=== PATIENT | male | born 1970 | race African-American/Black ===

== ENCOUNTER 2020-12-20 20:21 | Inpatient (IN) | payer BC, SELFPAY ==
[~2020-12-20 20:21] MED LIST: Heparin 1,000 UNITS/ML VIAL ONE
[2020-12-20] MEDS ORDERED: Cefepime 2 GM VIAL ONE (20:50)
[2020-12-20] MEDS ORDERED: Cefepime 1 GM VIAL ONE (20:56)
[2020-12-20 20:59] LABS: Hemoglobin 11.1 g/dL (14.0-18.0); Mean Corpuscular HGB CONC 31.1 g/dL (32.0-36.0); Mean Corpuscular Hemoglobin 28.7 pg (27.0-31.0); Mean Corpuscular Volume 92.3 fL (78.0-98.0); Mean Platelet Volume 8.6 fL (7.4-10.4); Platelet Count 276 thou/uL (130-400); RBC Distribution Width 11.1 % (11.5-14.5); Red Blood Cell (RBC) Count 3.85 mill/uL (4.70-6.10)
[2020-12-20] MEDS ORDERED: VANCOMYCIN 1.75 GM/350 ML BAG 1.75 GM in Premix Bag 1 BAG IVPB SCH (21:00)
[2020-12-20] MEDS ORDERED: Cefepime 1 GM in Sodium Chloride 0.9% 100 ML IVPB SCH (21:00)
[2020-12-20 21:14] LABS: Band 14 % (5-11); Lymphocytes 12 % (21-51); MDiff Complete? YES; Monocytes 13 % (0-10); Myelocyte 1 % (0-0); Neutrophil 60 % (42-75)
[2020-12-20 21:20] LABS: ALT (SGPT) 15 U/L (8-55); AST (SGOT) 13 U/L (5-34); Albumin 3.5 g/dL (3.5-5.0); Alkaline Phosphatase 118 U/L (40-110); Anion Gap 27 mmol/L (10-20); BUN (Urea Nitrogen) 45 mg/dL (8.4-25.7); Bilirubin, Total 0.7 mg/dL (0.2-1.2); Calc. Creatinine Clearance 0 mL/min (70-130); Calcium 9.4 mg/dL (7.8-10.44); Carbon Dioxide 15 mmol/L (22-29); Chloride 87 mmol/L (98-107); Globulin 4.4 g/dL (2.4-3.5); Protein, Total 7.9 g/dL (6.0-8.3); Sodium 124 mmol/L (136-145)
[2020-12-20] MEDS ORDERED: Acetaminophen 500 MG TAB ONE (21:22)
[2020-12-20 21:30] LABS: Glucose 703 mg/dL (70-105)
[2020-12-20] MEDS ORDERED: INSULIN REGULAR IN 0.9 % NACL 100 UNIT/100 ML BAG ONE (21:44)
--- NOTE | 2020-12-20 21:46 | RAD ---
EXAM: CHEST ONE VIEW HISTORY: Diabetic left foot. Open and draining wound. Discoloration to bottom of foot. COMPARISON: None FINDINGS: The cardiac silhouette and pulmonary vasculature are within normal limits. Inferior right lateral cos tophrenic angle is excluded from view. The lungs are otherwise clear. The osseous structures are intact. IMPRESSION: Exclusion of the inferior right lateral costophrenic angle. There is otherwise no acute cardiopulmona ry process.
--- NOTE | 2020-12-20 21:50 | RAD ---
Exam: XR Foot Lt 3 View STANDARD HISTORY: Diabetic left foot. Open and draining wound. Discoloration to bottom of foot. COMPARISON: None FINDINGS: Question of subtle subtendinous emphysema overlying the distal forefoot at the level of the metacarpa l phalangeal joints. Subcutaneous edema is seen involving the foot greater dorsally. An irregular metallic density seen along the plantar aspect of the distal forefoot which is only seen on the later al view and may be related to overlying artifact as this is not seen on opposing images. No osseous destruction is evident. No fracture or dislocation is seen. Scattered degenerative changes are present greater involving the tarsometatarsal joints. A plantar calcaneal enthesophyte is seen. Vascular calcifications are identified. IMPRESSION: 1. Subcutaneous soft tissue swelling with suggestion of subtle subcutaneous emphysema involving the d istal aspect of the forefoot only well appreciated on the AP view and not seen on lateral view. This could potentially be artifactual. Subcutaneous edema could be related to cellulitis in the corre ct clinical scenario. 2. No osseous destruction is seen to suggest radiographic evidence of osteomyelitis. If there is conc brandi for osteomyelitis, MRI left foot is recommended for further evaluation. 3. Metallic density overlying distal aspect plantar portion of the left foot only seen on lateral vie w and likely artifactual as this is not seen on opposing images.
--- NOTE | 2020-12-20 23:33 | PDOC.HHP ---
Hospitalist HPI Left foot swelling History of Present Illness: This is a 50-year-old male patient with a history of diabetes mellitus, hypertension who presents with swelling of his left foot for the past 3 days. Patient notes he woke up about 3 days ago to fill his left foot was and had difficulty stepping on it. He also noted pain rise up the medial side of his legs which have since then resolved. His left foot became more swollen and painful thus leading him to come to the ED for further evaluation. He denies any associated fever frequency dysuria nausea vomiting or diarrhea. He notes having had poor appetite for the past week and has hardly had any food. He went in for Covid test 2 days ago on that account which turned out negative. He denies any associated trauma to his foot. At presentation his blood pressure was 101/67, pulse 105, respiratory rate 20, temperature 101.5. He was saturating 99% on room air. Labs showed WBC of 27.0, hemoglobin 11.1, platelet count 276. Chemistry showed sodium of 124, bicarb 13, creatinine 2.67 with no baseline on file glucose was 703 and anion gap was 22. No initial ABG done. X-ray of his chest showed no acute intrathoracic process. X-ray of his foot could not exclude osteomyelitis. Patient was given IV fluids and started on DKA protocol. He was started on vancomycin and cefepime. Also started on DKA protocol hospitalist team was consulted for admission. Allergies/Adverse Reactions: Allergy/AdvReac Type Severity Reaction Status Date / Time No Known Drug Allergies Allergy Verified 12/21/20 16:49 Home Medications: Medication Instructions Recorded Confirmed Type Gabapentin 1 tab PO DAILY 12/21/20 12/21/20 History metFORMIN HCl 1 tab PO DAILY 12/21/20 12/21/20 History Past History: PMHx: Diabetes mellitus PSHx: Appendectomy FHx: None of significance Social: Lives alone, no smoking history. Occasional alcohol use Hospitalist HPI ROS Constitutional: reports: weakness, malaise. denies: fever, chills, sweats Respiratory: reports: cough, shortness of breath (Occasional acute), SOB with excertion. denies: hemoptysis Cardiovascular: denies: chest pain, palpitations, orthopnea Gastrointestinal: reports: nausea, vomiting. denies: abdominal pain, diarrhea, constipation Genitourinary: reports: other (Oliguria). denies: dysuria, frequency, incontinence, retention Musculoskeletal: reports: foot pain. denies: neck pain, shoulder pain Neurological: denies: weakness, numbness, incoordination, change in speech All other systems reviewed; all pertinent +/- noted in HPI/Subj Hospitalist Exam Extremities: no cyanosis, 1+ LE edema Extremities - other findings: Left foot swollen with blistering on dorsal surface and dark area on planta Hospitalist Results Result Diagrams: 12/26/20 06:00 12/26/20 21:06 Lab results: Laboratory Last Values WBC 27.0 thou/uL (4.8-10.8) H 12/20/20 20:39 RBC 3.85 mill/uL (4.70-6.10) L 12/20/20 20:39 Hgb 11.1 g/dL (14.0-18.0) L 12/20/20 20:39 Hct 35.5 % (42.0-52.0) L 12/20/20 20:39 MCV 92.3 fL (78.0-98.0) 12/20/20 20:39 MCH 28.7 pg (27.0-31.0) 12/20/20 20:39 MCHC 31.1 g/dL (32.0-36.0) L 12/20/20 20:39 RDW 11.1 % (11.5-14.5) L 12/20/20 20:39 Plt Count 276 thou/uL (130-400) 12/20/20 20:39 MPV 8.6 fL (7.4-10.4) 12/20/20 20:39 Neutrophils % (Manual) 60 % (42-75) 12/20/20 20:39 Band Neuts % (Manual) 14 % (5-11) H 12/20/20 20:39 Lymphocytes % (Manual) 12 % (21-51) L 12/20/20 20:39 Monocytes % (Manual) 13 % (0-10) H 12/20/20 20:39 Myelocytes % 1 % (0-0) H 12/20/20 20:39 Lymphocytes # Not Reportable 12/20/20 20:39 Sodium 124 mmol/L (136-145) L 12/20/20 20:39 Potassium 5.0 mmol/L (3.5-5.1) 12/20/20 20:39 Chloride 87 mmol/L (98-107) L 12/20/20 20:39 Carbon Dioxide 15 mmol/L (22-29) L 12/20/20 20:39 Anion Gap 27 mmol/L (10-20) H 12/20/20 20:39 BUN 45 mg/dL (8.4-25.7) H 12/20/20 20:39 Creatinine 2.67 mg/dL (0.7-1.3) H 12/20/20 20:39 Estimated GFR (MDRD) 31 12/20/20 20:39 Glucose 703 mg/dL (70-105) H* 12/20/20 20:39 Lactic Acid 1.8 mmol/L (0.5-2.2) 12/20/20 20:46 Calcium 9.4 mg/dL (7.8-10.44) 12/20/20 20:39 Total Bilirubin 0.7 mg/dL (0.2-1.2) 12/20/20 20:39 AST 13 U/L (5-34) 12/20/20 20:39 ALT 15 U/L (8-55) 12/20/20 20:39 Alkaline Phosphatase 118 U/L (40-110) H 12/20/20 20:39 Troponin I 0.018 ng/mL (< 0.028) 12/20/20 20:46 Serum Total Protein 7.9 g/dL (6.0-8.3) 12/20/20 20:39 Albumin 3.5 g/dL (3.5-5.0) 12/20/20 20:39 Globulin 4.4 g/dL (2.4-3.5) H 12/20/20 20:39 Albumin/Globulin Ratio 0.8 g/dL (1.2-2.2) L 12/20/20 20:39 Hospitalist H&P A/P Plan: This a 50-year-old male patient with a history of diabetes mellitus presenting with pain and swelling of his left foot with anorexia and weakness for the past week. Blood glucose is elevated with increased anion gap concerning for DKA secondary to diabetic foot. DKA Currently on DKA protocol We will check an ABG to establish a baseline Continue monitoring and IMCU Transition as needed. Diabetic foot Wound on left foot Wound care in a.m. US arterial vascular assessment MRI of foot to rule out osteomyelitis ID consult if indicated. Diabetes mellitus We will check A1c Monitor glucose. HENRY Creatinine above 2possibly due to reduced intake. Currently being hydrated Monitor BMP Swollen left leg Concerns for PEDoppler ultrasoundrenal VT prophylaxis Lovenox CODE STATUSfull code
[2020-12-20] MEDS ORDERED: HUMULIN R 100 UNITS in Sodium Chloride 0.9% 100 ML IVPB SCH (23:45)
[2020-12-20] MEDS ORDERED: D5 1/2 NS w/20 mEq KCL 1,000 ML IV PRN (23:49)
[2020-12-20] MEDS ORDERED: Electrolyte Replacement Protocol 1 EACH IVPB PRN (23:49)
[2020-12-20] MEDS ORDERED: NS 0.9% w/ 20 MEQ KCL 1,000 ML IV PRN ×2 (23:49)
[2020-12-20] MEDS ORDERED: Ondansetron ODT 4 MG TAB PO PRN (23:49)
[2020-12-20] MEDS ORDERED: Sodium Chloride 0.9% 1,000 ML IV PRN ×4 (23:49)
[2020-12-20] MEDS ORDERED: Dextrose 5 %-0.45 % NaCl 1,000 ML IV PRN (23:49)
[2020-12-21 00:08] LABS: Troponin I 0.019 ng/mL (< 0.028)
[2020-12-21 00:17] VITALS: BMI 37.4
[2020-12-21 00:26] LABS: Anion Gap 24 mmol/L (10-20); BUN (Urea Nitrogen) 47 mg/dL (8.4-25.7); Calc. Creatinine Clearance 68 mL/min (70-130); Calcium 8.7 mg/dL (7.8-10.44); Carbon Dioxide 13 mmol/L (22-29); Chloride 93 mmol/L (98-107); Potassium 4.4 mmol/L (3.5-5.1); Sodium 126 mmol/L (136-145)
[2020-12-21 00:29] LABS: Glucose 667 mg/dL (70-105)
[2020-12-21] MEDS ORDERED: Piperacillin/Tazobactam 4.5 GM VIAL ONE (00:55)
[2020-12-21 01:03] LABS: SARS-CoV-2 NAA Rapid Test Not Detected (NotDetected)
[2020-12-21] MEDS: Piperacillin/Tazobactam 4.5 GM in Sodium Chloride 0.9% 100 ML IVPB SCH (01:20)
[2020-12-21 03:28] LABS: Troponin I Less than 0.010 ng/mL (< 0.028)
[2020-12-21 03:44] LABS: Anion Gap 15 mmol/L (10-20); BUN (Urea Nitrogen) 42 mg/dL (8.4-25.7); Calc. Creatinine Clearance 76 mL/min (70-130); Calcium 8.7 mg/dL (7.8-10.44); Carbon Dioxide 17 mmol/L (22-29); Chloride 99 mmol/L (98-107); Glucose 444 mg/dL (70-105); Potassium 4.2 mmol/L (3.5-5.1); Sodium 127 mmol/L (136-145)
[2020-12-21 03:53] LABS: Band 13 % (5-11); Eosinophils 1 % (0-10); Hemoglobin 9.4 g/dL (14.0-18.0); Lymphocytes 12 % (21-51); MDiff Complete? YES; Mean Corpuscular HGB CONC 32.5 g/dL (32.0-36.0); Mean Corpuscular Hemoglobin 28.6 pg (27.0-31.0); Mean Platelet Volume 8.3 fL (7.4-10.4); Monocytes 5 % (0-10); Myelocyte 1 % (0-0); Neutrophil 68 % (42-75); Platelet Count 230 thou/uL (130-400); RBC Distribution Width 10.9 % (11.5-14.5); Red Blood Cell (RBC) Count 3.28 mill/uL (4.70-6.10); White Blood Cell (WBC) Count 21.7 thou/uL (4.8-10.8)
[2020-12-21] MEDS ORDERED: INSULIN REGULAR IN 0.9 % NACL 100 UNIT/100 ML BAG ONE (05:24)
[2020-12-21] MEDS ORDERED: Electrolyte Replacement Protocol 1 EACH IVPB SCH (06:34)
[2020-12-21] MEDS ORDERED: Sodium Chloride 0.9% 1,000 ML IV PRN ×4 (06:34)
[2020-12-21] MEDS ORDERED: NS 0.9% w/ 20 MEQ KCL 1,000 ML IV PRN ×2 (06:34)
[2020-12-21] MEDS ORDERED: Dextrose 5 %-0.45 % NaCl 1,000 ML IV PRN (06:34)
[2020-12-21] MEDS ORDERED: D5 1/2 NS w/20 mEq KCL 1,000 ML IV PRN (06:34)
[2020-12-21] MEDS ORDERED: HUMULIN R 100 UNITS in Sodium Chloride 0.9% 100 ML IVPB SCH (06:45)
[2020-12-21 07:21] LABS: Anion Gap 12 mmol/L (10-20); BUN (Urea Nitrogen) 33 mg/dL (8.4-25.7); Calc. Creatinine Clearance 89 mL/min (70-130); Calcium 8.5 mg/dL (7.8-10.44); Carbon Dioxide 21 mmol/L (22-29); Chloride 103 mmol/L (98-107); Glucose 235 mg/dL (70-105); Potassium 4.2 mmol/L (3.5-5.1); Sodium 132 mmol/L (136-145)
[2020-12-21 08:13] LABS: Anion Gap 12 mmol/L (10-20); BUN (Urea Nitrogen) 34 mg/dL (8.4-25.7); Calc. Creatinine Clearance 92 mL/min (70-130); Calcium 8.6 mg/dL (7.8-10.44); Carbon Dioxide 23 mmol/L (22-29); Chloride 103 mmol/L (98-107); Glucose 198 mg/dL (70-105); Potassium 4.1 mmol/L (3.5-5.1); Sodium 134 mmol/L (136-145)
[2020-12-21] MEDS ORDERED: Dextrose 50% Abboject 50 ML SYRINGE SLOW IVP PRN (10:02)
[2020-12-21] MEDS ORDERED: Dextrose 5% in Water 1,000 ML IV PRN (10:02)
[2020-12-21] MEDS ORDERED: Sodium Chloride 0.9% 1,000 ML IV SCH (10:15)
[2020-12-21] MEDS ORDERED: Succinylcholine 200 MG/10 ml SYRINGE FS ONE (10:29)
[2020-12-21] MEDS ORDERED: Dexamethasone 20 MG/5 ML VIAL ONE (10:29)
[2020-12-21] MEDS ORDERED: PROPOFOL 200 MG/20 ML VIAL ONE (10:29)
[2020-12-21] MEDS ORDERED: Ondansetron PF 4 MG/2 ML Vial ONE ×2 (10:29→10:34)
[2020-12-21] MEDS ORDERED: Rocuronium Bromide 10 MG/ML (10ML VIAL) ONE (10:29)
[2020-12-21] MEDS ORDERED: Glycopyrrolate 0.2 MG/ML 5 ML SYRINGE ONE (10:29)
[2020-12-21] MEDS ORDERED: PHENYLEPHRINE-NS 100 MCG/ML 10 ML SYRINGE ONE (10:29)
[2020-12-21] MEDS ORDERED: Lidocaine 1% PF 5 ML VIAL ONE (10:29)
[2020-12-21] MEDS: Heparin 5,000 UNITS/ML VIAL SC SCH ×3 (10:30→21:56)
[2020-12-21] MEDS: Ondansetron PF 4 MG/2 ML Vial IVP PRN (10:46)
--- NOTE | 2020-12-21 10:47 | MRI ---
MRI LEFT FOOT WITHOUT CONTRAST: HISTORY: Osteomyelitis. Diabetic foot. Swelling. COMPARISON: Radiographs of foot prior day. FINDINGS: BONES: On the T1 weighted imaging sequence, there are no foci of marrow signal replacement to suggest osteom yelitis. There is a high-grade mid foot degenerative change, likely the sequelae of diabetic neuropa thy. Some stress changes of the 2nd metatarsal base with some cortical thickening. SOFT TISSUES: In the plantar aspect of the forefoot, there is an area of susceptibility likely from the radiopaque foreign object. This does have a defect in the underlying superficial fascia. There is a dorsal mid foot fluid collection within the subcutaneous skin, a blister. Extensive infiltration of the planta r aspect of the mid foot and forefoot soft tissues. MUSCLES: Some muscle edema and atrophy, diabetic mastitis. No definite evidence for pyomyositis, although thi s evaluation is limited without intravenous contrast. TENDONS: No high-grade infectious tenosynovitis. IMPRESSION: 1. No findings for osteomyelitis. 2. Relatively moderate to high-grade diabetic neuropathy of the mid foot. 3. Dorsal mid foot and forefoot superficial blister. 4. Ferromagnetic object in the plantar aspect of the forefoot at the level of the 2nd metatarsal hea d with a defect in the underlying superficial fascia. This was seen on the prior radiograph as a den se radiopaque foreign object and removal is recommended. 5. Diabetic myositis. 6. Extensive cellulitis without high-grade abscess appreciated of the forefoot, although this evalua tion is somewhat limited without intravenous contrast. POS: OFF
[2020-12-21] MEDS ORDERED: Clindamycin/D5W 900 MG in Premix Bag 1 BAG IVPB SCH (11:00)
[2020-12-21 12:25] LABS: Anion Gap 19 mmol/L (10-20); BUN (Urea Nitrogen) 35 mg/dL (8.4-25.7); Calc. Creatinine Clearance 106 mL/min (70-130); Carbon Dioxide 12 mmol/L (22-29); Chloride 107 mmol/L (98-107); Glucose 163 mg/dL (70-105); Potassium 4.7 mmol/L (3.5-5.1); Sodium 133 mmol/L (136-145)
[2020-12-21] MEDS ORDERED: Scopolamine 1.5 mg/72 hour Patch TD SCH (14:00)
[2020-12-21 15:10] LABS: Anion Gap 15 mmol/L (10-20); BUN (Urea Nitrogen) 35 mg/dL (8.4-25.7); Calc. Creatinine Clearance 98 mL/min (70-130); Calcium 8.6 mg/dL (7.8-10.44); Carbon Dioxide 19 mmol/L (22-29); Chloride 102 mmol/L (98-107); Glucose 289 mg/dL (70-105); Potassium 4.9 mmol/L (3.5-5.1); Sodium 131 mmol/L (136-145)
--- NOTE | 2020-12-21 15:28 | PDOC.HOSPP ---
- Subjective Encounter Date: 12/21/20 Subjective: The patient was seen and examined. He feels hungry this afternoon. Still complaining of left foot pain and swelling. - Objective Vital Signs & Weight: Vital Signs (12 hours) Pulse Resp BP Pulse Ox 12/21/20 05:05 93 16 121/73 98 12/21/20 04:00 92 19 146/80 H 96 Weight Admit Weight 283 lb 15.286 oz Weight 283 lb 15.286 oz I&O: 12/20/20 12/21/20 12/22/20 06:59 06:59 06:59 Intake Total 50 Output Total 1800 Balance -1750 Result Diagrams: 12/21/20 02:48 12/21/20 14:40 Additional Labs: Accuchecks 12/21/20 12/21/20 12/21/20 10:05 08:27 07:31 POC Glucose 128 H 181 H 185 H 12/21/20 12/21/20 12/21/20 06:10 04:58 04:02 POC Glucose 242 H 301 H 312 H 12/21/20 12/21/20 12/21/20 02:51 02:01 01:17 POC Glucose 407 H 410 H 426 H 12/20/20 12/20/20 23:58 23:16 POC Glucose Greater than 530 H* Greater than 530 H* Hospitalist ROS - Medication Medications: Active Medications Generic Name Dose Route Start Last Admin Trade Name Freq PRN Reason Stop Dose Admin Heparin Sodium (Porcine) 5,000 units 12/21/20 09:00 12/21/20 10:30 Heparin 5,000 Units/Ml Vial SC 5,000 units TID EDDIE Administration Clindamycin Phosphate/Dextrose 50 mls @ 100 mls/hr 12/21/20 11:00 12/21/20 13:25 900 mg/ Device IVPB 50 mls 0300,1100,1900 EDDIE Administration Sodium Chloride 1,000 mls @ 75 mls/hr 12/21/20 10:15 12/21/20 10:50 Normal Saline 0.9% IV 1,000 mls .[id number] EDDIE Administration Ondansetron HCl 4 mg 12/20/20 23:49 12/21/20 10:46 Ondansetron Pf 4 Mg/2 Ml Vial IVP 4 mg Q6H PRN Administration Nausea/Vomiting Sodium Chloride 10 ml 12/21/20 09:00 12/21/20 10:31 Flush - Normal Saline 10 Ml Syringe IVF 10 ml Q12HR EDDIE Administration Hospitalist Exam Vitals: Vital Signs (12 hours) Pulse Resp BP Pulse Ox 12/21/20 05:05 93 16 121/73 98 12/21/20 04:00 92 19 146/80 H 96 Weight Admit Weight 283 lb 15.286 oz Weight 283 lb 15.286 oz General Appearance: awake alert ENT: normocephalic atraumatic Neck: supple Heart: RRR Respiratory: normal chest expansion, no tachypnea Extremities: no cyanosis, no clubbing Skin - other findings: Swelling and tenderness of the left foot. Hosp A/P (1) Cellulitis of left foot Code(s): L03.116 - CELLULITIS OF LEFT LOWER LIMB Status: Acute (2) Myositis of left foot Code(s): M60.872 - OTHER MYOSITIS, LEFT ANKLE AND FOOT Status: Acute (3) DKA (diabetic ketoacidoses) Code(s): E11.10 - TYPE 2 DIABETES MELLITUS WITH KETOACIDOSIS WITHOUT COMA Status: Acute - Plan No evidence of DKA at this time. Insulin drip discontinued. Start diabetic diet and aggressive sliding scale. MRI of the lower extremity showing evidence of cellulitis, myositis, and foreign body. Antibiotics were changed to IV clindamycin. Consult surgical team.
[2020-12-21] MEDS: Morphine 2 MG/ML VIAL SLOW IVP PRN ×2 (15:30→21:58)
[2020-12-21] MEDS ORDERED: Fentanyl 100 MCG/2 ML VIAL ONE (17:18)
[2020-12-21] MEDS ORDERED: Sodium Chloride 0.9% 0 ML ONE (17:35)
[2020-12-21] MEDS ORDERED: Piperacillin/Tazobactam 3.375 GM VIAL ONE (17:35)
[2020-12-21] MEDS ORDERED: Promethazine HCl 25 MG/ML VIAL IM PRN (19:14)
[2020-12-21] MEDS ORDERED: Promethazine HCl 25 MG/ML VIAL SLOW IVP PRN (19:14)
[2020-12-21] MEDS ORDERED: Ondansetron HCl/PF 4 MG/2 ML Vial IVP PRN (19:14)
[2020-12-21] MEDS: Piperacillin/Tazobactam 3.375 GM in Sodium Chloride 0.9% 100 ML IVPB SCH (19:24)
--- NOTE | 2020-12-21 19:29 | OP ---
DATE OF PROCEDURE: 12/21/2020 PREOPERATIVE DIAGNOSIS: Severe diabetic necrotizing infection of left foot with tracking plantar to the mid foot, dorsum to the mid foot. POSTOPERATIVE DIAGNOSIS: Severe diabetic necrotizing infection of left foot with tracking plantar to the mid foot, dorsum to the mid foot. PROCEDURES PERFORMED: Amputation of left 1st, 2nd, and 3rd toes and metatarsals with debridement of extensive soft tissue necrotizing infection, pulse irrigation, dorsal incision extended proximally and plantar incision proximally to drain proximal tracking infection. Debridement of subcutaneous tissue, fascia, tendon. Note, pulsatile bleeding, no evidence of PAD. ANESTHESIA: General, LMA. DESCRIPTION OF PROCEDURE: The patient was taken to the operating room, where under general anesthesia, left lower extremity was prepared with Betadine and draped in routine fashion. This operation was done in the late evening without n.p.o. status due to the emergent nature of the severe necrotizing infection. Prior to this operation, at bedside, the blistering skin, necrotic tissue debrided sharply, revealing a deep necrotizing infection. Great, 2nd, and 3rd toes and metatarsal required resection to control the infection, and resected adjacent necrotic tissue. Necrotizing process tracked plantar proximally, digitally opening this tract, draining purulent material. Performed the same dorsally. Incision extended plantar and dorsally to unroof these tracts to allow wound care and drain the infection and debride the necrotic underlying tissue. Hemostasis gained with cautery. Wound was pulse irrigated. Metatarsals resected proximally with rongeurs. Good hemostasis obtained with cautery. Surgicel and Bk applied after gauze dressing placed in the plantar proximal tract. Sterile dressings applied. The patient tolerated the procedure well. The patient is at risk for BKA. Job ID: [id number]
[2020-12-21] MEDS ORDERED: Enoxaparin Sodium 30 MG/0.3 ML SYRINGE SC SCH (21:00)
[2020-12-21] MEDS: Benzonatate 100 MG CAP PO PRN (21:56)
[2020-12-21] MEDS: Sodium Chloride 0.9% 1,000 ML IV SCH (21:56)
[2020-12-21] MEDS: VANCOMYCIN 1.75 GM/350 ML BAG 1.75 GM in Premix Bag 1 BAG IVPB SCH (22:00)
[2020-12-21] MEDS: HumaLOG 300 UNITS/3 ML VIAL SC PRN (22:16)
--- NOTE | 2020-12-21 23:51 | ULT ---
EXAM: Bilateral lower extremity venous Doppler HISTORY: Bilateral worsening pain and edema worse on the left. History of left foot surgery today. FINDINGS: Grayscale, color-flow, Doppler evaluation, spectral analysis of the bilateral lower extremity venous structures is performed with 2-D imaging. The bilateral common femoral, superficial femoral, popliteal, posterior tibial, proximal greater saphenous and profunda femoral veins are imaged. There is normal luminal compressibility, flow, and augmentation in the visualized deep venous structu res of the bilateral lower extremities. There is a small fluid collection at the posteromedial aspect of the right knee measuring 4.3 cm x 1. 7 cm x 2.8 cm which does not demonstrate flow and is most compatible with a small Mchugh's cyst. There is subcutaneous edema seen involving the distal left lower extremity posterior to the knee and calf. IMPRESSION: 1. No evidence of a deep vein thrombosis in the visualized deep venous structures bilateral lower ext remities. 2. Subcutaneous edema posterior to the left knee and calf. 3. Mchugh's cyst right popliteal fossa.
[2020-12-22] MEDS: Sodium Chloride 0.9% 1,000 ML IV SCH ×4 (00:05→21:24)
[2020-12-22] MEDS: Piperacillin/Tazobactam 3.375 GM in Sodium Chloride 0.9% 100 ML IVPB SCH ×4 (00:53→17:19)
--- NOTE | 2020-12-22 07:14 | CON ---
DATE OF CONSULTATION: HISTORY OF PRESENT ILLNESS: Jordy Metzger is a 50-year-old black male patient, 6 feet, 1 inch, 283 pounds, 37 BMI, has had problems with his left foot for more than a week. It came to the point he could not walk on it. He presented to the emergency room. X-rays revealed what looked to be a foreign body. MRI confirmed this. MRI revealed some fluid collections. The patient was admitted on 12/20/2020. COVID test is negative. He has history of insulin-dependent diabetes mellitus, obesity, metabolic syndrome, hypertension. He was placed on cefepime and discontinued, now on Cleocin. Evaluation of his foot reveals blistering, dorsum, over the 1st, 2nd, and 3rd toes and plantar, more extensively. Once this blistered skin was removed, there was necrotic tissue plantar, extending deep between the 1st and 2nd toe. Cultures were submitted. Cultures have not been submitted to this point. Blistered tissue unroofed, revealed cloudy fluid, sent for culture. The patient has had fruit today. He has been having nausea and vomiting, cannot hold down much food. Hemoglobin 11 on admission, 9.4 today. White count on admission 27, 21.7 today. He had a left shift to 14% yesterday, 13% today. Glucose is 185 to 128. BUN and creatinine are 34 and 1.71 this morning, this afternoon 35 and 1.6, have been checked three times today. ALLERGIES: NONE. SOCIAL HISTORY: Tobacco, none. Alcohol, infrequently. 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 Insurance is not provided. MEDICATIONS: As outpatient; 1. Metformin. 2. Gabapentin. PAST SURGICAL HISTORY: Appendectomy. PAST MEDICAL HISTORY: Diabetes mellitus, insulin dependent; metabolic syndrome; obesity. REVIEW OF SYSTEMS: Ten-point noncontributory. FAMILY HISTORY: Noncontributory. PHYSICAL EXAMINATION: VITAL SIGNS: 6 feet, 1 inch, 283 pounds, 37 BMI. 97.5, 95, 146/76. HEAD, EARS, EYES, NOSE, AND THROAT: Unremarkable. LUNGS: Clear to auscultation CARDIAC: Regular rate and rhythm without murmur or gallop. ABDOMEN: Soft, obese. EXTREMITIES: Palpable femoral, popliteal pulse. He has edematous left foot. He has severe blistering in dorsal and plantar foot and between the 1st, 2nd, and 3rd toes. Unroofing these blister material revealed some cloudy fluid, sent for culture. There was necrotic tissue on the plantar aspect and when removed, extends deeply. This tissue was cultured. LABORATORY DATA: As noted above. ASSESSMENT AND PLAN: 1. Severe necrotizing infection of left foot. We would discontinue the Cleocin and be more aggressive with intravenous antibiotics with vancomycin and Zosyn. We would consult Infectious Disease. Emergently, will go to the operating room, even though not n.p.o. and plan surgical debridement and amputation of toes as indicated. The patient understands this and consents. We will leave the wound open, healing by secondary intention. Wound Care will be consulted. He will need outpatient wound care with wound VAC. He will need outpatient antibiotics. The patient is at risk for limb loss. 2. Insulin-dependent diabetes mellitus. 3. Metabolic syndrome, obesity. 4. Neuropathy. Job ID: [id number]
[2020-12-22 07:25] LABS: Anion Gap 16 mmol/L (10-20); BUN (Urea Nitrogen) 37 mg/dL (8.4-25.7); Calc. Creatinine Clearance 100 mL/min (70-130); Calcium 8.3 mg/dL (7.8-10.44); Carbon Dioxide 17 mmol/L (22-29); Chloride 103 mmol/L (98-107); Glucose 476 mg/dL (70-105); Hemoglobin A1c 11.7 % (4.0-6.0); Potassium 5.2 mmol/L (3.5-5.1); Sodium 131 mmol/L (136-145)
--- NOTE | 2020-12-22 08:27 | OP ---
DATE OF PROCEDURE: 12/21/2020 PREOPERATIVE DIAGNOSIS: Severe necrotizing infection of left foot, admitted yesterday. POSTOPERATIVE DIAGNOSIS: Severe necrotizing infection of left foot, admitted yesterday. PROCEDURE PERFORMED: 1. Surgical bedside debridement of blistered dorsum and plantar foot. 2. Bedside debridement of skin and subcutaneous tissue and plantar with necrotic tissue, extending deeply. 3. Culture of wound. PLAN: Emergent operating room despite lack of n.p.o. status for emergent amputation debridement to allow limb salvage as much as possible DESCRIPTION OF PROCEDURE: With the patient at bedside in his room, alcohol prep was used and blistered skin plantar dorsally excised extensively. Underlying cloudy fluid cultured. Necrotic skin and subcutaneous tissue debrided sharply plantar between the 2nd and 3rd toes, extending deeply. Cultures obtained. Sterile dressing applied. Job ID: [id number]
[2020-12-22] MEDS: Piperacillin/Tazobactam 4.5 GM in Sodium Chloride 0.9% 100 ML IVPB SCH (08:57)
[2020-12-22] MEDS: Heparin 5,000 UNITS/ML VIAL SC SCH ×3 (09:06→21:22)
[2020-12-22] MEDS: VANCOMYCIN 1.75 GM/350 ML BAG 1.75 GM in Premix Bag 1 BAG IVPB SCH (09:06)
[2020-12-22] MEDS: Morphine 2 MG/ML VIAL SLOW IVP PRN ×3 (09:36→21:29)
[2020-12-22 09:38] LABS: Band 28 % (5-11); Hemoglobin 9.3 g/dL (14.0-18.0); Lymphocytes 9 % (21-51); MDiff Complete? YES; Mean Corpuscular Hemoglobin 29.2 pg (27.0-31.0); Mean Corpuscular Volume 91.2 fL (78.0-98.0); Metamyelocyte 2 % (0-0); Monocytes 6 % (0-10); Myelocyte 1 % (0-0); Neutrophil 54 % (42-75); Platelet Count 250 thou/uL (130-400); Platelet Morphology Comment Appears Adequate; Polychromasia SLIGHT = 2-3 cells (100X) (0-2/hpf); RBC Distribution Width 11.1 % (11.5-14.5); Red Blood Cell (RBC) Count 3.18 mill/uL (4.70-6.10); White Blood Cell (WBC) Count 18.9 thou/uL (4.8-10.8)
[2020-12-22] MEDS ORDERED: NPH, Human Insulin Isophane 300 UNIT/3 ML VIAL SC SCH ×2 (11:30→21:00)
[2020-12-22] MEDS: HumaLOG 300 UNITS/3 ML VIAL SC PRN ×2 (13:01→16:29)
[2020-12-22 15:12] LABS: Anion Gap 17 mmol/L (10-20); BUN (Urea Nitrogen) 38 mg/dL (8.4-25.7); Calc. Creatinine Clearance 100 mL/min (70-130); Calcium 8.7 mg/dL (7.8-10.44); Carbon Dioxide 15 mmol/L (22-29); Chloride 103 mmol/L (98-107); Potassium 4.9 mmol/L (3.5-5.1); Sodium 130 mmol/L (136-145)
[2020-12-22 15:25] LABS: Glucose 561 mg/dL (70-105)
--- NOTE | 2020-12-22 15:39 | PRG ---
DATE OF SERVICE: 12/22/2020 SUBJECTIVE: Mr. Metzger is doing well today. Wound Care placed a wound VAC. They report his wound looks good. The patient remains afebrile. His white count is down to 18,000 from 21,000 yesterday. He still has a left shift, 28% bands. Cultures obtained reveal Streptococcus. Dr. Larson has been consulted. The patient feels better, although wound care VAC change causes pain. He is feeling comfortable. Physical therapy has been ordered to help with ambulation. Weightbear as tolerated. Postop orthotic shoe has been provided to use. ASSESSMENT AND PLAN: Severe necrotizing infection of foot, status post debridement. We would plan to view his wound. Wound Care will change his VAC in the next 48 hours. Continue antibiotics, supportive care. Job ID: [id number]
[2020-12-22] MEDS: cefTRIAXone\\ROCEPHIN 2 GM in Sodium Chloride 0.9% 100 ML IVPB SCH (18:23)
--- NOTE | 2020-12-22 20:08 | PDOC.HOSPP ---
- Subjective Encounter Date: 12/22/20 Encounter Time: 12:30 Subjective: Patient seen and examined for diabetic foot infection requiring surgical intervention. Pain controlled on current regimen. Denies any fever or chills. No nausea or vomiting. - Objective Vital Signs & Weight: Vital Signs (12 hours) BP Pulse Ox 12/22/20 19:13 97 12/22/20 09:11 123/75 Weight Admit Weight 284 lb Weight 283 lb 15.286 oz I&O: 12/21/20 12/22/20 12/23/20 06:59 06:59 06:59 Intake Total 50 2000 Output Total 1800 900 Balance -1750 1100 Result Diagrams: 12/22/20 05:34 12/22/20 14:33 Additional Labs: Accuchecks 12/22/20 12/22/20 12/22/20 19:31 16:18 11:23 POC Glucose 423 H 453 H 425 H 12/22/20 12/21/20 04:54 20:32 POC Glucose 400 H 386 H Abnormal Lab Results - Last 48 hrs 12/20/20 20:39: WBC 27.0 H, RBC 3.85 L, Hgb 11.1 L, Hct 35.5 L, MCHC 31.1 L, RDW 11.1 L, Band Neuts % (Manual) 14 H, Lymphocytes % (Manual) 12 L, Monocytes % (Manual) 13 H, Myelocytes % 1 H 12/20/20 20:39: Sodium 124 L, Chloride 87 L, Carbon Dioxide 15 L, Anion Gap 27 H, BUN 45 H, Creatinine 2.67 H, Alkaline Phosphatase 118 H, Globulin 4.4 H, Albumin/Globulin Ratio 0.8 L 12/20/20 23:35: Sodium 126 L, Chloride 93 L, Carbon Dioxide 13 L, Anion Gap 24 H, BUN 47 H, Creatinine 2.31 H 12/21/20 02:48: Sodium 127 L, Carbon Dioxide 17 L, BUN 42 H, Creatinine 2.07 H 12/21/20 02:48: WBC 21.7 H, RBC 3.28 L, Hgb 9.4 L, Hct 28.8 L, RDW 10.9 L, Band Neuts % (Manual) 13 H, Lymphocytes % (Manual) 12 L, Myelocytes % 1 H 12/21/20 06:51: Sodium 132 L, Carbon Dioxide 21 L, BUN 33 H, Creatinine 1.77 H 12/21/20 07:39: Sodium 134 L, BUN 34 H, Creatinine 1.71 H 12/21/20 10:58: Sodium 133 L, Carbon Dioxide 12 L, BUN 35 H, Creatinine 1.48 H 12/21/20 14:40: Sodium 131 L, Carbon Dioxide 19 L, BUN 35 H, Creatinine 1.60 H 12/22/20 03:30: Sodium 131 L, Potassium 5.2 H, Carbon Dioxide 17 L, BUN 37 H, Creatinine 1.57 H 12/22/20 03:30: Hemoglobin A1c 11.7 H 12/22/20 05:34: WBC 18.9 H, RBC 3.18 L, Hgb 9.3 L, Hct 29.0 L, RDW 11.1 L, Band Neuts % (Manual) 28 H, Lymphocytes % (Manual) 9 L, Myelocytes % 1 H 12/22/20 14:33: Sodium 130 L, Carbon Dioxide 15 L, BUN 38 H, Creatinine 1.57 H Microbiology - Entire Visit 12/21/20 16:33 Foot Bacterial Culture - Preliminary Streptococcus agalactiae Gp. B 12/21/20 18:11 Foot - Abscess Bacterial Culture - Preliminary Streptococcus agalactiae Gp. B 12/21/20 18:11 Foot - Abscess Anaerobic Culture - Pending 12/20/20 20:41 Venous blood - Right Arm Blood Culture - Preliminary NO GROWTH AT 48 HOURS 12/20/20 20:53 Venous blood - Left Arm Blood Culture - Preliminary NO GROWTH AT 48 HOURS 12/20/20 20:41 Foot - Pending Bacterial Culture - Preliminary Presumptive Enterococcus sp. Streptococcus agalactiae Gp. B Radiology Reviewed by me: Yes (MRI lower extremity reviewed) Hospitalist ROS - Review of Systems Respiratory: denies: cough, dry, shortness of breath, hemoptysis, SOB with excertion, pleuritic pain, sputum, wheezing, other Cardiovascular: denies: chest pain, palpitations, orthopnea, paroxysmal noc. dyspnea, edema, light headedness, other - Medication Medications: Active Medications Generic Name Dose Route Start Last Admin Trade Name Freq PRN Reason Stop Dose Admin Benzonatate 100 mg 12/21/20 21:06 12/21/20 21:56 Benzonatate 100 Mg Cap PO 100 mg Q6H PRN Administration Cough Heparin Sodium (Porcine) 5,000 units 12/21/20 09:00 12/22/20 16:28 Heparin 5,000 Units/Ml Vial SC 5,000 units TID EDDIE Administration Sodium Chloride 1,000 mls @ 150 mls/hr 12/21/20 16:36 12/22/20 13:03 Normal Saline 0.9% IV 1,000 mls .Q6H40M EDDIE Administration Ceftriaxone Sodium 2 gm/ 100 mls @ 200 mls/hr 12/22/20 18:00 12/22/20 18:23 Sodium Chloride IVPB 100 mls Q24HR EDDIE Administration Insulin Human Lispro 0 units 12/21/20 10:02 12/22/20 16:29 Humalog 300 Units/3 Ml Vial SC 13 units .AGGRESSIVE SLIDING PRN Administration Aggressive Correctional Scale Morphine Sulfate 2 mg 12/21/20 13:29 12/22/20 16:34 Morphine 2 Mg/Ml Vial SLOW IVP 2 mg Q4H PRN Administration Pain Ondansetron HCl 4 mg 12/20/20 23:49 12/21/20 10:46 Ondansetron Pf 4 Mg/2 Ml Vial IVP 4 mg Q6H PRN Administration Nausea/Vomiting Scopolamine 1.5 mg 12/21/20 14:00 12/21/20 15:30 Scopolamine 1.5 Mg/72 Hour Patch TD 1.5 mg Q3D EDDIE Administration Sodium Chloride 10 ml 12/21/20 09:00 12/22/20 09:06 Flush - Normal Saline 10 Ml Syringe IVF Not Given Q12HR [facility] Hospitalist Exam Vitals: Vital Signs (12 hours) BP Pulse Ox 12/22/20 19:13 97 12/22/20 09:11 123/75 Weight Admit Weight 284 lb Weight 283 lb 15.286 oz General Appearance: awake alert Neck: supple, symmetric, no JVD, no thyromegaly Heart: RRR, no gallops, no rubs, normal peripheral pulses Respiratory: no wheezes, no rales, no ronchi, normal chest expansion Gastrointestinal: soft, non-tender, non-distended, normal bowel sounds Extremities: no cyanosis Extremities - other findings: Wound dressing with VAC noted Neurological: no new deficit Psychiatric: normal affect, A&O x 3 Hosp A/P - Plan DVT proph w/heparin Severe sepsis due to severe necrotizing infection of the left foot due to group B strep and enterococcus s/p debridement 2/2 Diabetic ketoacidosis on admissionRequiring insulin drip Acute kidney injury Obesity with a BMI 37.5 Hyponatremia/hyperkalemia Chronic anemia suspected due to nutritional deficiency Plan: Vancomycin and Zosyn discontinued per infectious disease. Patient started on ceftriaxone and Flagyl. Continue IV hydration. Start NPH. Change sliding scale to aggressive. Blood sugar checks q4 hourly. Recheck labs in a.m. continue wound care/wound VAC. General surgery and infectious disease input appreciated. Continue diabetic diet. Physical therapy.
--- NOTE | 2020-12-22 20:14 | CON ---
DATE OF CONSULTATION: 12/22/2020 REASON: Left foot infection. HISTORY OF PRESENT ILLNESS: 50-year-old, looks like first admission to this hospital, presented with a history of type 2 diabetes, obesity, and a 1-week history of anorexia and left foot pain in the plantar aspect. He did not pay much attention to it, but then Sunday he noticed a fluid-filled blister in the dorsal aspect. He had a negative COVID test in emergency room and was admitted with a fairly aggressive infection in the right mid foot region. He had surgical debridement by Dr. Arias and the operative report was reviewed. 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 This was on December 21. Currently, he denies any headaches, no visual symptoms, sore throat, odynophagia, or dysphagia. No cough or sputum production. No chest pain. No abdominal pain or diarrhea. No genitourinary symptoms. Mild pain after morphine in the left foot. PAST MEDICAL HISTORY: Obesity, type 2 diabetes, neuropathy, appendectomy. SOCIAL HISTORY: Works cleaning pools. Former smoker. Drinks occasionally. Lives in the area. ALLERGIES: NONE. FAMILY HISTORY: Noncontributory. CURRENT MEDICATIONS: 1. Dextrose. 2. Heparin. 3. Insulin. 4. Morphine. 5. Zofran. 6. Zosyn. 7. Vancomycin. PHYSICAL EXAMINATION: VITAL SIGNS: T-max 99.3, blood pressure 120/70, heart rate 85, respirations 18, and O2 saturation 97 on room air. SKIN: On admission, he had this blister in the dorsal aspect of the forefoot and this necrotic purulent blister extending from the metatarsophalangeal areas towards the midline of the mid foot region, plantar aspect. Postop picture where the extensive area was I and D'd with dried up red tissue covering most of the base. Pathology is pending. No lymphadenopathy. HEENT: Noncontributory. Numerous teeth in place in fairly decent shape. No jugular vein distention. LUNGS: Symmetric. Clear breath sounds. S1, S2, regular rate. No S3 or S4. ABDOMEN: Soft. Not distended or tender. No ascites. No bladder distention. No joint inflammatory activity outside the area of involvement. Pulses are 1+ in dorsalis pedis. NEURO: Nonfocal including cognitive function. LABORATORY DATA: White cell count is down from 27 to 18.9, hemoglobin 9.3, platelets 250 with 28% bands. Sodium 130, creatinine 1.57. Liver profile was normal on admission. Albumin 3.5. SARS-CoV-2 PCR not detected. Cultures with group B strep in all the samples, one of them has Enterococcus as well. I think this was a bedside debridement that Dr. Arias did. ASSESSMENT: Type 2 diabetes and likely perforating injury to the foot with development of this necrotizing infection due to group B Streptococcus. The patient has had surgical debridement and we will go ahead and switch him to Rocephin and Flagyl. He will need protracted treatment. He does have decent vascular supply, so it should be able to heal this, but is at risk for further higher levels of amputation. Other sites of involvement are not apparent at this time. Job ID: [id number]
[2020-12-22] MEDS: Cepastat Lozenges 1 LOZ PO PRN (21:21)
[2020-12-22] MEDS: Benzonatate 100 MG CAP PO PRN (21:21)
[2020-12-22] MEDS: NPH, Human Insulin Isophane 300 UNIT/3 ML VIAL SC SCH (21:22)
[2020-12-22] MEDS: metroNIDAZOLE 500 MG in Premix Bag 1 BAG IVPB SCH (21:23)
[2020-12-23] MEDS: HumaLOG 300 UNITS/3 ML VIAL SC PRN ×4 (00:53→17:28)
[2020-12-23] MEDS: Cepastat Lozenges 1 LOZ PO PRN ×2 (00:55→03:45)
[2020-12-23] MEDS: Sodium Chloride 0.9% 1,000 ML IV SCH ×2 (03:43→12:03)
[2020-12-23] MEDS: Morphine 2 MG/ML VIAL SLOW IVP PRN ×3 (03:44→20:28)
[2020-12-23] MEDS: metroNIDAZOLE 500 MG in Premix Bag 1 BAG IVPB SCH ×3 (05:57→21:07)
[2020-12-23 06:51] LABS: Mean Corpuscular HGB CONC 32.5 g/dL (32.0-36.0); Mean Corpuscular Hemoglobin 29.6 pg (27.0-31.0); Mean Corpuscular Volume 91.1 fL (78.0-98.0); Mean Platelet Volume 8.1 fL (7.4-10.4); Platelet Count 236 thou/uL (130-400); RBC Distribution Width 10.9 % (11.5-14.5); White Blood Cell (WBC) Count 13.6 thou/uL (4.8-10.8)
[2020-12-23 07:19] LABS: Anion Gap 11 mmol/L (10-20); BUN (Urea Nitrogen) 30 mg/dL (8.4-25.7); Calc. Creatinine Clearance 138 mL/min (70-130); Carbon Dioxide 20 mmol/L (22-29); Chloride 108 mmol/L (98-107); Glucose 269 mg/dL (70-105); Magnesium 2.4 mg/dL (1.6-2.6); Potassium 3.8 mmol/L (3.5-5.1); Sodium 135 mmol/L (136-145)
[2020-12-23 07:43] LABS: Band 18 % (5-11); Eosinophils 1 % (0-10); Hypochromia SLIGHT = 6-15 cells (100X) (0-5/hpf); Lymphocytes 20 % (21-51); MDiff Complete? YES; Metamyelocyte 4 % (0-0); Monocytes 1 % (0-10); Myelocyte 5 % (0-0); Neutrophil 50 % (42-75); Platelet Morphology Comment Appears Adequate; Reactive Lymphocytes 1 % (0-10)
[2020-12-23] MEDS: Heparin 5,000 UNITS/ML VIAL SC SCH ×3 (08:30→20:33)
[2020-12-23] MEDS: Saccharomyces boulardii 250 MG CAP PO SCH (08:30)
[2020-12-23] MEDS: NPH, Human Insulin Isophane 300 UNIT/3 ML VIAL SC SCH ×2 (08:30→20:35)
[2020-12-23 08:43] LABS: Vancomycin, Trough 11.8 ug/mL
[2020-12-23] MEDS ORDERED: GUAIFENESIN SF SOLN 200 MG/10 ML UDCUP PO PRN (10:38)
[2020-12-23] MEDS ORDERED: Chloraseptic Spray 180 ml Bottle PO PRN (10:38)
[2020-12-23] MEDS ORDERED: Cepastat Lozenges 1 LOZ PO PRN (10:38)
[2020-12-23] MEDS: 1/2 NS w/KCL 20 mEq 1,000 ML IV SCH ×3 (11:53→20:32)
--- NOTE | 2020-12-23 15:28 | PRG ---
DATE OF SERVICE: 12/23/2020 SUBJECTIVE: Mr. Metzger is okay. He has had a little bit of pain. No respiratory symptoms. Actually, he is coughing a little bit intermittently, mostly dry. Some posterior nasal drip. No abdominal pain. Voiding without difficulty. He is able to walk with assistance with a walker. OBJECTIVE: VITAL SIGNS: T-max 99.7, BP 130/80, heart rate 81, respirations 18, and O2 saturation 96. GENERAL: He does not appear in distress. SKIN: Peripheral IV access. Negative pressure dressing in left foot amputation site. No lymphadenopathy. HEENT: Normal. LUNGS: Clear. HEART: S1 and S2. Regular rate. ABDOMEN: Soft, not distended or tender. No ascites. No bladder distention. EXTREMITIES: Pulses are 1+ in popliteals. ASSESSMENT AND PLAN: Tomorrow is the day for wound revision, so we will see what it looks like tomorrow for discharge planning and it looks like he is going to need a PICC line. I will treat him for protracted periods of time with Rocephin and Flagyl. End date of therapy is estimated 01/30. Weekly labs including CBC, CRP, and basic metabolic panel. Job ID: [id number]
[2020-12-23] MEDS: cefTRIAXone\\ROCEPHIN 2 GM in Sodium Chloride 0.9% 100 ML IVPB SCH (17:27)
[2020-12-23] MEDS: guaiFENesin ER 600 MG TAB PO SCH (20:33)
--- NOTE | 2020-12-23 23:15 | PDOC.HOSPP ---
- Subjective Encounter Date: 12/23/20 Encounter Time: 16:30 Subjective: Patient seen and examined for diabetic foot infection. Pain controlled. Denies any fever or chills. - Objective Vital Signs & Weight: Vital Signs (12 hours) Temp Pulse Resp BP Pulse Ox 12/23/20 20:30 98.9 F 99 18 125/70 98 12/23/20 20:00 98 Weight Admit Weight 284 lb Weight 283 lb 15.286 oz I&O: 12/22/20 12/23/20 12/24/20 06:59 06:59 06:59 Intake Total 4200 Output Total 2100 200 Balance 2100 -200 Result Diagrams: 12/23/20 06:03 12/23/20 06:03 Additional Labs: Accuchecks 12/23/20 12/23/20 12/23/20 20:37 16:09 11:07 POC Glucose 237 H 159 H 241 H 12/23/20 12/23/20 03:49 00:41 POC Glucose 318 H 397 H Abnormal Lab Results - Last 48 hrs 12/22/20 03:30: Sodium 131 L, Potassium 5.2 H, Carbon Dioxide 17 L, BUN 37 H, Creatinine 1.57 H 12/22/20 03:30: Hemoglobin A1c 11.7 H 12/22/20 05:34: WBC 18.9 H, RBC 3.18 L, Hgb 9.3 L, Hct 29.0 L, RDW 11.1 L, Band Neuts % (Manual) 28 H, Lymphocytes % (Manual) 9 L, Myelocytes % 1 H 12/22/20 14:33: Sodium 130 L, Carbon Dioxide 15 L, BUN 38 H, Creatinine 1.57 H 12/23/20 06:03: Sodium 135 L, Chloride 108 H, Carbon Dioxide 20 L, BUN 30 H 12/23/20 06:03: WBC 13.6 H, RBC 2.70 L, Hgb 8.0 L, Hct 24.6 L, RDW 10.9 L, Band Neuts % (Manual) 18 H, Lymphocytes % (Manual) 20 L, Myelocytes % 5 H Microbiology - Entire Visit 12/21/20 16:33 Foot Bacterial Culture - Preliminary Streptococcus agalactiae Gp. B 12/20/20 20:41 Foot - Pending Bacterial Culture - Preliminary Enterococcus faecalis Streptococcus agalactiae Gp. B 12/21/20 18:11 Foot - Abscess Bacterial Culture - Preliminary Streptococcus agalactiae Gp. B 12/21/20 18:11 Foot - Abscess Anaerobic Culture - Pending 12/20/20 20:41 Venous blood - Right Arm Blood Culture - Preliminary NO GROWTH AT 48 HOURS 12/20/20 20:53 Venous blood - Left Arm Blood Culture - Preliminary NO GROWTH AT 48 HOURS Hospitalist ROS - Review of Systems Respiratory: denies: cough, dry, shortness of breath, hemoptysis, SOB with excertion, pleuritic pain, sputum, wheezing, other Cardiovascular: denies: chest pain, palpitations, orthopnea, paroxysmal noc. dyspnea, edema, light headedness, other - Medication Medications: Active Medications Generic Name Dose Route Start Last Admin Trade Name Freq PRN Reason Stop Dose Admin Benzonatate 100 mg 12/21/20 21:06 12/22/20 21:21 Benzonatate 100 Mg Cap PO 100 mg Q6H PRN Administration Cough Guaifenesin 600 mg 12/23/20 21:00 12/23/20 20:33 Guaifenesin Er 600 Mg Tab PO 600 mg Q12HR EDDIE Administration Heparin Sodium (Porcine) 5,000 units 12/21/20 09:00 12/23/20 20:33 Heparin 5,000 Units/Ml Vial SC 5,000 units TID EDDIE Administration Ceftriaxone Sodium 2 gm/ 100 mls @ 200 mls/hr 12/22/20 18:00 12/23/20 17:27 Sodium Chloride IVPB 100 mls Q24HR EDDIE Administration Metronidazole 500 mg/ Device 100 mls @ 100 mls/hr 12/22/20 22:00 12/23/20 21:07 IVPB 100 mls Q8HR EDDIE Administration Potassium Chloride/Sodium Chloride 1,000 mls @ 125 mls/hr 12/23/20 09:00 12/23/20 20:32 1/2 Ns W/Kcl 20 Meq IV 1,000 mls .Q8H EDDIE Administration Insulin Human Lispro 0 units 12/23/20 17:17 12/23/20 17:28 Humalog 300 Units/3 Ml Vial SC 2 unit .MODERATE SLIDING SC PRN Administration Moderate Correctional Scale Insulin Human NPH 25 unit 12/22/20 21:00 12/23/20 20:35 Nph, Human Insulin Isophane 300 Unit/3 Ml Vial SC 25 units BID EDDIE Administration Morphine Sulfate 2 mg 12/21/20 13:29 12/23/20 20:28 Morphine 2 Mg/Ml Vial SLOW IVP 2 mg Q4H PRN Administration Pain Ondansetron HCl 4 mg 12/20/20 23:49 12/21/20 10:46 Ondansetron Pf 4 Mg/2 Ml Vial IVP 4 mg Q6H PRN Administration Nausea/Vomiting Saccharomyces Boulardii 250 mg 12/23/20 09:00 12/23/20 08:30 Saccharomyces Boulardii 250 Mg Cap PO 250 mg DAILY EDDIE Administration Sodium Chloride 10 ml 12/21/20 09:00 12/23/20 20:37 Flush - Normal Saline 10 Ml Syringe IVF 10 ml Q12HR EDDIE Administration Hospitalist Exam Vitals: Vital Signs (12 hours) Temp Pulse Resp BP Pulse Ox 12/23/20 20:30 98.9 F 99 18 125/70 98 12/23/20 20:00 98 Weight Admit Weight 284 lb Weight 283 lb 15.286 oz General Appearance: awake alert Neck: supple, no JVD Heart: no gallops, no rubs Respiratory: no wheezes, no rales Gastrointestinal: soft, non-distended Extremities: no clubbing Extremities - other findings: Foot dressing Neurological: no new deficit Musculoskeletal: generalized weakness Psychiatric: A&O x 3 Hosp A/P - Plan DVT proph w/lovenox Severe sepsis due to severe necrotizing infection of the left foot due to group B strep and enterococcus s/p debridement 2/2 Diabetic ketoacidosis on admissionRequiring insulin drip Acute kidney injury Obesity with a BMI 37.5 Hyponatremia/hyperkalemia Chronic anemia suspected due to nutritional deficiency Plan: Patient will need IV Rocephin along with Flagyl until 30 January. PICC line will be placed. Continue wound care. WBC counts improving. Renal function better. Recheck labs in a.m. Change IV fluid to 1/2 NS with 20 meq potassium. Continue other medications as above. Continue wound care. Continue NPH at current dose. Change sliding scale to moderate. 2/3 Vancomycin and Zosyn discontinued per infectious disease. Patient started on ceftriaxone and Flagyl. Continue IV hydration. Start NPH. Change sliding scale to aggressive. Blood sugar checks q4 hourly. Recheck labs in a.m. continue wound care/wound VAC. General surgery and infectious disease input appreciated. Continue diabetic diet. Physical therapy.
[2020-12-24] MEDS: HumaLOG 300 UNITS/3 ML VIAL SC PRN ×5 (05:00→20:18)
[2020-12-24] MEDS: metroNIDAZOLE 500 MG in Premix Bag 1 BAG IVPB SCH ×3 (05:07→20:17)
[2020-12-24] MEDS: Morphine 2 MG/ML VIAL SLOW IVP PRN ×4 (05:08→20:13)
[2020-12-24] MEDS: 1/2 NS w/KCL 20 mEq 1,000 ML IV SCH ×3 (05:08→20:17)
[2020-12-24 06:13] LABS: Anion Gap 11 mmol/L (10-20); BUN (Urea Nitrogen) 19 mg/dL (8.4-25.7); Calc. Creatinine Clearance 173 mL/min (70-130); Calcium 7.8 mg/dL (7.8-10.44); Carbon Dioxide 21 mmol/L (22-29); Chloride 108 mmol/L (98-107); Glucose 197 mg/dL (70-105); Potassium 4.1 mmol/L (3.5-5.1); Sodium 136 mmol/L (136-145)
[2020-12-24 06:50] LABS: Band 13 % (5-11); Hemoglobin 8.1 g/dL (14.0-18.0); Lymphocytes 27 % (21-51); MDiff Complete? YES; Mean Corpuscular HGB CONC 31.8 g/dL (32.0-36.0); Mean Corpuscular Hemoglobin 28.8 pg (27.0-31.0); Mean Corpuscular Volume 90.6 fL (78.0-98.0); Mean Platelet Volume 7.8 fL (7.4-10.4); Metamyelocyte 3 % (0-0); Monocytes 11 % (0-10); Myelocyte 1 % (0-0); Neutrophil 45 % (42-75); Platelet Count 273 thou/uL (130-400); Platelet Morphology Comment Appears Adequate; RBC Distribution Width 10.9 % (11.5-14.5); White Blood Cell (WBC) Count 15.5 thou/uL (4.8-10.8)
[2020-12-24] MEDS: guaiFENesin ER 600 MG TAB PO SCH ×2 (08:20→20:16)
[2020-12-24] MEDS: NPH, Human Insulin Isophane 300 UNIT/3 ML VIAL SC SCH ×2 (08:20→20:17)
[2020-12-24] MEDS: Saccharomyces boulardii 250 MG CAP PO SCH (08:20)
[2020-12-24] MEDS: Heparin 5,000 UNITS/ML VIAL SC SCH ×3 (08:20→20:16)
--- NOTE | 2020-12-24 14:32 | SPC ---
Left upper extremity PICC placement sonographic guided HISTORY: Foot infection. FINDINGS: After explaining the procedure and answering all questions, left upper extremity was preppe d and draped in usual sterile fashion. Sterile technique, buffered local anesthesia, sonographic guidance, and a 22-gauge needle were used t o carefully access the left basilic vein. Standard technique was used to place the tip of a 5 [place] single lumen PICC so that the tip lies at the level of the right atrium. The catheter was flushed and secured externally. Patient tolerated the procedure well and was returne d in unchanged condition. IMPRESSION : Left upper extremity PICC is ready for use.
[2020-12-24] MEDS: cefTRIAXone\\ROCEPHIN 2 GM in Sodium Chloride 0.9% 100 ML IVPB SCH (17:00)
--- NOTE | 2020-12-24 17:54 | PRG ---
DATE OF SERVICE: 12/24/2020 SUBJECTIVE: Mr. Metzger was seen today and is doing well. His foot looks good. There is no active infection. There is treated with white foam with a VAC. His wound is granulating and looks good overall. The patient is ambulating with Physical Therapy. Weightbearing as tolerated. He has been seen by Dr. Larson and currently is on metronidazole and ceftriaxone. OBJECTIVE: VITAL SIGNS: He remains afebrile, temperature 99.2 degrees, blood pressure 176/99. LUNGS: Clear to auscultation. CARDIAC: Regular rate and rhythm without murmur or gallop. ABDOMEN: Soft, nontender. LABORATORY DATA: White count 15, down from 27,000. Hemoglobin 8.1. Basic metabolic profile is normal. ASSESSMENT AND PLAN: Severe necrotizing infection, foot. Continue wound care and antibiotics. The patient has had a PICC line placed, and outpatient intravenous antibiotics will be arranged. From my standpoint, the patient can be discharged home with a wound VAC at anytime. He would benefit from mental health case manager consultation regarding disability, supportive services, considering his lack of insurance, lack of ability to work, needing financial assistance. He should follow up in my office in [address] Boucher is covering on the weekend. I will see him on Sunday if he is still here. Otherwise, he can be discharged home when outpatient arrangements are made for wound VAC and antibiotics. Job ID: [id number]
[2020-12-24] MEDS: Benzonatate 100 MG CAP PO PRN (20:13)
--- NOTE | 2020-12-24 23:06 | PDOC.HOSPP ---
- Subjective Encounter Date: 12/24/20 Encounter Time: 13:45 Subjective: Patient seen and examined for diabetic foot infection. Denies any new complaints. Pain controlled. Wound was evaluated by general surgery earlier today. - Objective Vital Signs & Weight: Vital Signs (12 hours) Temp Pulse Resp BP BP Pulse Ox 12/24/20 20:00 99.1 F 95 18 152/78 H 96 12/24/20 17:10 99.2 F 90 20 176/99 H 98 12/24/20 12:00 98.0 F 92 20 157/95 H 99 Weight Admit Weight 284 lb Weight 283 lb 15.286 oz I&O: 12/23/20 12/24/20 12/25/20 06:59 06:59 06:59 Intake Total 4200 2175 Output Total 2100 200 Balance 2099 1974 Result Diagrams: 12/24/20 05:30 12/25/20 05:43 Additional Labs: Accuchecks 12/24/20 12/24/20 12/24/20 20:11 16:43 12:12 POC Glucose 263 H 290 H 206 H 12/24/20 12/23/20 04:49 23:54 POC Glucose 176 H 254 H Hospitalist ROS - Review of Systems Cardiovascular: denies: chest pain, palpitations, orthopnea, paroxysmal noc. dyspnea, edema, light headedness, other Gastrointestinal: denies: nausea, vomiting, abdominal pain, diarrhea, constipation, melena, hematochezia, other - Medication Medications: Active Medications Generic Name Dose Route Start Last Admin Trade Name Freq PRN Reason Stop Dose Admin Benzonatate 100 mg 12/21/20 21:06 12/22/20 21:21 Benzonatate 100 Mg Cap PO 100 mg Q6H PRN Administration Cough Guaifenesin 600 mg 12/23/20 21:00 12/24/20 20:16 Guaifenesin Er 600 Mg Tab PO 600 mg Q12HR EDDIE Administration Heparin Sodium (Porcine) 5,000 units 12/21/20 09:00 12/24/20 20:16 Heparin 5,000 Units/Ml Vial SC 5,000 units TID EDDIE Administration Ceftriaxone Sodium 2 gm/ 100 mls @ 200 mls/hr 12/22/20 18:00 12/24/20 17:00 Sodium Chloride IVPB 100 mls Q24HR EDDIE Administration Metronidazole 500 mg/ Device 100 mls @ 100 mls/hr 12/22/20 22:00 12/24/20 20:17 IVPB 100 mls Q8HR EDDIE Administration Potassium Chloride/Sodium Chloride 1,000 mls @ 125 mls/hr 12/23/20 09:00 12/24/20 20:17 1/2 Ns W/Kcl 20 Meq IV 1,000 mls .Q8H EDDIE Administration Insulin Human Lispro 0 units 12/22/20 11:23 12/24/20 20:18 Humalog 300 Units/3 Ml Vial SC 3 unit .BEDTIME SLIDING SC PRN Administration Bedtime Correctional Scale Insulin Human Lispro 0 units 12/23/20 17:17 12/24/20 16:59 Humalog 300 Units/3 Ml Vial SC 6 unit .MODERATE SLIDING SC PRN Administration Moderate Correctional Scale Insulin Human NPH 25 unit 12/22/20 21:00 12/24/20 20:17 Nph, Human Insulin Isophane 300 Unit/3 Ml Vial SC 25 units BID EDDIE Administration Morphine Sulfate 2 mg 12/21/20 13:29 12/24/20 20:13 Morphine 2 Mg/Ml Vial SLOW IVP 2 mg Q4H PRN Administration Pain Ondansetron HCl 4 mg 12/20/20 23:49 12/21/20 10:46 Ondansetron Pf 4 Mg/2 Ml Vial IVP 4 mg Q6H PRN Administration Nausea/Vomiting Saccharomyces Boulardii 250 mg 12/23/20 09:00 12/24/20 08:20 Saccharomyces Boulardii 250 Mg Cap PO 250 mg DAILY EDDIE Administration Sodium Chloride 10 ml 12/21/20 09:00 12/24/20 20:17 Flush - Normal Saline 10 Ml Syringe IVF 10 ml Q12HR EDDIE Administration Hospitalist Exam Vitals: Vital Signs (12 hours) Temp Pulse Resp BP BP Pulse Ox 12/24/20 20:00 99.1 F 95 18 152/78 H 96 12/24/20 17:10 99.2 F 90 20 176/99 H 98 12/24/20 12:00 98.0 F 92 20 157/95 H 99 Weight Admit Weight 284 lb Weight 283 lb 15.286 oz General Appearance: NAD Heart: RRR, no gallops Respiratory: no wheezes, no ronchi Gastrointestinal: soft, non-tender, normal bowel sounds Extremities: no cyanosis Neurological: no new deficit Hosp A/P - Plan DVT proph w/lovenox Severe sepsis due to severe necrotizing infection of the left foot due to group B strep and enterococcus s/p debridement 2/2 Diabetic ketoacidosis on admissionRequiring insulin drip Acute kidney injury Obesity with a BMI 37.5 Hyponatremia/hyperkalemia Chronic anemia suspected due to nutritional deficiency Plan: Continue current antibioticsIV Rocephin along with Flagyl until 30 January. PICC line placed. Continue wound care. Will reduce IV fluids. Continue current dose of NPH with sliding scale. A.m. labs. Continue other medications as above.
[2020-12-25] MEDS: 1/2 NS w/KCL 20 mEq 1,000 ML IV SCH (05:21)
[2020-12-25] MEDS: metroNIDAZOLE 500 MG in Premix Bag 1 BAG IVPB SCH ×3 (05:21→21:23)
[2020-12-25] MEDS: HumaLOG 300 UNITS/3 ML VIAL SC PRN ×3 (05:22→17:39)
[2020-12-25] MEDS: Morphine 2 MG/ML VIAL SLOW IVP PRN ×2 (05:29→18:50)
[2020-12-25] MEDS: Benzonatate 100 MG CAP PO PRN ×3 (05:29→21:23)
[2020-12-25 06:17] LABS: Anion Gap 9 mmol/L (10-20); BUN (Urea Nitrogen) 13 mg/dL (8.4-25.7); Calc. Creatinine Clearance 167 mL/min (70-130); Calcium 8.1 mg/dL (7.8-10.44); Carbon Dioxide 24 mmol/L (22-29); Chloride 106 mmol/L (98-107); Glucose 252 mg/dL (70-105); Potassium 4.5 mmol/L (3.5-5.1); Sodium 134 mmol/L (136-145)
[2020-12-25] MEDS: guaiFENesin ER 600 MG TAB PO SCH ×3 (07:34→21:23)
[2020-12-25] MEDS: NPH, Human Insulin Isophane 300 UNIT/3 ML VIAL SC SCH ×2 (09:04→21:24)
[2020-12-25] MEDS: Heparin 5,000 UNITS/ML VIAL SC SCH ×3 (09:05→21:23)
[2020-12-25] MEDS: Saccharomyces boulardii 250 MG CAP PO SCH (09:05)
[2020-12-25] MEDS ORDERED: 1/2 NS w/KCL 20 mEq 1,000 ML IV SCH ×2 (09:34→18:52)
[2020-12-25] MEDS: Ondansetron PF 4 MG/2 ML Vial IVP PRN (12:12)
[2020-12-25] MEDS: cefTRIAXone\\ROCEPHIN 2 GM in Sodium Chloride 0.9% 100 ML IVPB SCH (17:39)
--- NOTE | 2020-12-25 18:52 | PDOC.HOSPP ---
- Subjective Encounter Date: 12/25/20 Encounter Time: 12:00 Subjective: Patient seen and examined for sepsis with DKA. Pain controlled. Low-grade fever. Denies any other complaints - Objective Vital Signs & Weight: Vital Signs (12 hours) Temp Pulse Resp BP Pulse Ox 12/25/20 09:16 100.0 F H 91 20 159/88 H 96 12/25/20 08:00 96 Weight Admit Weight 284 lb Weight 283 lb 15.286 oz I&O: 12/24/20 12/25/20 12/26/20 06:59 06:59 06:59 Intake Total 2174 2019 Output Total 200 Balance 1974 2019 Result Diagrams: 12/24/20 05:30 12/25/20 05:43 Additional Labs: Accuchecks 12/25/20 12/25/20 12/25/20 16:30 11:26 05:06 POC Glucose 188 H 175 H 253 H 12/25/20 12/24/20 00:28 20:11 POC Glucose 209 H 263 H Reviewed Abnormal Lab Results - Last 48 hrs 12/24/20 05:30: WBC 15.5 H, RBC 2.80 L, Hgb 8.1 L, Hct 25.4 L, MCHC 31.8 L, RDW 10.9 L, Band Neuts % (Manual) 13 H, Monocytes % (Manual) 11 H, Myelocytes % 1 H 12/24/20 05:30: Chloride 108 H, Carbon Dioxide 21 L 12/25/20 05:43: Sodium 134 L, Anion Gap 9 L Microbiology - Entire Visit 12/21/20 18:11 Foot - Abscess Bacterial Culture - Preliminary Streptococcus agalactiae Gp. B 12/21/20 18:11 Foot - Abscess Anaerobic Culture - Preliminary 12/21/20 16:33 Foot Bacterial Culture - Preliminary Streptococcus agalactiae Gp. B 12/20/20 20:41 Foot - Pending Bacterial Culture - Final Enterococcus faecalis Streptococcus agalactiae Gp. B 12/20/20 20:41 Venous blood - Right Arm Blood Culture - Preliminary NO GROWTH AT 48 HOURS 12/20/20 20:53 Venous blood - Left Arm Blood Culture - Preliminary NO GROWTH AT 48 HOURS Hospitalist ROS - Review of Systems Cardiovascular: denies: chest pain, palpitations, orthopnea, paroxysmal noc. dyspnea, edema, light headedness, other Gastrointestinal: denies: nausea, vomiting, abdominal pain, diarrhea, constipation, melena, hematochezia, other - Medication Medications: Active Medications Generic Name Dose Route Start Last Admin Trade Name Ernieq PRN Reason Stop Dose Admin Benzonatate 100 mg 12/21/20 21:06 12/25/20 14:54 Benzonatate 100 Mg Cap PO 100 mg Q6H PRN Administration Cough Guaifenesin 600 mg 12/23/20 21:00 12/25/20 09:05 Guaifenesin Er 600 Mg Tab PO Not Given Q12HR EDDIE Heparin Sodium (Porcine) 5,000 units 12/21/20 09:00 12/25/20 14:54 Heparin 5,000 Units/Ml Vial SC 5,000 units TID EDDIE Administration Ceftriaxone Sodium 2 gm/ 100 mls @ 200 mls/hr 12/22/20 18:00 12/25/20 17:39 Sodium Chloride IVPB 100 mls Q24HR EDDIE Administration Metronidazole 500 mg/ Device 100 mls @ 100 mls/hr 12/22/20 22:00 12/25/20 12:26 IVPB 100 mls Q8HR EDDIE Administration Potassium Chloride/Sodium Chloride 1,000 mls @ 75 mls/hr 12/25/20 09:34 12/25/20 11:10 1/2 Ns W/Kcl 20 Meq IV 1,000 mls .[id number] EDDIE Administration Insulin Human Lispro 0 units 12/22/20 11:23 12/24/20 20:18 Humalog 300 Units/3 Ml Vial SC 3 unit .BEDTIME SLIDING SC PRN Administration Bedtime Correctional Scale Insulin Human Lispro 0 units 12/23/20 17:17 12/25/20 17:39 Humalog 300 Units/3 Ml Vial SC 2 unit .MODERATE SLIDING SC PRN Administration Moderate Correctional Scale Insulin Human NPH 25 unit 12/22/20 21:00 12/25/20 09:04 Nph, Human Insulin Isophane 300 Unit/3 Ml Vial SC 25 units BID EDDIE Administration Morphine Sulfate 2 mg 12/21/20 13:29 12/25/20 05:29 Morphine 2 Mg/Ml Vial SLOW IVP 2 mg Q4H PRN Administration Pain Ondansetron HCl 4 mg 12/20/20 23:49 12/25/20 12:12 Ondansetron Pf 4 Mg/2 Ml Vial IVP 4 mg Q6H PRN Administration Nausea/Vomiting Saccharomyces Boulardii 250 mg 12/23/20 09:00 12/25/20 09:05 Saccharomyces Boulardii 250 Mg Cap PO 250 mg DAILY EDDIE Administration Sodium Chloride 10 ml 12/21/20 09:00 12/25/20 09:05 Flush - Normal Saline 10 Ml Syringe IVF 10 ml Q12HR EDDIE Administration Hospitalist Exam Vitals: Vital Signs (12 hours) Temp Pulse Resp BP Pulse Ox 12/25/20 09:16 100.0 F H 91 20 159/88 H 96 12/25/20 08:00 96 Weight Admit Weight 284 lb Weight 283 lb 15.286 oz General Appearance: awake alert Neck: supple, no JVD Heart: RRR, no gallops Respiratory: no wheezes, no ronchi Gastrointestinal: soft, non-distended, normal bowel sounds Extremities: no cyanosis Extremities - other findings: Lower extremity dressing noted Hosp A/P - Plan DVT proph w/lovenox Severe sepsis due to severe necrotizing infection of the left foot due to group B strep and enterococcus s/p debridement 12/21 On Rocephin with Flagylpatient will need treatment until January 30 S/p PICC line placement on 12/24 Diabetic ketoacidosis on admission due to medication noncompliance Status post insulin drip Improved Will reduce IV fluid to KVO Diabetes mellitus type 2uncontrolled Started on NPH Continue sliding scale Acute kidney injury Improved Monitor labs on the daily basis Obesity with a BMI 37.5 Lifestyle modification emphasized Hyponatremia Improving Hyperkalemia Due to acidosis Improved Chronic anemia suspected due to nutritional deficiency
[2020-12-26] MEDS: Morphine 2 MG/ML VIAL SLOW IVP PRN ×2 (06:00→20:24)
[2020-12-26] MEDS: metroNIDAZOLE 500 MG in Premix Bag 1 BAG IVPB SCH ×2 (06:03→12:06)
[2020-12-26 06:34] LABS: Band 8 % (5-11); Eosinophils 2 % (0-10); Hemoglobin 6.1 g/dL (14.0-18.0); Lymphocytes 12 % (21-51); MDiff Complete? YES; Mean Corpuscular HGB CONC 30.9 g/dL (32.0-36.0); Mean Corpuscular Hemoglobin 28.6 pg (27.0-31.0); Mean Corpuscular Volume 92.7 fL (78.0-98.0); Mean Platelet Volume 7.2 fL (7.4-10.4); Metamyelocyte 10 % (0-0); Monocytes 15 % (0-10); Myelocyte 2 % (0-0); Neutrophil 51 % (42-75); Platelet Count 398 thou/uL (130-400); Platelet Morphology Comment Appears Adequate; RBC Distribution Width 12.3 % (11.5-14.5); Red Blood Cell (RBC) Count 2.11 mill/uL (4.70-6.10); White Blood Cell (WBC) Count 21.6 thou/uL (4.8-10.8)
[2020-12-26 06:39] LABS: Anion Gap 12 mmol/L (10-20); BUN (Urea Nitrogen) 15 mg/dL (8.4-25.7); Calc. Creatinine Clearance 183 mL/min (70-130); Carbon Dioxide 21 mmol/L (22-29); Chloride 105 mmol/L (98-107); Glucose 271 mg/dL (70-105); Potassium 4.8 mmol/L (3.5-5.1); Sodium 133 mmol/L (136-145)
[2020-12-26] MEDS: guaiFENesin ER 600 MG TAB PO SCH ×2 (08:36→18:58)
[2020-12-26] MEDS: Heparin 5,000 UNITS/ML VIAL SC SCH ×3 (08:37→18:58)
[2020-12-26] MEDS: Saccharomyces boulardii 250 MG CAP PO SCH (08:37)
[2020-12-26] MEDS: NPH, Human Insulin Isophane 300 UNIT/3 ML VIAL SC SCH ×2 (08:37→21:31)
[2020-12-26] MEDS: HumaLOG 300 UNITS/3 ML VIAL SC PRN ×3 (12:06→21:31)
--- NOTE | 2020-12-26 15:48 | PRG ---
DATE OF SERVICE: 12/26/2020 SUBJECTIVE: Having issues in taking his tablets, cannot swallow big tablets reportedly and apparently he vomits them back, so he is not taking his Flagyl medication and neither his pain medication. No shortness of breath. Having soft stool. No abdominal pain. Voiding without difficulty. OBJECTIVE: VITAL SIGNS: T-max 100 yesterday at 9:00 a.m., now 99.1, BP 140/71, heart rate 93. HEENT: Ocular movements conjugate. PICC line in the left upper extremity. LUNGS: Symmetric, clear breath sounds. HEART: S1, S2, regular rate. ABDOMEN: Soft, not distended. EXTREMITIES: The left foot with negative pressure dressing. LABORATORY DATA: [place] [address], hemoglobin 6.1, and platelets at 398, bands are down to 8%. Creatinine 0.86. Microbiology with group B strep and there is yeast in one of the samples, the other one with group B strep and Enterococcus faecalis. Group B strep seems to be the main pathogen here. Pathology showed ischemic ulceration, osteomyelitis with inflammatory changes extending to the soft tissue margins. 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 Interestingly, the MRI had not shown osteomyelitis, but the pathology was clear that there was osteomyelitis. The main organism here is group B strep. He is having issues with taking Flagyl. It is possible that he might have anaerobes in the mix and we will go ahead and switch him to ertapenem for discharge planning. Job ID: [id number]
[2020-12-26 18:02] LABS: Glucose 243 mg/dL (70-105)
[2020-12-26] MEDS: MEROPENEM 1 GM/50 ML 1 GM in Premix Bag 1 BAG IVPB SCH (20:30)
[2020-12-26] MEDS: Benzonatate 100 MG CAP PO PRN (20:54)
[2020-12-26 21:26] LABS: Glucose 324 mg/dL (70-105)
--- NOTE | 2020-12-26 23:31 | PDOC.HOSPP ---
- Subjective Encounter Date: 12/26/20 Encounter Time: 11:30 Subjective: Patient seen and examined for diabetic foot infection requiring surgical intervention. Denies any new complaints. No nausea or vomiting. Pain controlled. - Objective Vital Signs & Weight: Vital Signs (12 hours) Temp Pulse Resp BP Pulse Ox 12/26/20 22:01 98.8 F 12/26/20 19:47 99.8 F H 92 18 131/81 97 12/26/20 12:49 99.1 F 93 20 140/71 97 Weight Admit Weight 284 lb Weight 283 lb 15.286 oz I&O: 12/25/20 12/26/20 12/27/20 06:59 06:59 06:59 Intake Total 2019 Balance 2019 Result Diagrams: 12/26/20 06:00 12/26/20 21:06 Additional Labs: Accuchecks 12/26/20 12/26/20 11:18 04:54 POC Glucose 267 H 241 H Hospitalist ROS - Review of Systems Respiratory: denies: cough, dry, shortness of breath, hemoptysis, SOB with excertion, pleuritic pain, sputum, wheezing, other Cardiovascular: denies: chest pain, palpitations, orthopnea, paroxysmal noc. dyspnea, edema, light headedness, other - Medication Medications: Active Medications Generic Name Dose Route Start Last Admin Trade Name Freq PRN Reason Stop Dose Admin Benzonatate 100 mg 12/21/20 21:06 12/26/20 20:54 Benzonatate 100 Mg Cap PO 100 mg Q6H PRN Administration Cough Guaifenesin 600 mg 12/23/20 21:00 12/26/20 18:58 Guaifenesin Er 600 Mg Tab PO Not Given Q12HR EDDIE Heparin Sodium (Porcine) 5,000 units 12/21/20 09:00 12/26/20 18:58 Heparin 5,000 Units/Ml Vial SC Not Given TID EDDIE Meropenem 1 gm/ Device 50 mls @ 100 mls/hr 12/26/20 22:00 12/26/20 20:30 IVPB 50 mls Q8HR EDDIE Administration Insulin Human Lispro 0 units 12/22/20 11:23 12/26/20 21:31 Humalog 300 Units/3 Ml Vial SC 4 unit .BEDTIME SLIDING SC PRN Administration Bedtime Correctional Scale Insulin Human Lispro 0 units 12/23/20 17:17 12/26/20 18:04 Humalog 300 Units/3 Ml Vial SC 4 unit .MODERATE SLIDING SC PRN Administration Moderate Correctional Scale Insulin Human NPH 25 unit 12/22/20 21:00 12/26/20 21:31 Nph, Human Insulin Isophane 300 Unit/3 Ml Vial SC 25 units BID EDDIE Administration Morphine Sulfate 2 mg 12/21/20 13:29 12/26/20 20:24 Morphine 2 Mg/Ml Vial SLOW IVP 2 mg Q4H PRN Administration Pain Ondansetron HCl 4 mg 12/20/20 23:49 12/25/20 12:12 Ondansetron Pf 4 Mg/2 Ml Vial IVP 4 mg Q6H PRN Administration Nausea/Vomiting Saccharomyces Boulardii 250 mg 12/23/20 09:00 12/26/20 08:37 Saccharomyces Boulardii 250 Mg Cap PO 250 mg DAILY EDDIE Administration Sodium Chloride 10 ml 12/21/20 09:00 12/26/20 20:30 Flush - Normal Saline 10 Ml Syringe IVF 10 ml Q12HR EDDIE Administration Hospitalist Exam Vitals: Vital Signs (12 hours) Temp Pulse Resp BP Pulse Ox 12/26/20 22:01 98.8 F 12/26/20 19:47 99.8 F H 92 18 131/81 97 12/26/20 12:49 99.1 F 93 20 140/71 97 Weight Admit Weight 284 lb Weight 283 lb 15.286 oz General Appearance: awake alert Neck: supple, no JVD Heart: RRR, no gallops Respiratory: no wheezes, rales, rhonchi Gastrointestinal: soft, non-tender, normal bowel sounds Extremities: no cyanosis Psychiatric: A&O x 3 Hosp A/P - Plan DVT proph w/SCDs 50-year-old male with diabetes mellitus type IIuncontrolled presented to the emergency room on 12/20 with left foot swelling. Initial vital signs in the emergency room showed temperature 101.5 with pulse rate of 105, respiration 20 and blood pressure 101/67. He underwent amputation of the left 1st, 2nd and 3rd toes with metatarsal with extensive debridement on 12/21. Severe sepsis due to severe necrotizing infection of the left foot due to group B strep and enterococcus s/p debridement 12/21 On IV antibiotics per ID S/p PICC line placement on 12/24 eligibility manager consulted Diabetic ketoacidosis on admission due to medication noncompliance s/p insulin drip Improved DC IV fluids Diabetes mellitus type 2uncontrolled ContinueNPH Continue sliding scale Acute kidney injury Improved Monitor labs on the daily basis Obesity with a BMI 37.5 Lifestyle modification emphasized Hyponatremia Improving Hyperkalemia Due to acidosis Improved Chronic anemia suspected due to nutritional deficiency
[2020-12-27] MEDS: MEROPENEM 1 GM/50 ML 1 GM in Premix Bag 1 BAG IVPB SCH ×2 (05:33→13:11)
[2020-12-27 06:23] LABS: Anion Gap 12 mmol/L (10-20); BUN (Urea Nitrogen) 15 mg/dL (8.4-25.7); Calc. Creatinine Clearance 161 mL/min (70-130); Carbon Dioxide 21 mmol/L (22-29); Chloride 105 mmol/L (98-107); Glucose 271 mg/dL (70-105); Potassium 4.7 mmol/L (3.5-5.1); Sodium 133 mmol/L (136-145)
[2020-12-27 06:30] LABS: Band 2 % (5-11); Eosinophils 1 % (0-10); Hypochromia SLIGHT = 6-15 cells (100X) (0-5/hpf); Lymphocytes 22 % (21-51); MDiff Complete? YES; Mean Corpuscular HGB CONC 32.3 g/dL (32.0-36.0); Mean Corpuscular Hemoglobin 30.7 pg (27.0-31.0); Mean Corpuscular Volume 94.8 fL (78.0-98.0); Mean Platelet Volume 7.3 fL (7.4-10.4); Metamyelocyte 6 % (0-0); Monocytes 7 % (0-10); Neutrophil 62 % (42-75); Nucleated RBC 2 % (0); Platelet Count 415 thou/uL (130-400); Platelet Morphology Comment Appears Increased; Polychromasia SLIGHT = 2-3 cells (100X) (0-2/hpf); RBC Distribution Width 14.2 % (11.5-14.5); Red Blood Cell (RBC) Count 1.62 mill/uL (4.70-6.10); White Blood Cell (WBC) Count 24.7 thou/uL (4.8-10.8)
[2020-12-27] MEDS: Saccharomyces boulardii 250 MG CAP PO SCH (08:04)
[2020-12-27] MEDS: NPH, Human Insulin Isophane 300 UNIT/3 ML VIAL SC SCH ×2 (08:05→21:25)
[2020-12-27] MEDS: guaiFENesin ER 600 MG TAB PO SCH ×2 (08:05→19:28)
[2020-12-27] MEDS: Heparin 5,000 UNITS/ML VIAL SC SCH (08:11)
[2020-12-27] MEDS: Morphine 2 MG/ML VIAL SLOW IVP PRN (08:20)
[2020-12-27] MEDS ORDERED: Acetaminophen 325 MG TAB PO PRN (08:35)
[2020-12-27 10:01] LABS: Mean Corpuscular HGB CONC 32.3 g/dL (32.0-36.0); Mean Corpuscular Hemoglobin 30.6 pg (27.0-31.0); Mean Corpuscular Volume 94.7 fL (78.0-98.0); Mean Platelet Volume 7.2 fL (7.4-10.4); Platelet Count 434 thou/uL (130-400); Red Blood Cell (RBC) Count 1.63 mill/uL (4.70-6.10); White Blood Cell (WBC) Count 22.2 thou/uL (4.8-10.8)
[2020-12-27 11:13] LABS: Band 15 % (5-11); Eosinophils 1 % (0-10); Lymphocytes 19 % (21-51); MDiff Complete? YES; Metamyelocyte 5 % (0-0); Monocytes 10 % (0-10); Myelocyte 6 % (0-0); Neutrophil 44 % (42-75); Nucleated RBC 1 % (0); Platelet Morphology Comment Appears Increased; Polychromasia MODERATE = 3-4 cells (100X) (0-2/hpf)
[2020-12-27 12:35] LABS: Glucose 237 mg/dL (70-105)
[2020-12-27] MEDS ORDERED: traMADol HCl 50 MG TAB PO PRN (13:18)
[2020-12-27] MEDS ORDERED: Acetaminophen 500 MG TAB PO PRN (13:18)
--- NOTE | 2020-12-27 13:38 | PRG ---
DATE OF SERVICE: 12/27/2020 SUBJECTIVE: Jordy Metzger is doing well today. I viewed his wound with Wound Care. The wound looks very good. It is granulating. There is no active cellulitis or infection. There is tracking plantar, which is becoming less. Wound Care is placing white foam. 102.1 degrees, fever. White count 24.7, hemoglobin 5. Basic metabolic profile normal. Culture, Streptococcus, yeast, wound culture. Blood cultures negative. ASSESSMENT AND PLAN: Fevers, uncertain etiology. The foot looks good. There is no evidence of infection extending proximally. The patient is undergoing discharge planning. The wound VAC has been applied, but of course, he cannot go home with a fever until that is resolved. Job ID: [id number]
--- NOTE | 2020-12-27 14:02 | PDOC.HOSPP ---
- Subjective Encounter Date: 12/27/20 Encounter Time: 11:30 Subjective: Patient appears well he had a temp this morning; talk to the RN due to his low hemoglobin; be good doing 2 units of transfusion today - Objective Vital Signs & Weight: Vital Signs (12 hours) Temp Pulse Resp BP Pulse Ox 12/27/20 13:23 99.8 F H 12/27/20 11:37 102.5 F H 12/27/20 09:17 99.2 F 12/27/20 08:00 98 12/27/20 07:38 102.1 F H 100 16 151/94 H 98 Weight Admit Weight 284 lb Weight 283 lb 15.286 oz Result Diagrams: 12/27/20 09:27 12/27/20 15:56 Hospitalist ROS - Medication Medications: Active Medications Generic Name Dose Route Start Last Admin Trade Name Freq PRN Reason Stop Dose Admin Benzonatate 100 mg 12/21/20 21:06 12/26/20 20:54 Benzonatate 100 Mg Cap PO 100 mg Q6H PRN Administration Cough Guaifenesin 600 mg 12/23/20 21:00 12/27/20 08:05 Guaifenesin Er 600 Mg Tab PO Not Given Q12HR EDDIE Meropenem 1 gm/ Device 50 mls @ 100 mls/hr 12/26/20 22:00 12/27/20 13:11 IVPB 50 mls Q8HR EDDIE Administration Insulin Human Lispro 0 units 12/22/20 11:23 12/26/20 21:31 Humalog 300 Units/3 Ml Vial SC 4 unit .BEDTIME SLIDING SC PRN Administration Bedtime Correctional Scale Insulin Human Lispro 0 units 12/23/20 17:17 12/26/20 18:04 Humalog 300 Units/3 Ml Vial SC 4 unit .MODERATE SLIDING SC PRN Administration Moderate Correctional Scale Insulin Human NPH 25 unit 12/22/20 21:00 12/27/20 08:05 Nph, Human Insulin Isophane 300 Unit/3 Ml Vial SC 25 units BID EDDIE Administration Morphine Sulfate 2 mg 12/21/20 13:29 12/27/20 08:20 Morphine 2 Mg/Ml Vial SLOW IVP 2 mg Q4H PRN Administration Severe Pain (7-10) Ondansetron HCl 4 mg 12/20/20 23:49 12/25/20 12:12 Ondansetron Pf 4 Mg/2 Ml Vial IVP 4 mg Q6H PRN Administration Nausea/Vomiting Saccharomyces Boulardii 250 mg 12/23/20 09:00 12/27/20 08:04 Saccharomyces Boulardii 250 Mg Cap PO Not Given DAILY EDDIE Sodium Chloride 10 ml 12/21/20 09:00 12/27/20 08:13 Flush - Normal Saline 10 Ml Syringe IVF 10 ml Q12HR EDDIE Administration Hospitalist Exam Vitals: Vital Signs (12 hours) Temp Pulse Resp BP Pulse Ox 12/27/20 13:23 99.8 F H 12/27/20 11:37 102.5 F H 12/27/20 09:17 99.2 F 12/27/20 08:00 98 12/27/20 07:38 102.1 F H 100 16 151/94 H 98 Weight Admit Weight 284 lb Weight 283 lb 15.286 oz General Appearance: NAD, awake alert Eye: PERRL ENT: normocephalic atraumatic Neck: supple Heart: RRR, normal peripheral pulses Respiratory: CTAB, normal chest expansion Gastrointestinal: soft, normal bowel sounds Neurological: cranial nerve grossly intact, normal sensation to touch, no focal deficits Psychiatric: normal affect, normal behavior, A&O x 3 Hosp A/P - Plan 50-year-old male with diabetes mellitus type IIuncontrolled presented to the emergency room on 12/20 with left foot swelling. Initial vital signs in the emergency room showed temperature 101.5 with pulse rate of 105, respiration 20 and blood pressure 101/67. He underwent amputation of the left 1st, 2nd and 3rd toes with metatarsal with extensive debridement on 12/21. Severe sepsis due to severe necrotizing infection of the left foot due to group B strep and enterococcus s/p debridement 12/21 On IV antibiotics per ID S/p PICC line placement on 12/24 international operations manager consulted Diabetic ketoacidosis on admission due to medication noncompliance s/p insulin drip Improved DC IV fluids Diabetes mellitus type 2uncontrolled NPH and SSI Acute kidney injury Improved Obesity with a BMI 37.5 Lifestyle modification emphasized Hyponatremia Improved Hyperkalemia -resolved Acute blood loss anemia -Hemoglobin consistently dropping-93 on December 21 and today it is at 5. -She has no history of peptic ulcer disease or hemorrhoids or diverticulosis artery AVM. - is not on aspirin or NSAID at home he is not on any blood thinner -He has not had any endoscopy study recently including colonoscopy -not clear source of etiology [amputation is on second with minimal blood loss] -Check occult blood test. -Type and cross and 2 units of blood transfusion -Iron study panel -Protonix IV twice daily --GI consult in the morning -Now patient has episodes of fever--repeat blood cultures done -Elevated white count and fever=-- am concerned to start him on transfusion -We will give him Protonix and Benadryl as well as Tylenol prior to transfusion
[2020-12-27] MEDS: Gabapentin 300 MG CAP PO SCH ×2 (15:01→19:28)
[2020-12-27] MEDS: Ondansetron PF 4 MG/2 ML Vial IVP PRN (15:02)
[2020-12-27 15:27] LABS: Iron 98 ug/dL (65-175); Iron Binding Capacity, Total 133 mcg/dL (261-462)
[2020-12-27] MEDS ORDERED: diphenhydrAMINE 25 MG CAP PO PRN (16:18)
[2020-12-27 16:24] LABS: Glucose 327 mg/dL (70-105)
--- NOTE | 2020-12-27 17:28 | PDOC.BPN ---
- Brief Progress Note likely drug induced intravascular hemolysis- lab tests sent - vanc is added. could be flagyl vs.. ceftriaxone vs.. merum. Dr. Larson aware of it and we go ahead and transfuse blood.
[2020-12-27] MEDS ORDERED: Ibuprofen 600 MG TAB PO PRN (17:30)
--- NOTE | 2020-12-27 17:45 | PRG ---
DATE OF SERVICE: 12/27/2020 SUBJECTIVE: Mr. Metzger is a little bit diaphoretic, having fevers nonstop since this morning actually. He noticed that the color of his urine is dark for some reason. Denies any dysuria. No dyspnea. No abdominal pain. The foot appearance is great according to Dr. Arias and Wound Care. OBJECTIVE: VITAL SIGNS: His O2 saturations are 98 and heart rate is 92 to 100. HEENT: Ocular movements conjugate. Oral cavity normal. LUNGS: Symmetric, clear breath sounds. HEART: S1 and S2. Regular rate. ABDOMEN: Soft, not distended. No bladder distention. EXTREMITIES: No joint inflammatory activity. Left foot with negative pressure dressing. LABORATORY DATA: White cell count is 24,000, hemoglobin is down to 5, platelets are up to 415, and MCV is 94.8. Noticeable increased metamyelocytes and myelocytes. The smear showed polychromasia, but no schistocytes. Creatinine 0.98 and glucose 327. Iron 98 and TIBC 133. ASSESSMENT AND DISCUSSION: 1. Type 2 diabetes. 2. Neuropathy. 3. Perforating injury to foot with necrotizing infection, status post amputation of 2nd and 3rd rays with good results in terms of the wound appearance. Group B strep seems to be the pathogen, but now he has developed marked decrease in hemoglobin, fever, change in color of urine. Main concern is with intravascular hemolysis with warm antibodies, possibly related to beta-lactam antibiotic administration. I believe the event had already started before the meropenem was prescribed, but he may have exacerbated the syndrome. We will go ahead and submit labs include haptoglobin, LDH, bilirubin, and direct antiglobulin test and transition him to vancomycin. Discontinue meropenem. Job ID: [id number]
[2020-12-27 17:50] LABS: Reticulocyte Count 13.9 % (0.5-1.5)
[2020-12-27] MEDS: HumaLOG 300 UNITS/3 ML VIAL SC PRN (17:51)
[2020-12-27 18:14] LABS: ALT (SGPT) 48 U/L (8-55); AST (SGOT) 70 U/L (5-34); Albumin 2.5 g/dL (3.5-5.0); Alkaline Phosphatase 102 U/L (40-110); Bilirubin, Direct 0.5 mg/dL (0.1-0.3); Bilirubin, Total 1.1 mg/dL (0.2-1.2); Protein, Total 6.5 g/dL (6.0-8.3)
[2020-12-27] MEDS: VANCOMYCIN 2 GRAM/400 ML BAG 2 GM in Premix Bag 1 BAG IVPB SCH (18:29)
[2020-12-27] MEDS ORDERED: Ketorolac Tromethamine 30 MG/ML VIAL ONE (19:08)
[2020-12-27] MEDS ORDERED: Ketorolac Tromethamine 30 MG/ML VIAL IVP SCH (19:30)
[2020-12-27] MEDS ORDERED: Famotidine/PF 20 mg/2ml Vial SLOW IVP SCH (21:00)
[2020-12-27] MEDS: Pantoprazole 40 MG VIAL IVP SCH (21:20)
[2020-12-27 21:24] LABS: Glucose 254 mg/dL (70-105)
[2020-12-28] MEDS: VANCOMYCIN 2 GRAM/400 ML BAG 2 GM in Premix Bag 1 BAG IVPB SCH ×2 (05:35→18:12)
[2020-12-28 05:53] LABS: Anion Gap 9 mmol/L (10-20); BUN (Urea Nitrogen) 18 mg/dL (8.4-25.7); Calc. Creatinine Clearance 120 mL/min (70-130); Calcium 7.8 mg/dL (7.8-10.44); Carbon Dioxide 25 mmol/L (22-29); Chloride 105 mmol/L (98-107); Glucose 194 mg/dL (70-105); Potassium 4.5 mmol/L (3.5-5.1); Sodium 134 mmol/L (136-145)
[2020-12-28] MEDS: Pantoprazole 40 MG VIAL IVP SCH ×2 (09:28→21:31)
[2020-12-28] MEDS: guaiFENesin ER 600 MG TAB PO SCH ×2 (09:28→21:32)
[2020-12-28] MEDS: Gabapentin 300 MG CAP PO SCH ×3 (09:28→21:32)
[2020-12-28] MEDS: Saccharomyces boulardii 250 MG CAP PO SCH (09:28)
[2020-12-28 10:01] LABS: Mean Corpuscular HGB CONC 32.9 g/dL (32.0-36.0); Mean Corpuscular Hemoglobin 30.1 pg (27.0-31.0); Mean Corpuscular Volume 91.5 fL (78.0-98.0); Mean Platelet Volume 7.1 fL (7.4-10.4); Platelet Count 434 thou/uL (130-400); RBC Distribution Width 15.4 % (11.5-14.5); Red Blood Cell (RBC) Count 1.98 mill/uL (4.70-6.10); White Blood Cell (WBC) Count 21.3 thou/uL (4.8-10.8)
[2020-12-28 10:42] LABS: ALT (SGPT) 44 U/L (8-55); AST (SGOT) 58 U/L (5-34); Albumin 2.3 g/dL (3.5-5.0); Alkaline Phosphatase 82 U/L (40-110); Bilirubin, Direct 0.4 mg/dL (0.1-0.3); Bilirubin, Total 0.8 mg/dL (0.2-1.2); Protein, Total 5.9 g/dL (6.0-8.3)
[2020-12-28] MEDS: methylPREDNISolone Sod Succ/PF 125 MG/2 ML VIAL IVP SCH (11:25)
[2020-12-28] MEDS: NPH, Human Insulin Isophane 300 UNIT/3 ML VIAL SC SCH ×2 (11:25→21:50)
[2020-12-28 12:30] LABS: Glucose 204 mg/dL (70-105)
--- NOTE | 2020-12-28 14:37 | PDOC.HOSPP ---
- Subjective Encounter Date: 12/28/20 Encounter Time: 11:10 Subjective: Patient did had episodes of fever at night. Globin improved only to 6.0 after 2 units of transfusion. Talk to the oncologist and I am starting him on IV steroid this morning. He is on moderate sliding scale insulin. - Objective Vital Signs & Weight: Vital Signs (12 hours) Temp Pulse Pulse Resp BP BP Pulse Ox 12/28/20 11:14 99.5 F 12/28/20 08:00 98 12/28/20 07:51 100.6 F H 93 18 141/82 H 98 12/28/20 04:00 98.9 F 12/28/20 03:24 101 F H 95 18 138/90 98 Weight Admit Weight 284 lb Weight 283 lb 15.286 oz I&O: 12/27/20 12/28/20 12/29/20 06:59 06:59 06:59 Intake Total 700 Balance 700 Result Diagrams: 12/28/20 09:39 12/28/20 11:58 Additional Labs: Accuchecks 12/27/20 11:36 POC Glucose 242 H Hospitalist ROS - Medication Medications: Active Medications Generic Name Dose Route Start Last Admin Trade Name Freq PRN Reason Stop Dose Admin Acetaminophen 1,000 mg 12/27/20 13:18 12/27/20 16:23 Acetaminophen 500 Mg Tab PO 1,000 mg Q6H PRN Administration Moderate to Severe Pain (6-10) Benzonatate 100 mg 12/21/20 21:06 12/26/20 20:54 Benzonatate 100 Mg Cap PO 100 mg Q6H PRN Administration Cough Gabapentin 300 mg 12/27/20 15:00 12/28/20 09:28 Gabapentin 300 Mg Cap PO Not Given TID EDDIE Guaifenesin 600 mg 12/23/20 21:00 12/28/20 09:28 Guaifenesin Er 600 Mg Tab PO Not Given Q12HR EDDIE Vancomycin HCl 2 gm/ Device 400 mls @ 200 mls/hr 12/27/20 18:00 12/28/20 05:35 IVPB 400 mls 0600,1800 EDDIE Administration Insulin Human Lispro 0 units 12/22/20 11:23 12/26/20 21:31 Humalog 300 Units/3 Ml Vial SC 4 unit .BEDTIME SLIDING SC PRN Administration Bedtime Correctional Scale Insulin Human Lispro 0 units 12/23/20 17:17 12/27/20 17:51 Humalog 300 Units/3 Ml Vial SC 8 unit .MODERATE SLIDING SC PRN Administration Moderate Correctional Scale Insulin Human NPH 25 unit 12/22/20 21:00 12/28/20 11:25 Nph, Human Insulin Isophane 300 Unit/3 Ml Vial SC 25 units BID EDDIE Administration Methylprednisolone Sodium Succinate 125 mg 12/28/20 11:00 12/28/20 11:25 Methylprednisolone Sod Succ/Pf 125 Mg/2 Ml Vial IVP 125 mg 1100 EDDIE Administration Morphine Sulfate 2 mg 12/21/20 13:29 12/27/20 08:20 Morphine 2 Mg/Ml Vial SLOW IVP 2 mg Q4H PRN Administration Severe Pain (7-10) Ondansetron HCl 4 mg 12/20/20 23:49 12/27/20 15:02 Ondansetron Pf 4 Mg/2 Ml Vial IVP 4 mg Q6H PRN Administration Nausea/Vomiting Pantoprazole Sodium 40 mg 12/27/20 21:00 12/28/20 09:28 Pantoprazole 40 Mg Vial IVP 40 mg BID EDDIE Administration Saccharomyces Boulardii 250 mg 12/23/20 09:00 12/28/20 09:28 Saccharomyces Boulardii 250 Mg Cap PO Not Given DAILY EDDIE Sodium Chloride 10 ml 12/21/20 09:00 12/28/20 09:29 Flush - Normal Saline 10 Ml Syringe IVF 10 ml Q12HR EDDIE Administration Hospitalist Exam Vitals: Vital Signs (12 hours) Temp Pulse Pulse Resp BP BP Pulse Ox 12/28/20 11:14 99.5 F 12/28/20 08:00 98 12/28/20 07:51 100.6 F H 93 18 141/82 H 98 12/28/20 04:00 98.9 F 12/28/20 03:24 101 F H 95 18 138/90 98 Weight Admit Weight 284 lb Weight 283 lb 15.286 oz General Appearance: NAD, awake alert Eye: PERRL ENT: normocephalic atraumatic Neck: supple Heart: RRR Respiratory: CTAB, normal chest expansion Gastrointestinal: soft, normal bowel sounds Neurological: cranial nerve grossly intact, no focal deficits Psychiatric: normal affect, normal behavior, A&O x 3 Hosp A/P - Plan 50-year-old male with diabetes mellitus type IIuncontrolled presented to the emergency room on 12/20 with left foot swelling. Initial vital signs in the emergency room showed temperature 101.5 with pulse rate of 105, respiration 20 and blood pressure 101/67. He underwent amputation of the left 1st, 2nd and 3rd toes with metatarsal with extensive debridement on 12/21. Severe sepsis due to severe necrotizing infection of the left foot due to group B strep and enterococcus s/p debridement 12/21 On IV antibiotics per ID S/p PICC line placement on 12/24 manager target consulted Diabetic ketoacidosis on admission due to medication noncompliance s/p insulin drip Improved DC IV fluids Diabetes mellitus type 2uncontrolled NPH and SSI Acute kidney injury Improved Obesity with a BMI 37.5 Lifestyle modification emphasized Hyponatremia Improved Hyperkalemia -resolved Acute blood loss anemia -Hemoglobin consistently dropping-93 on December 21 and today it is at 5. -She has no history of peptic ulcer disease or hemorrhoids or diverticulosis artery AVM. - is not on aspirin or NSAID at home he is not on any blood thinner -He has not had any endoscopy study recently including colonoscopy -not clear source of etiology [amputation is on second with minimal blood loss] -Check occult blood test. -Type and cross and 2 units of blood transfusion -Iron study panel -Protonix IV twice daily --GI consult in the morning -Now patient has episodes of fever--repeat blood cultures done -Elevated white count and fever=-- am concerned to start him on transfusion -We will give him Protonix and Benadryl as well as Tylenol prior to transfusion Hemolytic anemia -antibody send out labs still pending -Starting him on IV steroid at 1 mg/kg--oncology will be following with us. --We will transfuse another unit to keep the hemoglobin level above 7.
[2020-12-28] MEDS: Ondansetron PF 4 MG/2 ML Vial IVP PRN (14:57)
[2020-12-28 15:45] LABS: Bacteria/HPF None Seen HPF (None Seen); Bilirubin Negative (Negative); Blood, Urine Trace (Negative); Clarity Clear (Clear); Glucose, Urine (Dipstick) 500 mg/dL (Negative); Ketone, Urine Negative (Negative); Leukocyte Negative Leu/uL (Negative); Nitrite Negative (Negative); Protein, Urine (Dipstick) 100 mg/dL (Neg-Trace); RBC/HPF 0-3 HPF (0-3); Specific Gravity, Urine 1.031 (1.002-1.036); Squamous Epithelial 0-3 HPF (0-3); Urobilinogen Normal mg/dL (Less than 2); WBC/HPF 0-3 HPF (0-3); pH, Urine 5.5 (5.0-9.0)
--- NOTE | 2020-12-28 16:15 | PRG ---
DATE OF SERVICE: 12/28/2020 SUBJECTIVE: Jordy Metzger has had a fever to 100.6 degrees in last 24 hours and prior to that, 102. His blood cultures remain negative. Foot is growing Streptococcus and yeast. He was on meropenem, but has what appears to be a hemolytic reaction. Dr. Larson has discontinued the meropenem. The patient is complaining of some arthralgias in wrist and ankles. I saw his foot yesterday during wound care and the foot looked good. Today, he is able to dorsiflex, plantar flex his foot. There is no calf tenderness or leg tenderness. There is nothing to suggest an ascending infection from the foot. ASSESSMENT AND PLAN: Adverse reaction to the antibiotic, currently changed to vancomycin. The patient's discharge is anticipated in the near future PICC line. He should follow up with me in 2 to 3 weeks. I will see him in the next wound care change if he is still here. Job ID: [id number]
[2020-12-28 18:01] LABS: Glucose 414 mg/dL (70-105)
[2020-12-28] MEDS: HumaLOG 300 UNITS/3 ML VIAL SC PRN (18:12)
[2020-12-28 21:07] LABS: Glucose 379 mg/dL (70-105)
[2020-12-28] MEDS: Morphine 2 MG/ML VIAL SLOW IVP PRN (21:48)
--- NOTE | 2020-12-28 23:16 | CON ---
DATE OF CONSULTATION: REASON FOR CONSULT: Possible drug-induced hemolytic anemia. HISTORY OF PRESENT ILLNESS: Mr. Metzger is a 50-year-old gentleman with past medical history of diabetes, hypertension, morbid obesity, who presented to this facility with foot pain. He underwent surgical debridement and amputation of his left foot. He appeared to have a necrotizing infection with group B strep. He was started on multiple antibiotics including cefazolin, Maxipime, cefepime, ceftriaxone, clindamycin, meropenem, metronidazole, Diflucan. He also had a dose of Zosyn and vancomycin. On admission, his hemoglobin was 11.1 and six days later, it was 6.1, yesterday it dropped to 5. He had an elevated retic count of 13.9. His LDH was 619. He did have a negative Latoya test. 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 All antibiotics were stopped except vancomycin. The patient has no history of anemia or any blood disorder. No family history of sickle cell. He denies any hematochezia, epistasis, melena, hematuria. Denies any dizziness, shortness of breath. PAST MEDICAL HISTORY: 1. Diabetes mellitus 2. 2. Hypertension. 3. Morbid obesity. PAST SURGICAL HISTORY: Toe amputation, appendectomy. ALLERGIES: NO KNOWN DRUG ALLERGIES. CURRENT MEDICATIONS: 1. Vancomycin. 2. Ultram. 3. Protonix. 4. Solu-Medrol. 5. Insulin. 6. Motrin. 7. Mucinex. 8. Neurontin. 9. Benadryl. 10. Tessalon. 11. Tylenol. FAMILY HISTORY: No history of thalassemia, sickle cell anemia, or blood disorder. SOCIAL HISTORY: Single. Occasional alcohol. No smoking or illicit drug use. REVIEW OF SYSTEMS: 12-point review of systems is negative. PHYSICAL EXAMINATION: VITAL SIGNS: Temperature 99.5, pulse is 93, respiratory rate 18, BP is 141/82. He is 98% on room air. GENERAL: A well-developed, well-nourished male, in no acute distress. HEENT: Normocephalic, atraumatic. Pupils are equal and reactive to light. NECK: Supple. CV: Regular rate and rhythm. LUNGS: Clear. ABDOMEN: Obese, nontender. Bowel sounds are positive. EXTREMITIES: He has wound VAC to his left foot. NEUROLOGIC: Nonfocal. PERTINENT LABORATORY DATA AND X-RAYS: Current WBCs 21.3, hemoglobin 6, hematocrit 18.1, platelet count is 434,000. He has 44% neutrophils, 15% bands, 19% lymphocytes, 5% metamyelocytes, 6% myelocytes, 1 nucleated RBC. Retic count 13.9. Sodium 134, potassium 4.5, chloride 105, CO2 is 25, BUN is 18, creatinine 1.31, calcium 7.8, bilirubin 0.8, direct bilirubin 0.4, AST is 58, ALT is 44, alkaline phosphatase is 82, LDH is 467. Serum total protein 5.9, albumin 2.3. COVID PCR negative. 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 DISCUSSION: The patient had an abrupt drop in hemoglobin with no evidence of bleeding. He did receive beta-lactam antibiotics which maybe the cause of his anemia. His LDH is mildly elevated as well as his retic count, however, his Latoya is negative and his bilirubin is essentially normal. He does state that his urine is much darker today than it has been. We will recheck chemistry in a.m. He has been started on Solu-Medrol 1 mg/kg and his antibiotics have been stopped. Case has been discussed with Dr. Aguilar. We will continue the steroids and follow his CBC. Thank you for the consult. Job ID: [id number]
[2020-12-29 05:29] LABS: Anion Gap 7 mmol/L (10-20); BUN (Urea Nitrogen) 20 mg/dL (8.4-25.7); Calc. Creatinine Clearance 117 mL/min (70-130); Carbon Dioxide 25 mmol/L (22-29); Chloride 104 mmol/L (98-107); Glucose 390 mg/dL (70-105); Potassium 4.4 mmol/L (3.5-5.1); Sodium 132 mmol/L (136-145)
[2020-12-29 05:31] LABS: ALT (SGPT) 37 U/L (8-55); AST (SGOT) 27 U/L (5-34); Albumin 2.6 g/dL (3.5-5.0); Alkaline Phosphatase 90 U/L (40-110); Bilirubin, Direct 0.3 mg/dL (0.1-0.3); Bilirubin, Total 0.5 mg/dL (0.2-1.2); Protein, Total 6.5 g/dL (6.0-8.3)
[2020-12-29] MEDS: VANCOMYCIN 2 GRAM/400 ML BAG 2 GM in Premix Bag 1 BAG IVPB SCH ×2 (06:29→17:56)
[2020-12-29 07:44] LABS: Glucose 331 mg/dL (70-105)
[2020-12-29] MEDS: NPH, Human Insulin Isophane 300 UNIT/3 ML VIAL SC SCH ×2 (09:09→20:25)
[2020-12-29] MEDS: Pantoprazole 40 MG VIAL IVP SCH ×2 (09:10→20:22)
[2020-12-29] MEDS: Saccharomyces boulardii 250 MG CAP PO SCH (09:10)
[2020-12-29] MEDS: Gabapentin 300 MG CAP PO SCH ×4 (09:10→20:18)
[2020-12-29] MEDS: guaiFENesin ER 600 MG TAB PO SCH ×3 (09:10→20:19)
[2020-12-29] MEDS: methylPREDNISolone Sod Succ/PF 125 MG/2 ML VIAL IVP SCH (09:11)
[2020-12-29 09:58] LABS: #Basophils 0.1 thou/uL (0.0-0.2); #Eosinphils 0.1 thou/uL (0.0-0.7); #Lymphocytes 3.2 thou/uL (1.20-3.40); #Monocytes 1.4 thou/uL (0.11-0.59); #Neutrophils 11.8 thou/uL (1.40-6.50); %Basophils 0.4 % (0.0-1.0); %Eosinophils 0.6 % (0.0-10.0); %Lymphocytes 19.1 % (21.0-51.0); %Monocytes 8.5 % (0.0-10.0); %Neutrophils 71.4 % (42.0-75.0); Hemoglobin 6.8 g/dL (14.0-18.0); Mean Corpuscular Hemoglobin 30.8 pg (27.0-31.0); Mean Corpuscular Volume 93.2 fL (78.0-98.0); Mean Platelet Volume 7.2 fL (7.4-10.4); Platelet Count 413 thou/uL (130-400); RBC Distribution Width 16.2 % (11.5-14.5); Red Blood Cell (RBC) Count 2.22 mill/uL (4.70-6.10); White Blood Cell (WBC) Count 16.5 thou/uL (4.8-10.8)
[2020-12-29 11:58] LABS: Glucose 290 mg/dL (70-105)
[2020-12-29] MEDS: Morphine 2 MG/ML VIAL SLOW IVP PRN (12:00)
--- NOTE | 2020-12-29 13:22 | EKG ---
Test Reason : Blood Pressure : / mmHG Vent. Rate : 105 BPM Atrial Rate : 105 BPM P-R Int : 116 ms QRS Dur : 080 ms QT Int : 330 ms P-R-T Axes : 039 -06 004 degrees QTc Int : 436 ms Sinus tachycardia Otherwise normal ECG Confirmed by FAUSTO VO ([id number]), tape editor RANDY DUBOIS ([id number]) on 12/29/2020 1:22:19 PM Referred By: Confirmed By:FAUSTO Pearce
[2020-12-29] MEDS: HumaLOG 300 UNITS/3 ML VIAL SC PRN ×2 (13:36→17:59)
[2020-12-29] MEDS ORDERED: Dextrose 5% in Water 1,000 ML IV PRN (13:41)
[2020-12-29] MEDS ORDERED: Dextrose 50% Abboject 50 ML SYRINGE SLOW IVP PRN (13:41)
--- NOTE | 2020-12-29 13:43 | PDOC.HOSPP ---
- Subjective Encounter Date: 12/29/20 Encounter Time: 10:58 Subjective: Patient is afebrile since yesterday morning around 1100 at least for the last 24 hours. He appears much better today. His hemoglobin is 6.8. Total bili is improved. - Objective Vital Signs & Weight: Vital Signs (12 hours) Temp Pulse Resp BP BP Pulse Ox 12/29/20 11:37 98.2 F 83 16 147/83 H 95 12/29/20 07:40 97.6 F 76 16 151/84 H 98 12/29/20 04:00 97.7 F 73 18 146/81 H 97 Weight Admit Weight 284 lb Weight 283 lb 15.286 oz I&O: 12/28/20 12/29/20 12/30/20 06:59 06:59 06:59 Intake Total 187 698 3026 Output Total 800 Balance 410 257 6898 Result Diagrams: 12/29/20 09:44 12/29/20 11:31 Additional Labs: Accuchecks 12/29/20 12/28/20 04:53 19:48 POC Glucose 386 H 348 H Hospitalist ROS - Medication Medications: Active Medications Generic Name Dose Route Start Last Admin Trade Name Freq PRN Reason Stop Dose Admin Acetaminophen 1,000 mg 12/27/20 13:18 12/27/20 16:23 Acetaminophen 500 Mg Tab PO 1,000 mg Q6H PRN Administration Moderate to Severe Pain (6-10) Benzonatate 100 mg 12/21/20 21:06 12/26/20 20:54 Benzonatate 100 Mg Cap PO 100 mg Q6H PRN Administration Cough Gabapentin 300 mg 12/27/20 15:00 12/29/20 09:13 Gabapentin 300 Mg Cap PO Not Given TID EDDIE Guaifenesin 600 mg 12/23/20 21:00 12/29/20 09:14 Guaifenesin Er 600 Mg Tab PO Not Given Q12HR EDDIE Vancomycin HCl 2 gm/ Device 400 mls @ 200 mls/hr 12/27/20 18:00 12/29/20 06:29 IVPB 400 mls 0600,1800 EDDIE Administration Insulin Human Lispro 0 units 12/22/20 11:23 12/29/20 13:36 Humalog 300 Units/3 Ml Vial SC 6 unit .BEDTIME SLIDING SC PRN Administration Bedtime Correctional Scale Insulin Human Lispro 0 units 12/23/20 17:17 12/28/20 18:12 Humalog 300 Units/3 Ml Vial SC 10 unit .MODERATE SLIDING SC PRN Administration Moderate Correctional Scale Insulin Human NPH 25 unit 12/22/20 21:00 12/29/20 09:09 Nph, Human Insulin Isophane 300 Unit/3 Ml Vial SC 25 units BID EDDIE Administration Methylprednisolone Sodium Succinate 125 mg 12/28/20 11:00 12/29/20 09:11 Methylprednisolone Sod Succ/Pf 125 Mg/2 Ml Vial IVP 125 mg 1100 EDDIE Administration Morphine Sulfate 2 mg 12/21/20 13:29 12/29/20 12:00 Morphine 2 Mg/Ml Vial SLOW IVP 2 mg Q4H PRN Administration Severe Pain (7-10) Ondansetron HCl 4 mg 12/20/20 23:49 12/28/20 14:57 Ondansetron Pf 4 Mg/2 Ml Vial IVP 4 mg Q6H PRN Administration Nausea/Vomiting Pantoprazole Sodium 40 mg 12/27/20 21:00 12/29/20 09:10 Pantoprazole 40 Mg Vial IVP 40 mg BID EDDIE Administration Saccharomyces Boulardii 250 mg 12/23/20 09:00 12/29/20 09:10 Saccharomyces Boulardii 250 Mg Cap PO 250 mg DAILY EDDIE Administration Sodium Chloride 10 ml 12/21/20 09:00 12/29/20 09:11 Flush - Normal Saline 10 Ml Syringe IVF 10 ml Q12HR EDDIE Administration Hospitalist Exam Vitals: Vital Signs (12 hours) Temp Pulse Resp BP BP Pulse Ox 12/29/20 11:37 98.2 F 83 16 147/83 H 95 12/29/20 07:40 97.6 F 76 16 151/84 H 98 12/29/20 04:00 97.7 F 73 18 146/81 H 97 Weight Admit Weight 284 lb Weight 283 lb 15.286 oz General Appearance: NAD, awake alert Eye: PERRL ENT: normocephalic atraumatic Neck: supple Heart: RRR, normal peripheral pulses Respiratory: CTAB, normal chest expansion Gastrointestinal: soft, normal bowel sounds Neurological: cranial nerve grossly intact, no focal deficits Psychiatric: normal affect, normal behavior, A&O x 3 Hosp A/P - Plan 50-year-old male with diabetes mellitus type IIuncontrolled presented to the emergency room on 12/20 with left foot swelling. Initial vital signs in the emergency room showed temperature 101.5 with pulse rate of 105, respiration 20 and blood pressure 101/67. He underwent amputation of the left 1st, 2nd and 3rd toes with metatarsal with extensive debridement on 12/21. Severe sepsis due to severe necrotizing infection of the left foot due to group B strep and enterococcus s/p debridement 12/21 On IV antibiotics per ID S/p PICC line placement on 12/24 manager banquet consulted Diabetic ketoacidosis on admission due to medication noncompliance s/p insulin drip Improved DC IV fluids Diabetes mellitus type 2uncontrolled NPH and SSI Acute kidney injury Improved Obesity with a BMI 37.5 Lifestyle modification emphasized Hyponatremia Improved Hyperkalemia -resolved Acute blood loss anemia -Hemoglobin consistently dropping-93 on December 21 and today it is at 5. -She has no history of peptic ulcer disease or hemorrhoids or diverticulosis artery AVM. - is not on aspirin or NSAID at home he is not on any blood thinner -He has not had any endoscopy study recently including colonoscopy -not clear source of etiology [amputation is on second with minimal blood loss] -Check occult blood test. -Type and cross and 2 units of blood transfusion -Iron study panel -Protonix IV twice daily --GI consult in the morning -Now patient has episodes of fever--repeat blood cultures done -Elevated white count and fever=-- am concerned to start him on transfusion -We will give him Protonix and Benadryl as well as Tylenol prior to transfusion Hemolytic anemia -antibody send out labs still pending -Starting him on IV steroid at 1 mg/kg--oncology will be following with us. --We will transfuse another unit to keep the hemoglobin level above 7. 10th -So far he got 2 units of transfusion. Globin around 6.8 LDH is remain elevated -Latoya test is negative -Continue with vancomycin probably hemolytic anemia secondary to ceftriaxone. -He is continued with the vancomycin. Uncontrolled diabetes with A1c of 11.6. -Creatinine is around 1.34 on December 29. -Scheduled NPH as well as aggressive sliding scale.
--- NOTE | 2020-12-29 15:00 | PDOC.MOPN ---
Interval History: no complaints. feels better. - Vital Signs Vital Signs: Vital Signs (12 hours) Temp Pulse Resp BP BP Pulse Ox 12/29/20 11:37 98.2 F 83 16 147/83 H 95 12/29/20 07:40 97.6 F 76 16 151/84 H 98 12/29/20 04:00 97.7 F 73 18 146/81 H 97 Weight Admit Weight 284 lb Weight 283 lb 15.286 oz - Physical Exam General: Alert, Oriented x3, No acute distress HEENT: Atraumatic, PERRLA, EOMI, Mucous membr. moist/pink Cardiovascular: Regular rate Abdomen: Other (obese) Extremities: Other (right foot wound vac) Neurological: Normal speech Psych/Mental Status: Mental status NL - Labs Result Diagrams: 12/29/20 09:44 12/29/20 11:31 Lab results: Laboratory Results - last 24 hr 12/29/20 11:31: Glucose 290 H 12/29/20 09:44: WBC 16.5 H, RBC 2.22 L, Hgb 6.8 L, Hct 20.7 L, MCV 93.2, MCH 30.8, MCHC 33.0, RDW 16.2 H, Plt Count 413 H, MPV 7.2 L, Neutrophils % 71.4, Lymphocytes % 19.1 L, Monocytes % 8.5, Eosinophils % 0.6, Basophils % 0.4, Neutrophils # 11.8 H, Lymphocytes # 3.2, Monocytes # 1.4 H, Eosinophils # 0.1, Basophils # 0.1 12/29/20 07:21: Glucose 331 H 12/29/20 04:59: Lactate Dehydrogenase 400 H 12/29/20 04:59: Total Bilirubin 0.5, Direct Bilirubin 0.3, AST 27, ALT 37, Alkaline Phosphatase 90, Serum Total Protein 6.5, Albumin 2.6 L 12/29/20 04:59: Vancomycin Trough 20.0 12/29/20 04:59: Sodium 132 L, Potassium 4.4, Chloride 104, Carbon Dioxide 25, Anion Gap 7 L, BUN 20, Creatinine 1.34 H, Estimated GFR (MDRD) 68, Glucose 390 H, Calcium 8.0 12/29/20 04:53: POC Glucose 386 H 12/28/20 20:43: Glucose 379 H 12/28/20 19:48: POC Glucose 348 H 12/28/20 17:08: Glucose 414 H 12/27/20 15:25: Urine Color Yellow, Urine Clarity Clear, Urine pH 5.5, Ur Specific [place] 1.031, Urine Protein 100 A, Urine Glucose (UA) 500 A, Urine Ketones Negative, Urine Blood Trace A, Urine Nitrite Negative, Urine Bilirubin Negative, Urine Urobilinogen Normal, Ur Leukocyte Esterase Negative, Urine RBC 0-3, Urine WBC 0-3, Ur Squamous Epith Cells 0-3, Urine Bacteria None Seen 12/27/20 09:27: Blood Type A POSITIVE, Antibody Screen NEGATIVE, Crossmatch See Detail Status: lab reviewed by me A/P - Problem (1) Hemolytic anemia Current Visit: Yes Code(s): D58.9 - HEREDITARY HEMOLYTIC ANEMIA, UNSPECIFIED Status: Acute (2) Cellulitis of left foot Current Visit: Yes Code(s): L03.116 - CELLULITIS OF LEFT LOWER LIMB Status: Acute (3) DKA (diabetic ketoacidoses) Current Visit: Yes Code(s): E11.10 - TYPE 2 DIABETES MELLITUS WITH KETOACIDOSIS WITHOUT COMA Status: Acute - Plan Plan: likely drug inducted hemolytic anemia, antibiotics have been stopped bilirubin is normal, would expect elevated with hemolysis LDH and hgb improving with steroids Will continue steroids today, likely deescalate in am. no transfusion today.
[2020-12-29 17:42] LABS: Glucose 184 mg/dL (70-105)
--- NOTE | 2020-12-29 18:18 | PRG ---
DATE OF SERVICE: 12/29/2020 SUBJECTIVE: Mr. Metzger seems to be feeling better. He is not diaphoretic anymore. He is not having any pain or dyspneic. OBJECTIVE: VITAL SIGNS: His temperature has normalized, although he is on steroids. BP 140/89, heart rate 80, respirations 16, O2 saturation 97. GENERAL: Does not appear in distress. HEENT: Ocular movements conjugate. Oral cavity normal. LUNGS: Symmetric, clear breath sounds. HEART: S1-S2, regular rate. ABDOMEN: Soft, not distended. EXTREMITIES: Left foot with a dressing in place. LABORATORY DATA: White cell count is 16.5, hemoglobin 6.8, platelets 413 with 71% neutrophils. Creatinine 1.34, glucose 390. Liver profile normal. LDH is down to 400. Albumin 2.6. Direct antiglobulin test was negative and Latoya test was negative too. ASSESSMENT AND DISCUSSION: 1. Type 2 diabetes. 2. Neuropathy. 3. Perforating injury to foot with necrotizing infection, status post amputation of second and third rays with improvement. Group B strep is seems to be the pathogen. 4. Hemolytic anemia probably due to beta-lactam. The patient is currently on vancomycin, which will be continued to the end of therapy. He is receiving corticosteroids for management of hemolytic anemia. The last report does not state the planned duration of therapy at this point in time. Job ID: [id number]
[2020-12-29 22:26] LABS: Glucose 208 mg/dL (70-105)
[2020-12-30] MEDS: VANCOMYCIN 2 GRAM/400 ML BAG 2 GM in Premix Bag 1 BAG IVPB SCH ×2 (05:10→17:59)
[2020-12-30] MEDS: HumaLOG 300 UNITS/3 ML VIAL SC PRN (05:13)
[2020-12-30 06:17] LABS: #Lymphocytes 2.8 thou/uL (1.20-3.40); #Monocytes 0.9 thou/uL (0.11-0.59); #Neutrophils 8.8 thou/uL (1.40-6.50); %Basophils 0.3 % (0.0-1.0); %Eosinophils 0.3 % (0.0-10.0); %Lymphocytes 22.1 % (21.0-51.0); %Monocytes 7.4 % (0.0-10.0); %Neutrophils 69.9 % (42.0-75.0); Mean Corpuscular HGB CONC 33.9 g/dL (32.0-36.0); Mean Corpuscular Hemoglobin 32.5 pg (27.0-31.0); Mean Corpuscular Volume 95.8 fL (78.0-98.0); Platelet Count 355 thou/uL (130-400); RBC Distribution Width 17.9 % (11.5-14.5); Red Blood Cell (RBC) Count 2.15 mill/uL (4.70-6.10); White Blood Cell (WBC) Count 12.6 thou/uL (4.8-10.8)
[2020-12-30 06:41] LABS: Anion Gap 10 mmol/L (10-20); BUN (Urea Nitrogen) 16 mg/dL (8.4-25.7); Calc. Creatinine Clearance 157 mL/min (70-130); Carbon Dioxide 22 mmol/L (22-29); Chloride 107 mmol/L (98-107); Glucose 256 mg/dL (70-105); Potassium 4.3 mmol/L (3.5-5.1); Sodium 135 mmol/L (136-145)
[2020-12-30 06:43] LABS: ALT (SGPT) 25 U/L (8-55); AST (SGOT) 16 U/L (5-34); Albumin 2.4 g/dL (3.5-5.0); Alkaline Phosphatase 82 U/L (40-110); Bilirubin, Direct 0.2 mg/dL (0.1-0.3); Bilirubin, Total 0.4 mg/dL (0.2-1.2)
[2020-12-30 08:05] LABS: Glucose 200 mg/dL (70-105)
[2020-12-30] MEDS: Saccharomyces boulardii 250 MG CAP PO SCH (09:19)
[2020-12-30] MEDS: Gabapentin 300 MG CAP PO SCH ×3 (09:19→20:11)
[2020-12-30] MEDS: guaiFENesin ER 600 MG TAB PO SCH ×2 (09:19→20:39)
[2020-12-30] MEDS: Pantoprazole 40 MG VIAL IVP SCH ×2 (09:19→20:12)
[2020-12-30] MEDS ORDERED: NPH, Human Insulin Isophane 300 UNIT/3 ML VIAL SC SCH ×2 (09:45→21:00)
[2020-12-30] MEDS ORDERED: Aspirin 81 mg Enteric Coated Tablet PO SCH (12:00)
[2020-12-30 12:05] LABS: Glucose 155 mg/dL (70-105)
[2020-12-30 12:11] LABS: Hemoglobin A1c 6.6 % (4.0-6.0)
[2020-12-30] MEDS: Aspirin 81 mg Enteric Coated Tablet PO SCH (12:32)
--- NOTE | 2020-12-30 13:29 | CT ---
CT HEAD WITHOUT CONTRAST: INDICATION: Mental status change. Blurry vision. FINDINGS: Ventricles have normal size and position. There is no evidence of mass or hemorrhage. No evidence o f infarct or edema. IMPRESSION: No acute abnormality. POS: AGW
--- NOTE | 2020-12-30 13:48 | PDOC.HOSPP ---
- Subjective Encounter Date: 12/30/20 Encounter Time: 10:00 Subjective: Patient seen this morning. he had some blurriness which was not seen before. No pain behind his eyes. TV screen seems to be quite bloody this morning. I talked to Cee Delia we are changing his Solu-Medrol to prednisone 30 mg twice a day. Stat CT head did not show any acute abnormality patient did not had any other neurological symptoms including sensory impairment or weakness in his extremities no facial numbness or dysarthria. Just blurriness. This could be secondary to being on high-dose steroid for the last 2 days. - Objective Vital Signs & Weight: Vital Signs (12 hours) Temp Pulse Resp BP Pulse Ox 12/30/20 07:11 99.2 F 83 20 151/88 H 100 Weight Admit Weight 284 lb Weight 283 lb 15.286 oz I&O: 12/29/20 12/30/20 12/31/20 06:59 06:59 06:59 Intake Total 350 2325 2175 Output Total 800 900 Balance 350 1525 1275 Result Diagrams: 12/30/20 05:59 12/30/20 11:24 Additional Labs: Accuchecks 12/30/20 12/30/20 12/29/20 11:20 05:12 20:24 POC Glucose 186 H 235 H 140 H Hospitalist ROS - Medication Medications: Active Medications Generic Name Dose Route Start Last Admin Trade Name Freq PRN Reason Stop Dose Admin Acetaminophen 1,000 mg 12/27/20 13:18 12/27/20 16:23 Acetaminophen 500 Mg Tab PO 1,000 mg Q6H PRN Administration Moderate to Severe Pain (6-10) Aspirin 81 mg 12/31/20 09:00 12/30/20 12:32 Aspirin 81 Mg Enteric Coated Tablet PO 81 mg DAILY EDDIE Administration Aspirin 81 mg 12/30/20 12:00 12/30/20 12:32 Aspirin 81 Mg Enteric Coated Tablet PO 12/30/20 14:00 81 mg NOW EDDIE Administration Benzonatate 100 mg 12/21/20 21:06 12/26/20 20:54 Benzonatate 100 Mg Cap PO 100 mg Q6H PRN Administration Cough Gabapentin 300 mg 12/27/20 15:00 12/30/20 09:19 Gabapentin 300 Mg Cap PO Not Given TID EDDIE Guaifenesin 600 mg 12/23/20 21:00 12/30/20 09:19 Guaifenesin Er 600 Mg Tab PO Not Given Q12HR EDDIE Vancomycin HCl 2 gm/ Device 400 mls @ 200 mls/hr 12/27/20 18:00 12/30/20 05:10 IVPB 400 mls 0600,1800 EDDIE Administration Insulin Human Lispro 0 units 12/29/20 13:41 12/30/20 05:13 Humalog 300 Units/3 Ml Vial SC 6 unit .AGGRESSIVE SLIDING PRN Administration Aggressive Correctional Scale Morphine Sulfate 2 mg 12/21/20 13:29 12/29/20 12:00 Morphine 2 Mg/Ml Vial SLOW IVP 2 mg Q4H PRN Administration Severe Pain (7-10) Ondansetron HCl 4 mg 12/20/20 23:49 12/28/20 14:57 Ondansetron Pf 4 Mg/2 Ml Vial IVP 4 mg Q6H PRN Administration Nausea/Vomiting Pantoprazole Sodium 40 mg 12/27/20 21:00 12/30/20 09:19 Pantoprazole 40 Mg Vial IVP 40 mg BID EDDIE Administration Saccharomyces Boulardii 250 mg 12/23/20 09:00 12/30/20 09:19 Saccharomyces Boulardii 250 Mg Cap PO Not Given DAILY EDDIE Sodium Chloride 10 ml 12/21/20 09:00 12/30/20 09:20 Flush - Normal Saline 10 Ml Syringe IVF 10 ml Q12HR EDDIE Administration Hospitalist Exam Vitals: Vital Signs (12 hours) Temp Pulse Resp BP Pulse Ox 12/30/20 07:11 99.2 F 83 20 151/88 H 100 Weight Admit Weight 284 lb Weight 283 lb 15.286 oz General Appearance: NAD, awake alert Eye: PERRL ENT: normocephalic atraumatic Neck: supple Heart: RRR, normal peripheral pulses Respiratory: CTAB, normal chest expansion Gastrointestinal: soft, normal bowel sounds Extremities: 1+ LE edema Neurological: cranial nerve grossly intact, normal sensation to touch, no weakness Neurological - other findings: Subjective blurring Psychiatric: A&O x 3 Hosp A/P - Plan 50-year-old male with diabetes mellitus type IIuncontrolled presented to the emergency room on 12/20 with left foot swelling. Initial vital signs in the emergency room showed temperature 101.5 with pulse rate of 105, respiration 20 and blood pressure 101/67. He underwent amputation of the left 1st, 2nd and 3rd toes with metatarsal with extensive debridement on 12/21. Severe sepsis due to severe necrotizing infection of the left foot due to group B strep and enterococcus s/p debridement 12/21 On IV antibiotics per ID S/p PICC line placement on 12/24 senior corporate strategy manager consulted Diabetic ketoacidosis on admission due to medication noncompliance s/p insulin drip Improved DC IV fluids Diabetes mellitus type 2uncontrolled NPH and SSI Acute kidney injury Improved Obesity with a BMI 37.5 Lifestyle modification emphasized Hyponatremia Improved Hyperkalemia -resolved Acute blood loss anemia -Hemoglobin consistently dropping-93 on December 21 and today it is at 5. -She has no history of peptic ulcer disease or hemorrhoids or diverticulosis artery AVM. - is not on aspirin or NSAID at home he is not on any blood thinner -He has not had any endoscopy study recently including colonoscopy -not clear source of etiology [amputation is on second with minimal blood loss] -Check occult blood test. -Type and cross and 2 units of blood transfusion -Iron study panel -Protonix IV twice daily --GI consult in the morning -Now patient has episodes of fever--repeat blood cultures done -Elevated white count and fever=-- am concerned to start him on transfusion -We will give him Protonix and Benadryl as well as Tylenol prior to transfusion Hemolytic anemia -antibody send out labs still pending -Starting him on IV steroid at 1 mg/kg--oncology will be following with us. --We will transfuse another unit to keep the hemoglobin level above 7. 10th -So far he got 2 units of transfusion. Globin around 6.8 LDH is remain elevated -Latoya test is negative -Continue with vancomycin probably hemolytic anemia secondary to ceftriaxone. -He is continued with the vancomycin. Uncontrolled diabetes with A1c of 11.6. -Creatinine is around 1.34 on December 29. -Scheduled NPH as well as aggressive sliding scale. he had some blurriness which was not seen before. No pain behind his eyes. TV screen seems to be quite bloody this morning. I talked to Cee Lin we are changing his Solu-Medrol to prednisone 30 mg twice a day. Stat CT head did not show any acute abnormality patient did not had any other neurological symptoms including sensory impairment or weakness in his extremities no facial numbness o r dysarthria. Just blurriness. This could be secondary to being on high-dose steroid for the last 2 days. Neurology consult placed. I do not think any MRI is necessary at this point as he does not have any other focal neurological symptoms. Follow with the PT OT recommendations. He is on aspirin as well as Lipitor will follow with the TSH A1c and lipid panel. If stroke work-up is negative possibly discharge him on Sunday to the rehab
--- NOTE | 2020-12-30 14:25 | CON ---
NEUROLOGY CONSULTATION DATE OF CONSULTATION: 12/30/2020 REASON FOR CONSULTATION: Acute onset blurred vision. HISTORY OF PRESENT ILLNESS: Mr. Jordy Metzger is a 50-year-old male with history significant for uncontrolled diabetes mellitus, presented to the emergency room on 12/20/2020 with left foot swelling. 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 He was treated for severe sepsis due to severe necrotizing infection of the left foot due to group B Streptococcus and Enterococcus. ID was consulted, and was started on IV antibiotics, and he is status post PICC placement on 12/24/2020. He also was found to have diabetic ketoacidosis on admission due to medication noncompliance with acute kidney injury and hyponatremia and hyperkalemia. Neurology was consulted because the patient has acute onset of blurred vision since this morning. He denies any visual field deficit, focal weakness, focal paresthesias, nausea, vomiting, headache, chest pain, abdominal pain, double vision, loss of vision, or loss of consciousness associated with blurred vision. He denies any recent illness or exposure to COVID-19. REVIEW OF SYSTEMS: All systems reviewed and were negative except the pertinent positives and negatives mentioned in the HPI. ALLERGIES: NO KNOWN DRUG ALLERGIES. HOME MEDICATIONS: 1. Gabapentin 1 tablet p.o. daily. 2. Metformin 1 tablet p.o. daily. PAST MEDICAL HISTORY: Diabetes mellitus. PAST SURGICAL HISTORY: Appendectomy. FAMILY HISTORY: No significant family history. SOCIAL HISTORY: The patient lives alone. Denies smoking. Occasional alcohol use. Vital Signs & Weight: Vital Signs (12 hours) Temp Pulse Resp BP Pulse Ox 12/30/20 07:11 99.2 F 83 20 151/88 H 100 Weight Admit Weight 284 lb Weight 283 lb 15.286 oz I&O: 12/29/20 12/30/20 12/31/20 06:59 06:59 06:59 Intake Total 350 2325 2175 Output Total 800 900 Balance 350 1525 1275 Additional Labs: Accuchecks 12/30/20 12/30/20 12/29/20 11:20 05:12 20:24 POC Glucose 186 H 235 H 140 H Generic Name Dose Route Start Last Admin Trade Name Freq PRN Reason Stop Dose Admin Acetaminophen 1,000 mg 12/27/20 13:18 12/27/20 16:23 Acetaminophen 500 Mg Tab PO 1,000 mg Q6H PRN Administration Moderate to Severe Pain (6-10) Aspirin 81 mg 12/31/20 09:00 12/30/20 12:32 Aspirin 81 Mg Enteric Coated Tablet PO 81 mg DAILY EDDIE Administration Aspirin 81 mg 12/30/20 12:00 12/30/20 12:32 Aspirin 81 Mg Enteric Coated Tablet PO 12/30/20 14:00 81 mg NOW EDDIE Administration Benzonatate 100 mg 12/21/20 21:06 12/26/20 20:54 Benzonatate 100 Mg Cap PO 100 mg Q6H PRN Administration Cough Gabapentin 300 mg 12/27/20 15:00 12/30/20 09:19 Gabapentin 300 Mg Cap PO Not Given TID EDDIE Guaifenesin 600 mg 12/23/20 21:00 12/30/20 09:19 Guaifenesin Er 600 Mg Tab PO Not Given Q12HR EDDIE Vancomycin HCl 2 gm/ Device 400 mls @ 200 mls/hr 12/27/20 18:00 12/30/20 05:10 IVPB 400 mls 0600,1800 EDDIE Administration Insulin Human Lispro 0 units 12/29/20 13:41 12/30/20 05:13 Humalog 300 Units/3 Ml Vial SC 6 unit .AGGRESSIVE SLIDING PRN Administration Aggressive Correctional Scale Morphine Sulfate 2 mg 12/21/20 13:29 12/29/20 12:00 Morphine 2 Mg/Ml Vial SLOW IVP 2 mg Q4H PRN Administration Severe Pain (7-10) Ondansetron HCl 4 mg 12/20/20 23:49 12/28/20 14:57 Ondansetron Pf 4 Mg/2 Ml Vial IVP 4 mg Q6H PRN Administration Nausea/Vomiting Pantoprazole Sodium 40 mg 12/27/20 21:00 12/30/20 09:19 Pantoprazole 40 Mg Vial IVP 40 mg BID EDDIE Administration Saccharomyces Boulardii 250 mg 12/23/20 09:00 12/30/20 09:19 Saccharomyces Boulardii 250 Mg Cap PO Not Given DAILY EDDIE Sodium Chloride 10 ml 12/21/20 09:00 12/30/20 09:20 Flush - Normal Saline 10 Ml Syringe IVF 10 ml Q12HR EDDIE Administration Vital Signs (12 hours) Temp Pulse Resp BP Pulse Ox 12/30/20 07:11 99.2 F 83 20 151/88 H 100 Weight Admit Weight 284 lb Weight 283 lb 15.286 oz PHYSICAL EXAMINATION: General Appearance: NAD, awake alert Eye: PERRL ENT: normocephalic atraumatic Neck: supple Heart: RRR, normal peripheral pulses Respiratory: CTAB, normal chest expansion Gastrointestinal: soft, normal bowel sounds Extremities: 1+ LE edema Neurological: Mental status, the patient is alert and oriented to person, place, and time. Speech is clear. Recent and remote memory intact. Fund of knowledge is appropriate. Cranial nerves 3 through 12 intact. He does have blurred vision, but no visual field deficit. Motor; muscle tone and bulk are normal. Strength 5/5 bilaterally. Sensory withdraws to nailbed pressure bilaterally. Gait deferred due to the patient's safety reasons. Cerebellar, finger-nose testing intact. DATA REVIEWED: I reviewed the labs which were significant for hyperglycemia. Head CT which was negative for acute intracranial pathology. ASSESSMENT AND PLAN: (1) Blurred vision Status: Acute (2) Myositis of left foot Code(s): M60.872 - OTHER MYOSITIS, LEFT ANKLE AND FOOT Status: Acute (3) Cellulitis of left foot Code(s): L03.116 - CELLULITIS OF LEFT LOWER LIMB Status: Acute (4)DKA (diabetic ketoacidoses) Code(s): E11.10 - TYPE 2 DIABETES MELLITUS WITH KETOACIDOSIS WITHOUT COMA Status: Acute Mr. Jordy Metzger is a 50-year-old male with history significant for diabetes mellitus, presented with pain and swelling of the left foot, status post debridement and also treated for severe sepsis due to Streptococcus and Enterococcus infection, acute onset blurred vision with no other focal deficits reported this morning. Head CT reviewed which was negative for acute intracranial pathology. Consider MRI of the brain to rule out acute intracranial process, and Ophthalmology consult to rule out complication of the uncontrolled diabetes. We will do neuro checks every 4 hours. Continue home medications. Continue medical management per primary team. Strict control of blood pressure control at this time. Strict control of blood glucose. Continue medical management per primary team. We will continue to follow. Thank you for the consult. Plan discussed with the patient and the nursing staff. Job ID: [id number] [facility]
[2020-12-30] MEDS: NPH, Human Insulin Isophane 300 UNIT/3 ML VIAL SC SCH ×2 (14:56→20:36)
[2020-12-30] MEDS: methylPREDNISolone Sod Succ/PF 125 MG/2 ML VIAL IVP SCH (14:56)
--- NOTE | 2020-12-30 15:38 | PDOC.MOPN ---
Interval History: having blurred vision, currently undergoing workup. no other neuro symptoms - Vital Signs Vital Signs: Vital Signs (12 hours) Temp Pulse Resp BP Pulse Ox 12/30/20 12:00 98.2 F 90 20 127/80 100 12/30/20 07:11 99.2 F 83 20 151/88 H 100 Weight Admit Weight 284 lb Weight 283 lb 15.286 oz - Physical Exam General: Alert, Oriented x3, No acute distress Lungs: Clear to auscultation Cardiovascular: Regular rate Abdomen: Normal bowel sounds Neurological: Normal speech - Labs Result Diagrams: 12/30/20 05:59 12/30/20 11:24 Lab results: Laboratory Results - last 24 hr 12/30/20 11:24: TSH 3rd Generation 2.7618 12/30/20 11:24: Glucose 155 H 12/30/20 11:20: POC Glucose 186 H 12/30/20 07:37: Glucose 200 H 12/30/20 05:59: Hemoglobin A1c 6.6 H 12/30/20 05:59: Total Bilirubin 0.4, Direct Bilirubin 0.2, AST 16, ALT 25, Alk tammy Phosphatase 82, Serum Total Protein 6.0, Albumin 2.4 L 12/30/20 05:59: WBC 12.6 H, RBC 2.15 L, Hgb 7.0 L, Hct 20.6 L, MCV 95.8, MCH 32.5 H, MCHC 33.9, RDW 17.9 H, Plt Count 355, MPV 7.0 L, Neutrophils % 69.9, Lymphocytes % 22.1, Monocytes % 7.4, Eosinophils % 0.3, Basophils % 0.3, Neutrophils # 8.8 H, Lymphocytes # 2.8, Monocytes # 0.9 H, Eosinophils # 0.0, Basophils # 0.0 12/30/20 05:59: Sodium 135 L, Potassium 4.3, Chloride 107, Carbon Dioxide 22, Anion Gap 10, BUN 16, Creatinine 1.00, Estimated GFR (MDRD) Greater than 90, Glucose 256 H, Calcium 8.0 12/30/20 05:12: POC Glucose 235 H 12/29/20 21:55: Glucose 208 H 12/29/20 20:24: POC Glucose 140 H 12/29/20 17:07: Glucose 184 H 12/27/20 17:38: Haptoglobin 80 Status: lab reviewed by me A/P - Problem (1) Hemolytic anemia Current Visit: Yes Code(s): D58.9 - HEREDITARY HEMOLYTIC ANEMIA, UNSPECIFIED Status: Acute (2) Cellulitis of left foot Current Visit: Yes Code(s): L03.116 - CELLULITIS OF LEFT LOWER LIMB Status: Acute (3) DKA (diabetic ketoacidoses) Current Visit: Yes Code(s): E11.10 - TYPE 2 DIABETES MELLITUS WITH KETOACIDOSIS WITHOUT COMA Status: Acute - Plan Plan: 1. Possible drug induced PLEITEZ, offending drug has been stopped. This is typically sufficient for management. 2. Due to significant dropped in hgb, he was started on steroids 1mg/kg with stability of hgb. 3. There was no elevation in bilirubin nor was Latoya positive. LDH was slightly increased. 4. Will reduce steroids to 0.5 mg/kg and switch to oral prednisone, anticipate rapid wean over next several days 5. he will need follow-up CBC in clinic.
[2020-12-30 17:46] LABS: Glucose 196 mg/dL (70-105)
[2020-12-30] MEDS: Atorvastatin Calcium 20 MG TAB PO SCH (20:09)
[2020-12-30] MEDS ORDERED: predniSONE 20 MG TAB PO SCH (21:00)
[2020-12-30 22:53] LABS: Glucose 226 mg/dL (70-105)
[2020-12-31] MEDS: VANCOMYCIN 2 GRAM/400 ML BAG 2 GM in Premix Bag 1 BAG IVPB SCH ×2 (06:07→17:39)
[2020-12-31] MEDS: HumaLOG 300 UNITS/3 ML VIAL SC PRN ×2 (06:11→12:32)
[2020-12-31 06:22] LABS: #Basophils 0.1 thou/uL (0.0-0.2); #Eosinphils 0.3 thou/uL (0.0-0.7); #Lymphocytes 2.2 thou/uL (1.20-3.40); #Monocytes 0.9 thou/uL (0.11-0.59); #Neutrophils 7.1 thou/uL (1.40-6.50); %Basophils 0.8 % (0.0-1.0); %Eosinophils 2.4 % (0.0-10.0); %Lymphocytes 21.1 % (21.0-51.0); %Monocytes 8.2 % (0.0-10.0); %Neutrophils 67.5 % (42.0-75.0); Mean Corpuscular HGB CONC 32.1 g/dL (32.0-36.0); Mean Corpuscular Hemoglobin 30.5 pg (27.0-31.0); Mean Corpuscular Volume 95.1 fL (78.0-98.0); Mean Platelet Volume 7.5 fL (7.4-10.4); Platelet Count 337 thou/uL (130-400); RBC Distribution Width 17.5 % (11.5-14.5); Red Blood Cell (RBC) Count 2.28 mill/uL (4.70-6.10); White Blood Cell (WBC) Count 10.5 thou/uL (4.8-10.8)
[2020-12-31 06:41] LABS: Anion Gap 12 mmol/L (10-20); BUN (Urea Nitrogen) 14 mg/dL (8.4-25.7); Calc. Creatinine Clearance 169 mL/min (70-130); Calcium 8.2 mg/dL (7.8-10.44); Carbon Dioxide 21 mmol/L (22-29); Chloride 109 mmol/L (98-107); Glucose 175 mg/dL (70-105); Potassium 4.2 mmol/L (3.5-5.1); Sodium 138 mmol/L (136-145)
[2020-12-31 06:44] LABS: ALT (SGPT) 20 U/L (8-55); AST (SGOT) 12 U/L (5-34); Albumin 2.5 g/dL (3.5-5.0); Alkaline Phosphatase 81 U/L (40-110); Bilirubin, Direct 0.2 mg/dL (0.1-0.3); Bilirubin, Total 0.3 mg/dL (0.2-1.2); Cardiac Risk 4.8 (Less than 4.5); Cholesterol 119 mg/dl (< 200 Desired); HDL Cholesterol 25 mg/dL (>60 Neg Risk); LDL Cholesterol, Calculated 70 mg/dL; Protein, Total 5.4 g/dL (6.0-8.3); Triglycerides 118 mg/dL (Less than 150)
[2020-12-31] MEDS: Gabapentin 300 MG CAP PO SCH ×3 (10:05→21:02)
[2020-12-31] MEDS: Aspirin 81 mg Enteric Coated Tablet PO SCH (10:05)
[2020-12-31] MEDS: Saccharomyces boulardii 250 MG CAP PO SCH (10:06)
[2020-12-31] MEDS: guaiFENesin ER 600 MG TAB PO SCH ×3 (10:06→21:40)
[2020-12-31] MEDS: Pantoprazole 40 MG VIAL IVP SCH ×2 (10:07→21:40)
[2020-12-31] MEDS: Morphine 2 MG/ML VIAL SLOW IVP PRN (10:13)
[2020-12-31] MEDS: NPH, Human Insulin Isophane 300 UNIT/3 ML VIAL SC SCH (10:21)
--- NOTE | 2020-12-31 15:07 | PDOC.HOSPP ---
- Subjective Encounter Date: 12/31/20 Encounter Time: 12:10 Subjective: Patient doing well. She has no complaints other than ongoing blurry vision. A CT head did not show any acute abnormality. His hemoglobin remained same around 7 - Objective Vital Signs & Weight: Vital Signs (12 hours) Temp Pulse Resp BP Pulse Ox 12/31/20 07:08 98.4 F 84 20 151/82 H 98 Weight Admit Weight 284 lb Weight 283 lb 15.286 oz I&O: 12/30/20 12/31/20 01/01/21 06:59 06:59 06:59 Intake Total 2325 2175 Output Total 800 900 Balance 1525 1275 Result Diagrams: 12/31/20 05:07 12/31/20 05:07 Additional Labs: Accuchecks 12/31/20 12/31/20 12/30/20 11:52 06:11 20:50 POC Glucose 261 H 156 H 214 H 12/30/20 12/30/20 20:34 16:22 POC Glucose 235 H 177 H Hospitalist ROS - Medication Medications: Active Medications Generic Name Dose Route Start Last Admin Trade Name Freq PRN Reason Stop Dose Admin Acetaminophen 1,000 mg 12/27/20 13:18 12/27/20 16:23 Acetaminophen 500 Mg Tab PO 1,000 mg Q6H PRN Administration Moderate to Severe Pain (6-10) Aspirin 81 mg 12/31/20 09:00 12/31/20 10:05 Aspirin 81 Mg Enteric Coated Tablet PO 81 mg DAILY EDDIE Administration Atorvastatin Calcium 20 mg 12/30/20 21:00 12/30/20 20:09 Atorvastatin Calcium 20 Mg Tab PO Not Given HS EDDIE Benzonatate 100 mg 12/21/20 21:06 12/26/20 20:54 Benzonatate 100 Mg Cap PO 100 mg Q6H PRN Administration Cough Gabapentin 300 mg 12/27/20 15:00 12/31/20 10:05 Gabapentin 300 Mg Cap PO 300 mg TID EDDIE Administration Guaifenesin 600 mg 12/23/20 21:00 12/31/20 10:10 Guaifenesin Er 600 Mg Tab PO Not Given Q12HR EDDIE Vancomycin HCl 2 gm/ Device 400 mls @ 200 mls/hr 12/27/20 18:00 12/31/20 06:07 IVPB 400 mls 0600,1800 EDDIE Administration Insulin Human Lispro 0 units 12/29/20 13:41 12/31/20 12:32 Humalog 300 Units/3 Ml Vial SC 9 unit .AGGRESSIVE SLIDING PRN Administration Aggressive Correctional Scale Insulin Human NPH 30 unit 12/30/20 21:00 12/31/20 10:21 Nph, Human Insulin Isophane 300 Unit/3 Ml Vial SC 30 unit BID EDDIE Administration Ondansetron HCl 4 mg 12/20/20 23:49 12/28/20 14:57 Ondansetron Pf 4 Mg/2 Ml Vial IVP 4 mg Q6H PRN Administration Nausea/Vomiting Pantoprazole Sodium 40 mg 12/27/20 21:00 12/31/20 10:07 Pantoprazole 40 Mg Vial IVP 40 mg BID EDDIE Administration Saccharomyces Boulardii 250 mg 12/23/20 09:00 12/31/20 10:06 Saccharomyces Boulardii 250 Mg Cap PO 250 mg DAILY EDDIE Administration Sodium Chloride 10 ml 12/21/20 09:00 12/31/20 10:07 Flush - Normal Saline 10 Ml Syringe IVF 10 ml Q12HR EDDIE Administration Hospitalist Exam Vitals: Vital Signs (12 hours) Temp Pulse Resp BP Pulse Ox 12/31/20 07:08 98.4 F 84 20 151/82 H 98 Weight Admit Weight 284 lb Weight 283 lb 15.286 oz General Appearance: NAD, awake alert Eye: PERRL ENT: normocephalic atraumatic Neck: supple Heart: RRR, normal peripheral pulses Respiratory: CTAB, normal chest expansion Gastrointestinal: soft, normal bowel sounds Neurological: cranial nerve grossly intact, no focal deficits Psychiatric: A&O x 3 Hosp A/P - Plan 50-year-old male with diabetes mellitus type IIuncontrolled presented to the emergency room on 12/20 with left foot swelling. Initial vital signs in the emergency room showed temperature 101.5 with pulse rate of 105, respiration 20 and blood pressure 101/67. He underwent amputation of the left 1st, 2nd and 3rd toes with metatarsal with extensive debridement on 12/21. Severe sepsis due to severe necrotizing infection of the left foot due to group B strep and enterococcus s/p debridement 12/21 On IV antibiotics per ID S/p PICC line placement on 12/24 manager residential consulted Diabetic ketoacidosis on admission due to medication noncompliance s/p insulin drip Improved DC IV fluids Diabetes mellitus type 2uncontrolled NPH and SSI Acute kidney injury Improved Obesity with a BMI 37.5 Lifestyle modification emphasized Hyponatremia Improved Hyperkalemia -resolved Acute blood loss anemia -Hemoglobin consistently dropping-93 on December 21 and today it is at 5. -She has no history of peptic ulcer disease or hemorrhoids or diverticulosis artery AVM. - is not on aspirin or NSAID at home he is not on any blood thinner -He has not had any endoscopy study recently including colonoscopy -not clear source of etiology [amputation is on second with minimal blood loss] -Check occult blood test. -Type and cross and 2 units of blood transfusion -Iron study panel -Protonix IV twice daily --GI consult in the morning Hemolytic anemia -So far he got 2 units of transfusion. LDH i elevated -Latoya test is negative -Continue with vancomycin probably hemolytic anemia secondary to ceftriaxone. Uncontrolled diabetes with A1c of 11.6. -Creatinine is around 1.34 on December 29. -Scheduled NPH as well as aggressive sliding scale. he had some blurriness which was not seen before. No pain behind his eyes. TV screen seems to be quite bloody this morning. I talked to Cee Lin we are changing his Solu-Medrol to prednisone 30 mg twice a day. Stat CT head did not show any acute abnormality patient did not had any other neurological symptoms including sensory impairment or weakness in his extremities no facial numbness or dysarthria. Just blurriness. This could be secondary to being on high-dose steroid for the last 2 days. Neurology consult placed. I do not think any MRI is necessary at this point as he does not have any other focal neurological symptoms. Follow with the PT OT recommendations. He is on aspirin as well as Lipitor will follow with the TSH normal range A1c was 11.7 on December 22 but improved very dramatically on the at 6.6 LDL 70 - on low dose lipitor Pending placement
--- NOTE | 2020-12-31 15:44 | PDOC.MOPN ---
Interval History: continued blurred vision. No other neurological issues. - Vital Signs Vital Signs: Vital Signs (12 hours) Temp Pulse Resp BP Pulse Ox 12/31/20 07:08 98.4 F 84 20 151/82 H 98 Weight Admit Weight 284 lb Weight 283 lb 15.286 oz - Physical Exam General: Alert, Oriented x3, No acute distress Lungs: Clear to auscultation Cardiovascular: Regular rate Abdomen: Normal bowel sounds Neurological: Normal speech - Labs Result Diagrams: 12/31/20 05:07 12/31/20 05:07 Lab results: Laboratory Results - last 24 hr 12/31/20 11:52: POC Glucose 261 H 12/31/20 06:11: POC Glucose 156 H 12/31/20 05:07: Total Bilirubin 0.3, Direct Bilirubin 0.2, AST 12, ALT 20, Alkaline Phosphatase 81, Serum Total Protein 5.4 L, Albumin 2.5 L, Triglycerides 118, Cholesterol 119, LDL Cholesterol, Calc 70, HDL Cholesterol 25, Heart Disease Risk Ratio 4.8 12/31/20 05:07: WBC 10.5, RBC 2.28 L, Hgb 7.0 L, Hct 21.7 L, MCV 95.1, MCH 30.5, MCHC 32.1, RDW 17.5 H, Plt Count 337, MPV 7.5, Neutrophils % 67.5, Lymphocytes % 21.1, Monocytes % 8.2, Eosinophils % 2.4, Basophils % 0.8, Neutrophils # 7.1 H, Lymphocytes # 2.2, Monocytes # 0.9 H, Eosinophils # 0.3, Basophils # 0.1 12/31/20 05:07: Sodium 138, Potassium 4.2, Chloride 109 H, Carbon Dioxide 21 L, Anion Gap 12, BUN 14, Creatinine 0.93, Estimated GFR (MDRD) Greater than 90, Glucose 175 H, Calcium 8.2 12/30/20 22:31: Glucose 226 H 12/30/20 20:50: POC Glucose 214 H 12/30/20 20:34: POC Glucose 235 H 12/30/20 17:20: Glucose 196 H 12/30/20 16:22: POC Glucose 177 H Status: lab reviewed by me A/P - Problem (1) Hemolytic anemia Current Visit: Yes Code(s): D58.9 - HEREDITARY HEMOLYTIC ANEMIA, UNSPECIFIED Status: Acute (2) Cellulitis of left foot Current Visit: Yes Code(s): L03.116 - CELLULITIS OF LEFT LOWER LIMB Status: Acute (3) DKA (diabetic ketoacidoses) Current Visit: Yes Code(s): E11.10 - TYPE 2 DIABETES MELLITUS WITH KETOACIDOSIS WITHOUT COMA Status: Acute - Plan Plan: 1. hgb stable at 7.0. Unlikley hemolytic anemia as haptoglobin, bilirubin, daron normal 2. no evidence of bleeding. 3. rapid wean of steroids 4. will discuss transfusion with Dr. Aguilar.
--- NOTE | 2020-12-31 17:05 | PRG ---
DATE OF SERVICE: 12/31/2020 SUBJECTIVE: Mr. Metzger is feeling better. A little bit of blurred vision. No respiratory symptoms. No vomiting. OBJECTIVE: VITAL SIGNS: Temperature has normalized. Of course, he is on steroids. Other vital signs are not remarkable. GENERAL: Awake, alert, and oriented. LUNGS: Clear. HEART: S1 and S2, regular rate. ABDOMEN: Soft. Not distended. EXTREMITIES: Left foot wound looks great with granulation tissue. LABORATORY DATA: White cell count is down to 10.5, hemoglobin 7, platelets 337. Creatinine. Liver profile normal. Albumin 2.5. Haptoglobin was normal, so the pneumatic press hand assessment was that hemolytic anemia is unlikely, so other reasons for the decrease in the hemoglobin would be more likely and a rapid wean of steroids has been recommended. We are going to continue with vancomycin, however, as the antibiotic of choice to complete the treatment for his osteomyelitis. Job ID: [id number] [facility]
[2020-12-31] MEDS: Atorvastatin Calcium 20 MG TAB PO SCH (21:04)
[2020-12-31] MEDS: predniSONE 20 MG TAB PO SCH (21:50)
[2021-01-01] MEDS: NPH, Human Insulin Isophane 300 UNIT/3 ML VIAL SC SCH ×3 (00:32→22:59)
[2021-01-01 06:04] LABS: #Basophils 0.1 thou/uL (0.0-0.2); #Eosinphils 0.1 thou/uL (0.0-0.7); #Lymphocytes 2.3 thou/uL (1.20-3.40); #Monocytes 0.6 thou/uL (0.11-0.59); #Neutrophils 6.9 thou/uL (1.40-6.50); %Basophils 0.7 % (0.0-1.0); %Eosinophils 1.2 % (0.0-10.0); Hemoglobin 7.5 g/dL (14.0-18.0); Mean Corpuscular HGB CONC 31.7 g/dL (32.0-36.0); Mean Corpuscular Hemoglobin 30.4 pg (27.0-31.0); Mean Corpuscular Volume 95.8 fL (78.0-98.0); Mean Platelet Volume 7.3 fL (7.4-10.4); Platelet Count 329 thou/uL (130-400); RBC Distribution Width 16.7 % (11.5-14.5); Red Blood Cell (RBC) Count 2.47 mill/uL (4.70-6.10)
[2021-01-01] MEDS: VANCOMYCIN 2 GRAM/400 ML BAG 2 GM in Premix Bag 1 BAG IVPB SCH ×2 (06:08→17:43)
[2021-01-01 06:11] LABS: Anion Gap 11 mmol/L (10-20); BUN (Urea Nitrogen) 14 mg/dL (8.4-25.7); Calc. Creatinine Clearance 161 mL/min (70-130); Calcium 8.3 mg/dL (7.8-10.44); Carbon Dioxide 20 mmol/L (22-29); Chloride 109 mmol/L (98-107); Glucose 233 mg/dL (70-105); Potassium 4.3 mmol/L (3.5-5.1); Sodium 136 mmol/L (136-145)
[2021-01-01 06:17] LABS: Vancomycin, Trough 20.9 ug/mL
[2021-01-01 06:20] LABS: ALT (SGPT) 20 U/L (8-55); AST (SGOT) 18 U/L (5-34); Albumin 2.7 g/dL (3.5-5.0); Alkaline Phosphatase 88 U/L (40-110); Bilirubin, Direct 0.2 mg/dL (0.1-0.3); Bilirubin, Total 0.3 mg/dL (0.2-1.2); Protein, Total 6.1 g/dL (6.0-8.3)
[2021-01-01 07:53] LABS: Glucose 298 mg/dL (70-105)
[2021-01-01] MEDS: Gabapentin 300 MG CAP PO SCH ×3 (09:10→22:19)
[2021-01-01] MEDS: guaiFENesin ER 600 MG TAB PO SCH ×2 (09:12→22:38)
[2021-01-01] MEDS: Saccharomyces boulardii 250 MG CAP PO SCH (09:12)
[2021-01-01] MEDS: Pantoprazole 40 MG VIAL IVP SCH ×2 (09:12→22:39)
[2021-01-01] MEDS: predniSONE 20 MG TAB PO SCH (09:32)
[2021-01-01 12:21] LABS: Glucose 473 mg/dL (70-105)
[2021-01-01] MEDS: HumaLOG 300 UNITS/3 ML VIAL SC PRN ×2 (13:52→17:43)
--- NOTE | 2021-01-01 15:52 | CON ---
DATE OF CONSULTATION: 01/01/2021 REASON FOR CONSULTATION: Blurred vision. TIME OF CONSULT: 1200 hours. HISTORY OF PRESENT ILLNESS: The patient is a 50-year-old man who came to the emergency room with a sore foot which later was determined to be infected, with an admission blood sugar of 700. He was placed on the diabetic ketoacidosis protocol and the foot infection management begun. He states that after several days, he noticed his vision of each eye had decreased considerably. On examination, visual acuity with the right eye is J-10 (20/100 equivalent) with a +2.00 correction, then improving to J-5 (20/60 equivalent) with a +3.00 correction. Left eye was J-5 with a +2.00 correction, improved to J-3 (20/40 equivalent) with a +3.00 correction. Intra-ocular pressure with a Arun-Pen was 14 and 16 mmHg in the right eye and 10 mmHg in the left eye. The pupils were equal and reactive, without an afferent pupil defect. Ocular motility was aligned and full. The pupils were dilated with Mydriacyl and Devin-Synephrine. Dilated fundus exam showed some scattered small hemorrhages in the nasal periphery of both eyes. The right eye showed 4-5 lipid deposits around the macula, and the left eye showed one larger lipid deposit at the macula, plus a 1-1/2 disc diameter area of ischemic infarct. Cup-to-disc ratio was about 0.6 for the right eye and 0.55 in the left eye. The vessels are patent and the optic nerve rim color is normal. ASSESSMENT: 1. The shift in his vision is most likely caused by the osmotic forces of the rapid drop of his blood sugar. This should ultimately return to his pre-treatment vision once his blood sugar has stabilized and remained so for a number of weeks. 2. He does have some background diabetic retinopathy and does need some periodic evaluation after his discharge, and I told this to him and gave him my business card with my name and address and phone number. Job ID: [id number] [facility]
--- NOTE | 2021-01-01 19:52 | PDOC.HOSPP ---
- Subjective Encounter Date: 01/01/21 Encounter Time: 11:30 Subjective: F/U: osteomyelitis The patient states his eyes are still blurry. Dr. Menendez evaluated patient and dilated eyes, full exam to be completed tomorrow Patient's left leg has wound vac and still healing. He states he has diminished sensation on left leg. Patient does not want to go home, but explained that is his only option because he has no insurance - Objective Vital Signs & Weight: Vital Signs (12 hours) Temp Pulse Resp BP Pulse Ox 01/01/21 19:40 97.4 F L 86 18 158/89 H 100 01/01/21 08:00 98.7 F 83 20 148/82 H 98 Weight Admit Weight 284 lb Weight 283 lb 15.286 oz I&O: 12/31/20 01/01/21 01/02/21 06:59 06:59 06:59 Intake Total 2175 2175 Output Total 900 850 Balance 1275 1325 Result Diagrams: 01/01/21 05:34 01/01/21 11:50 Additional Labs: Accuchecks 01/01/21 01/01/21 01/01/21 16:59 11:52 05:17 POC Glucose 441 H 422 H 227 H Hospitalist ROS - Review of Systems Constitutional: denies: fever, chills - Medication Medications: Active Medications Generic Name Dose Route Start Last Admin Trade Name Freq PRN Reason Stop Dose Admin Acetaminophen 1,000 mg 12/27/20 13:18 12/27/20 16:23 Acetaminophen 500 Mg Tab PO 1,000 mg Q6H PRN Administration Moderate to Severe Pain (6-10) Aspirin 81 mg 12/31/20 09:00 12/31/20 10:05 Aspirin 81 Mg Enteric Coated Tablet PO 81 mg DAILY EDDIE Administration Atorvastatin Calcium 20 mg 12/30/20 21:00 12/31/20 21:04 Atorvastatin Calcium 20 Mg Tab PO 20 mg HS EDDIE Administration Benzonatate 100 mg 12/21/20 21:06 12/26/20 20:54 Benzonatate 100 Mg Cap PO 100 mg Q6H PRN Administration Cough Gabapentin 300 mg 12/27/20 15:00 01/01/21 16:47 Gabapentin 300 Mg Cap PO Not Given TID EDDIE Guaifenesin 600 mg 12/23/20 21:00 01/01/21 09:12 Guaifenesin Er 600 Mg Tab PO Not Given Q12HR EDDIE Vancomycin HCl 2 gm/ Device 400 mls @ 200 mls/hr 12/27/20 18:00 01/01/21 17:43 IVPB 400 mls 0600,1800 EDDIE Administration Insulin Human Lispro 0 units 12/29/20 13:41 01/01/21 17:43 Humalog 300 Units/3 Ml Vial SC 13 unit .AGGRESSIVE SLIDING PRN Administration Aggressive Correctional Scale Insulin Human NPH 30 unit 12/30/20 21:00 01/01/21 09:13 Nph, Human Insulin Isophane 300 Unit/3 Ml Vial SC 30 unit BID EDDIE Administration Ondansetron HCl 4 mg 12/20/20 23:49 12/28/20 14:57 Ondansetron Pf 4 Mg/2 Ml Vial IVP 4 mg Q6H PRN Administration Nausea/Vomiting Pantoprazole Sodium 40 mg 12/27/20 21:00 01/01/21 09:12 Pantoprazole 40 Mg Vial IVP 40 mg BID EDDIE Administration Saccharomyces Boulardii 250 mg 12/23/20 09:00 01/01/21 09:12 Saccharomyces Boulardii 250 Mg Cap PO 250 mg DAILY EDDIE Administration Sodium Chloride 10 ml 12/21/20 09:00 01/01/21 09:12 Flush - Normal Saline 10 Ml Syringe IVF 10 ml Q12HR EDDIE Administration Hospitalist Exam Vitals: Vital Signs (12 hours) Temp Pulse Resp BP Pulse Ox 01/01/21 19:40 97.4 F L 86 18 158/89 H 100 01/01/21 08:00 98.7 F 83 20 148/82 H 98 Weight Admit Weight 284 lb Weight 283 lb 15.286 oz General Appearance: NAD, awake alert Eye: PERRL, anicteric sclera ENT: normocephalic atraumatic, no oropharyngeal lesions Neck: no JVD Heart: RRR, no murmur, no gallops, no rubs Respiratory: CTAB, no wheezes, no rales, no ronchi Gastrointestinal: soft, non-tender, non-distended, normal bowel sounds Extremities: no cyanosis, no clubbing, no edema Extremities - other findings: left leg ulcer with wound vac and bandaged Neurological: cranial nerve grossly intact, normal sensation to touch, no we akness Hosp A/P - Plan MRI left foot: high grade diabetic neuropathy. Dorsal mid foot and forefoot superficial blister. Diabetic myositis. Extensive celllulitis This is a 50 year old male who presented with swelling of his left foot. He also had an ulcer in that area and was in DKA originally on admission that was debrided. He is now transferred to the floor Left foot necrotizing cellulitis s/p debridement - patient was on zosyn 12/21 to 12/22 and then flagyl 12/22 to 12/26, ceftriaxone 12/22 to 12/25 and meropenem 12/26 to 12/27. He then was switched to vancomycin 12/27 to 01/01 due to worsening anemia from antibiotics. MRI showed no osteomyelitis. He is s/p surgical debridement - will switch to daptomycin since patien juan need outpatient antibiotics until 02/20 and rehab is not an option due to no insurance Anemia - possibly from antibiotics, hemoglobin dropped to 5. Cephalosporin and flagyl discontinued and hemoglobin now 7.5. Haptoglobin normal. - steroids discontinued, hematology is following - will check folate and B12 Blurry vision - patient has intact visual acuity but slight blurred vision, possibly from diabetes. Opthalmology is evaluating Type II Diabetes - continue NPH 30 mg BID and humalog sliding scale. STeroids discontinued, monitor blood sugars
[2021-01-01] MEDS: Atorvastatin Calcium 20 MG TAB PO SCH (22:19)
[2021-01-01] MEDS ORDERED: Insulin Regular 300 UNITS/3 ML VIAL ONE (22:46)
[2021-01-02 05:39] LABS: Anion Gap 11 mmol/L (10-20); BUN (Urea Nitrogen) 17 mg/dL (8.4-25.7); Calc. Creatinine Clearance 194 mL/min (70-130); Calcium 8.5 mg/dL (7.8-10.44); Carbon Dioxide 21 mmol/L (22-29); Chloride 110 mmol/L (98-107); Glucose 157 mg/dL (70-105); Potassium 3.8 mmol/L (3.5-5.1); Sodium 138 mmol/L (136-145)
[2021-01-02 05:43] LABS: ALT (SGPT) 18 U/L (8-55); AST (SGOT) 13 U/L (5-34); Albumin 2.6 g/dL (3.5-5.0); Alkaline Phosphatase 79 U/L (40-110); Bilirubin, Direct 0.2 mg/dL (0.1-0.3); Bilirubin, Total 0.3 mg/dL (0.2-1.2); Protein, Total 5.9 g/dL (6.0-8.3)
[2021-01-02 06:02] LABS: Ferritin 1503.55 ng/mL (22-322)
[2021-01-02] MEDS: VANCOMYCIN 2 GRAM/400 ML BAG 2 GM in Premix Bag 1 BAG IVPB SCH ×2 (09:09→17:47)
[2021-01-02] MEDS: NPH, Human Insulin Isophane 300 UNIT/3 ML VIAL SC SCH ×2 (09:10→21:56)
[2021-01-02] MEDS: guaiFENesin ER 600 MG TAB PO SCH ×2 (09:10→23:20)
[2021-01-02] MEDS: Gabapentin 300 MG CAP PO SCH ×3 (09:10→20:30)
[2021-01-02] MEDS: Saccharomyces boulardii 250 MG CAP PO SCH (09:10)
[2021-01-02] MEDS: Aspirin 81 mg Enteric Coated Tablet PO SCH (09:10)
[2021-01-02] MEDS: Pantoprazole 40 MG VIAL IVP SCH ×3 (09:11→23:20)
[2021-01-02] MEDS: HumaLOG 300 UNITS/3 ML VIAL SC PRN (13:07)
--- NOTE | 2021-01-02 16:20 | PDOC.HOSPP ---
- Subjective Encounter Date: 01/02/21 Encounter Time: 12:00 Subjective: F/u: cellulitis left foot The patient has no new complaints. He still has wound vac on his leg. He has no real sensation in his left foot. He is ambulating with a walker . Discussed need for outpatient antibiotics . Patient has a cousin that lives in [place] and sister lives in [place], nobody can drive him here everyday and he is anxious about wound care He also doesn't know if he can afford the fingersticks and wants to be able to use a permanent device that monitors his blood sugars for him and self adminis ters insulin. He states it is a patch that he saw on a commercial the other day and wants that looked into His job does not offer health insurance - Objective Vital Signs & Weight: Vital Signs (12 hours) Temp Pulse Resp BP Pulse Ox 01/02/21 12:00 98.0 F 77 20 142/82 H 99 01/02/21 07:35 98.2 F 85 20 150/87 H 98 01/02/21 06:00 98.2 F 78 18 100 Weight Admit Weight 284 lb Weight 283 lb 15.286 oz I&O: 01/01/21 01/02/21 01/03/21 06:59 06:59 06:59 Intake Total 2175 2175 Output Total 850 2190 Balance 1325 -15 Result Diagrams: 01/01/21 05:34 01/02/21 04:41 Additional Labs: Accuchecks 01/02/21 01/02/21 01/01/21 12:07 04:57 19:45 POC Glucose 267 H 130 H 360 H 01/01/21 16:59 POC Glucose 441 H Hospitalist ROS - Review of Systems Constitutional: denies: fever, chills - Medication Medications: Active Medications Generic Name Dose Route Start Last Admin Trade Name Freq PRN Reason Stop Dose Admin Acetaminophen 1,000 mg 12/27/20 13:18 12/27/20 16:23 Acetaminophen 500 Mg Tab PO 1,000 mg Q6H PRN Administration Moderate to Severe Pain (6-10) Aspirin 81 mg 12/31/20 09:00 01/02/21 09:10 Aspirin 81 Mg Enteric Coated Tablet PO 81 mg DAILY EDDIE Administration Atorvastatin Calcium 20 mg 12/30/20 21:00 01/01/21 22:19 Atorvastatin Calcium 20 Mg Tab PO 20 mg HS EDDIE Administration Benzonatate 100 mg 12/21/20 21:06 12/26/20 20:54 Benzonatate 100 Mg Cap PO 100 mg Q6H PRN Administration Cough Gabapentin 300 mg 12/27/20 15:00 01/02/21 14:12 Gabapentin 300 Mg Cap PO Not Given TID EDDIE Guaifenesin 600 mg 12/23/20 21:00 01/02/21 09:10 Guaifenesin Er 600 Mg Tab PO Not Given Q12HR EDDIE Vancomycin HCl 2 gm/ Device 400 mls @ 200 mls/hr 12/27/20 18:00 01/02/21 09:09 IVPB 400 mls 0600,1800 EDDIE Administration Insulin Human Lispro 0 units 12/29/20 13:41 01/02/21 13:07 Humalog 300 Units/3 Ml Vial SC 9 unit .AGGRESSIVE SLIDING PRN Administration Aggressive Correctional Scale Insulin Human NPH 30 unit 12/30/20 21:00 01/02/21 09:10 Nph, Human Insulin Isophane 300 Unit/3 Ml Vial SC 30 unit BID EDDIE Administration Ondansetron HCl 4 mg 12/20/20 23:49 12/28/20 14:57 Ondansetron Pf 4 Mg/2 Ml Vial IVP 4 mg Q6H PRN Administration Nausea/Vomiting Pantoprazole Sodium 40 mg 12/27/20 21:00 01/02/21 09:42 Pantoprazole 40 Mg Vial IVP 40 mg BID EDDIE Administration Saccharomyces Boulardii 250 mg 12/23/20 09:00 01/02/21 09:10 Saccharomyces Boulardii 250 Mg Cap PO 250 mg DAILY EDDIE Administration Sodium Chloride 10 ml 12/21/20 09:00 01/02/21 09:11 Flush - Normal Saline 10 Ml Syringe IVF 10 ml Q12HR EDDIE Administration Hospitalist Exam Vitals: Vital Signs (12 hours) Temp Pulse Resp BP Pulse Ox 01/02/21 12:00 98.0 F 77 20 142/82 H 99 01/02/21 07:35 98.2 F 85 20 150/87 H 98 01/02/21 06:00 98.2 F 78 18 100 Weight Admit Weight 284 lb Weight 283 lb 15.286 oz General Appearance: NAD, awake alert Eye: PERRL, anicteric sclera ENT: normocephalic atraumatic, no oropharyngeal lesions Neck: no JVD Heart: RRR, no murmur, no gallops, no rubs Respiratory: CTAB, no wheezes, no rales, no ronchi Gastrointestinal: soft, non-tender, non-distended, normal bowel sounds Extremities: no cyanosis, no clubbing, no edema Skin: normal turgor, no lesions, no rashes Neurological: cranial nerve grossly intact, normal sensation to touch, no weakness, no focal deficits, no new deficit Musculoskeletal: normal tone, normal strength, no muscle wasting Musculoskeletal - other findings: wound vac on left leg Psychiatric: A&O x 3 Hosp A/P - Plan MRI left foot: high grade diabetic neuropathy. Dorsal mid foot and forefoot superficial blister. Diabetic myositis. Extensive celllulitis This is a 50 year old male who presented with swelling of his left foot. He also had an ulcer in that area and was in DKA originally on admission that was debrided. He is now transferred to the floor Left foot necrotizing cellulitis s/p debridement - patient was on zosyn 2/ to 12/22 and then flagyl 2/ to 12/26, ceftriaxone 2/3 to 2 and meropenem 12/26 to 12/27. He then was switched to vancomycin 12/27 to 01/01 due to worsening anemia from antibiotics. MRI showed no osteomyelitis. He is s/p surgical debridement - continue vancomycin while here and switch to daptomycin on discharge, end date 01/30 - case management consult for outpatient antibiotics Folate deficiency Anemia - Hb 7.5, previous antibiotics discontinued due to concern of drug induced anemia. Haptoglobin normal - folate level 5, will start supplementation. B12 normal Blurry vision - likely diabetic retinopathy - patient has intact visual acuity but slight blurred vision, possibly from diabetes. Opthalmology thinks it is likely diabetic retinopathy Type II Diabetes - continue NPH 30 mg BID and humalog sliding scale. STeroids discontinued, blood sugar improved to 130 Dispo: needs outpatient antibiotics , but may be difficult given inability to d rive here for antibiotics
[2021-01-02] MEDS ORDERED: Folic Acid 1 MG TAB PO SCH (18:00)
[2021-01-02] MEDS: Atorvastatin Calcium 20 MG TAB PO SCH (20:31)
[2021-01-03] MEDS: VANCOMYCIN 2 GRAM/400 ML BAG 2 GM in Premix Bag 1 BAG IVPB SCH ×2 (06:00→19:02)
[2021-01-03] MEDS ORDERED: Aspirin 81 mg Enteric Coated Tablet ONE (09:29)
[2021-01-03] MEDS ORDERED: Pantoprazole 40 MG VIAL ONE (09:30)
[2021-01-03] MEDS ORDERED: Saccharomyces boulardii 250 MG CAP ONE (09:30)
[2021-01-03] MEDS ORDERED: Gabapentin 300 MG CAP ONE (09:30)
[2021-01-03] MEDS ORDERED: Folic Acid 1 MG TAB ONE (09:30)
[2021-01-03] MEDS ORDERED: guaiFENesin/DM ER ONE (10:26)
[2021-01-03] MEDS: Saccharomyces boulardii 250 MG CAP PO SCH (10:30)
[2021-01-03] MEDS: Folic Acid 1 MG TAB PO SCH (10:30)
[2021-01-03] MEDS: guaiFENesin ER 600 MG TAB PO SCH ×2 (10:30→20:42)
[2021-01-03] MEDS: Gabapentin 300 MG CAP PO SCH ×3 (10:30→20:41)
[2021-01-03] MEDS: Aspirin 81 mg Enteric Coated Tablet PO SCH (10:30)
[2021-01-03] MEDS: Pantoprazole 40 MG VIAL IVP SCH ×2 (10:30→20:43)
[2021-01-03] MEDS: NPH, Human Insulin Isophane 300 UNIT/3 ML VIAL SC SCH ×2 (10:30→20:40)
--- NOTE | 2021-01-03 14:11 | PDOC.HOSPP ---
- Subjective Encounter Date: 01/03/21 Encounter Time: 10:00 Subjective: F/u: cellulitis The patient reports pain in his left leg still with improvement. Wound vac in place. Blurry vision has improved after stopping prednisone. no new complaints - Objective Vital Signs & Weight: Weight Admit Weight 284 lb Weight 283 lb 15.286 oz I&O: 01/02/21 01/03/21 01/04/21 06:59 06:59 06:59 Intake Total 2175 2125 Output Total 2190 890 Balance -15 1235 Result Diagrams: 01/01/21 05:34 01/02/21 04:41 Additional Labs: Accuchecks 01/03/21 01/03/21 01/02/21 11:50 09:41 17:03 POC Glucose 189 H 163 H 136 H Hospitalist ROS - Review of Systems Constitutional: denies: fever, chills - Medication Medications: Active Medications Generic Name Dose Route Start Last Admin Trade Name Freq PRN Reason Stop Dose Admin Acetaminophen 1,000 mg 12/27/20 13:18 12/27/20 16:23 Acetaminophen 500 Mg Tab PO 1,000 mg Q6H PRN Administration Moderate to Severe Pain (6-10) Aspirin 81 mg 12/31/20 09:00 01/02/21 09:10 Aspirin 81 Mg Enteric Coated Tablet PO 81 mg DAILY EDDIE Administration Atorvastatin Calcium 20 mg 12/30/20 21:00 01/02/21 20:31 Atorvastatin Calcium 20 Mg Tab PO 20 mg HS EDDIE Administration Benzonatate 100 mg 12/21/20 21:06 12/26/20 20:54 Benzonatate 100 Mg Cap PO 100 mg Q6H PRN Administration Cough Gabapentin 300 mg 12/27/20 15:00 01/02/21 20:30 Gabapentin 300 Mg Cap PO 300 mg TID EDDIE Administration Guaifenesin 600 mg 12/23/20 21:00 01/02/21 23:20 Guaifenesin Er 600 Mg Tab PO Not Given Q12HR EDDIE Vancomycin HCl 2 gm/ Device 400 mls @ 200 mls/hr 12/27/20 18:00 01/02/21 17:47 IVPB 400 mls 0600,1800 EDDIE Administration Insulin Human Lispro 0 units 12/29/20 13:41 01/02/21 13:07 Humalog 300 Units/3 Ml Vial SC 9 unit .AGGRESSIVE SLIDING PRN Administration Aggressive Correctional Scale Insulin Human NPH 30 unit 12/30/20 21:00 01/02/21 21:56 Nph, Human Insulin Isophane 300 Unit/3 Ml Vial SC 30 unit BID EDDIE Administration Ondansetron HCl 4 mg 12/20/20 23:49 12/28/20 14:57 Ondansetron Pf 4 Mg/2 Ml Vial IVP 4 mg Q6H PRN Administration Nausea/Vomiting Pantoprazole Sodium 40 mg 12/27/20 21:00 01/02/21 23:20 Pantoprazole 40 Mg Vial IVP Not Given BID EDDIE Saccharomyces Boulardii 250 mg 12/23/20 09:00 01/02/21 09:10 Saccharomyces Boulardii 250 Mg Cap PO 250 mg DAILY EDDIE Administration Sodium Chloride 10 ml 12/21/20 09:00 01/02/21 23:21 Flush - Normal Saline 10 Ml Syringe IVF 10 ml Q12HR EDDIE Administration Hospitalist Exam Vitals: Weight Admit Weight 284 lb Weight 283 lb 15.286 oz General Appearance: NAD, awake alert Eye: PERRL, anicteric sclera ENT: normocephalic atraumatic, no oropharyngeal lesions Neck: no JVD Heart: RRR Respiratory: normal chest expansion Gastrointestinal: soft, non-distended Extremities: no cyanosis, no edema Extremities - other findings: left leg ulcer with wound vac Neurological: cranial nerve grossly intact, normal sensation to touch, no weakn ess Hosp A/P - Plan MRI left foot: high grade diabetic neuropathy. Dorsal mid foot and forefoot superficial blister. Diabetic myositis. Extensive celllulitis This is a 50 year old male who presented with swelling of his left foot. He also had an ulcer in that area and was in DKA originally on admission that was debr ided. He is now transferred to the floor Left foot necrotizing cellulitis s/p debridement - patient was on zosyn 2/2 to 2/ and then flagyl 2/ to 12/26, ceftriaxone 2/3 to 12/25 and meropenem 12/26 to 12/27. He then was switched to vancomycin 12/27 to 01/01 due to worsening anemia from antibiotics. MRI showed no osteomyelitis. He is s/p surgical debridement - continue vancomycin while here and switch to daptomycin on discharge, end date 01/30 - case management consult for outpatient antibiotics Folate deficiency Anemia - Hb 7.5, previous antibiotics discontinued due to concern of drug induced anemia. Haptoglobin normal. Repeat labs pending today - folate level 5, will start supplementation. B12 normal Blurry vision - likely diabetic retinopathy - patient has intact visual acuity but slight blurred vision, possibly from diabetes. Opthalmology thinks it is likely diabetic retinopathy Type II Diabetes - continue NPH 30 mg BID and humalog sliding scale. STeroids discontinued, blood sugar improved to 130 tp 130 Dispo: needs outpatient antibiotics , but may be difficult given inability to drive here for antibiotics
[2021-01-03 18:23] LABS: Hemoglobin 7.4 g/dL (14.0-18.0); Mean Corpuscular HGB CONC 31.1 g/dL (32.0-36.0); Mean Corpuscular Hemoglobin 30.1 pg (27.0-31.0); Mean Corpuscular Volume 96.8 fL (78.0-98.0); Mean Platelet Volume 7.4 fL (7.4-10.4); Platelet Count 273 thou/uL (130-400); RBC Distribution Width 15.8 % (11.5-14.5); Red Blood Cell (RBC) Count 2.46 mill/uL (4.70-6.10); White Blood Cell (WBC) Count 7.9 thou/uL (4.8-10.8)
[2021-01-03] MEDS: HumaLOG 300 UNITS/3 ML VIAL SC PRN (20:40)
[2021-01-03] MEDS: Atorvastatin Calcium 20 MG TAB PO SCH (20:42)
[2021-01-04] MEDS ORDERED: Vancomycin 1 GM/200 ML BAG ONE (04:38)
[2021-01-04] MEDS: VANCOMYCIN 2 GRAM/400 ML BAG 2 GM in Premix Bag 1 BAG IVPB SCH ×2 (04:56→18:02)
[2021-01-04] MEDS: Aspirin 81 mg Enteric Coated Tablet PO SCH (09:11)
[2021-01-04] MEDS: Folic Acid 1 MG TAB PO SCH (09:12)
[2021-01-04] MEDS: Saccharomyces boulardii 250 MG CAP PO SCH (09:12)
[2021-01-04] MEDS: Gabapentin 300 MG CAP PO SCH ×3 (09:12→20:40)
[2021-01-04] MEDS: guaiFENesin ER 600 MG TAB PO SCH ×2 (09:13→20:39)
[2021-01-04] MEDS: NPH, Human Insulin Isophane 300 UNIT/3 ML VIAL SC SCH ×2 (09:13→20:40)
[2021-01-04] MEDS: Pantoprazole 40 MG VIAL IVP SCH ×2 (10:23→20:41)
[2021-01-04] MEDS: traMADol HCl 50 MG TAB PO PRN (11:50)
[2021-01-04] MEDS ORDERED: LIDOCAINE 4% Topical Sol 4 ML SOLN.PK.G. TP PRN (12:10)
--- NOTE | 2021-01-04 14:58 | PRG ---
DATE OF SERVICE: 01/04/2021 SUBJECTIVE: He is feeling better, has no coughing anymore, has noticed swelling of the right lower extremity and some in the left as well. No shortness of breath or abdominal pain, voiding without difficulty. OBJECTIVE: VITAL SINGS: His vitals are normal essentially. BP 160/90, heart rate 82, respirations are 16, and O2 saturation 99%. The last wound photo is from the and shows the granulation at the base of the amputation site, pretty good granulation actually. LUNGS: Clear. HEART: S1 and S2, regular rate. ABDOMEN: Soft, not distended. Voiding without difficulty. LABORATORY DATA: White cell count 7.9, hemoglobin 7.4, and platelets are 273. Creatinine was 0.81. ASSESSMENT AND DISCUSSION: Type 2 diabetes; neuropathy with osteomyelitis; abscess, left foot status post perforating injury to the area with necrotizing infection, forefoot, 2nd and 3rd rays with improvement. Granulation tissue at the base now and group B strep was treated initially. In addition, patient had a marked decrease in hemoglobin in the span of just a few hours with the increase in LDH. Haptoglobin was normal but that does not rule out extravascular hemolysis, so I think that is the more likely scenario that he had a stroke vascular hemolysis. The corticosteroids have been tapered and so he is going to now continue on daptomycin in the outpatient setting. He will need to come once a day to the infusion area in the Oncology Service. End of therapy is calculated to be January 30. Job ID: [id number] MTDD
[2021-01-04] MEDS: Lidocaine 4% Topical Sol 50 ML BOT TOP PRN (15:22)
[2021-01-04 17:45] LABS: Vancomycin, Trough 14.6 ug/mL
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
[2021-01-04] MEDS: HumaLOG 300 UNITS/3 ML VIAL SC PRN (18:11)
[2021-01-04] MEDS: Atorvastatin Calcium 20 MG TAB PO SCH (20:39)
[2021-01-05] MEDS: VANCOMYCIN 2 GRAM/400 ML BAG 2 GM in Premix Bag 1 BAG IVPB SCH ×2 (05:51→17:48)
[2021-01-05] MEDS: Saccharomyces boulardii 250 MG CAP PO SCH (08:40)
[2021-01-05] MEDS: Aspirin 81 mg Enteric Coated Tablet PO SCH (08:40)
[2021-01-05] MEDS: Folic Acid 1 MG TAB PO SCH (08:40)
[2021-01-05] MEDS: guaiFENesin ER 600 MG TAB PO SCH ×2 (08:41→21:52)
[2021-01-05] MEDS: Gabapentin 300 MG CAP PO SCH ×3 (08:41→21:50)
[2021-01-05] MEDS: NPH, Human Insulin Isophane 300 UNIT/3 ML VIAL SC SCH ×2 (08:42→21:51)
[2021-01-05] MEDS: Pantoprazole 40 MG VIAL IVP SCH ×2 (08:42→21:51)
[2021-01-05] MEDS: HumaLOG 300 UNITS/3 ML VIAL SC PRN (12:17)
--- NOTE | 2021-01-05 17:06 | PDOC.HOSPP ---
- Subjective Encounter Date: 01/05/21 Encounter Time: 07:00 Subjective: F/u: cellulitis The patient states his right foot is swollen and was wondering whether he can get lasix renewed. Otherwise no new complaints Case management contacted for looking into [facility] for rehab, but no case management available there - Objective Vital Signs & Weight: Vital Signs (12 hours) Temp Pulse Resp BP Pulse Ox 01/05/21 12:21 98.7 F 81 18 164/90 H 99 01/05/21 09:00 94 L 01/05/21 07:44 98.7 F 71 20 144/82 H 100 Weight Admit Weight 284 lb Weight 283 lb 15.286 oz I&O: 01/04/21 01/05/21 01/06/21 06:59 06:59 06:59 Intake Total 650 1500 Output Total 600 900 Balance 50 600 Result Diagrams: 01/03/21 06:34 01/02/21 04:41 Additional Labs: Accuchecks 01/05/21 01/05/21 01/05/21 16:15 10:51 05:52 POC Glucose 130 H 175 H 118 H 01/04/21 01/04/21 20:40 16:42 POC Glucose 170 H 190 H Hospitalist ROS - Review of Systems Constitutional: denies: fever, chills - Medication Medications: Active Medications Generic Name Dose Route Start Last Admin Trade Name Freq PRN Reason Stop Dose Admin Acetaminophen 1,000 mg 12/27/20 13:18 12/27/20 16:23 Acetaminophen 500 Mg Tab PO 1,000 mg Q6H PRN Administration Moderate to Severe Pain (6-10) Aspirin 81 mg 12/31/20 09:00 01/05/21 08:40 Aspirin 81 Mg Enteric Coated Tablet PO 81 mg DAILY EDDIE Administration Atorvastatin Calcium 20 mg 12/30/20 21:00 01/04/21 20:39 Atorvastatin Calcium 20 Mg Tab PO 20 mg HS EDDIE Administration Benzonatate 100 mg 12/21/20 21:06 12/26/20 20:54 Benzonatate 100 Mg Cap PO 100 mg Q6H PRN Administration Cough Folic Acid 1 mg 01/03/21 09:00 01/05/21 08:40 Folic Acid 1 Mg Tab PO 1 mg DAILY EDDIE Administration Gabapentin 300 mg 12/27/20 15:00 01/05/21 14:31 Gabapentin 300 Mg Cap PO 300 mg TID EDDIE Administration Guaifenesin 600 mg 12/23/20 21:00 01/05/21 08:41 Guaifenesin Er 600 Mg Tab PO Not Given Q12HR EDDIE Vancomycin HCl 2 gm/ Device 400 mls @ 200 mls/hr 12/27/20 18:00 01/05/21 05:51 IVPB 400 mls 0600,1800 EDDIE Administration Insulin Human Lispro 0 units 12/29/20 13:41 01/05/21 12:17 Humalog 300 Units/3 Ml Vial SC 3 unit .AGGRESSIVE SLIDING PRN Administration Aggressive Correctional Scale Insulin Human NPH 30 unit 12/30/20 21:00 01/05/21 08:42 Nph, Human Insulin Isophane 300 Unit/3 Ml Vial SC 30 unit BID EDDIE Administration Lidocaine HCl 0 ml 01/04/21 13:30 01/04/21 15:22 Lidocaine 4% Topical Tanisha 50 Ml Bot TOP 1 vial DAILYPRN PRN Administration Pain Ondansetron HCl 4 mg 12/20/20 23:49 12/28/20 14:57 Ondansetron Pf 4 Mg/2 Ml Vial IVP 4 mg Q6H PRN Administration Nausea/Vomiting Pantoprazole Sodium 40 mg 12/27/20 21:00 01/05/21 08:42 Pantoprazole 40 Mg Vial IVP 40 mg BID EDDIE Administration Saccharomyces Boulardii 250 mg 12/23/20 09:00 01/05/21 08:40 Saccharomyces Boulardii 250 Mg Cap PO 250 mg DAILY EDDIE Administration Sodium Chloride 10 ml 12/21/20 09:00 01/05/21 08:44 Flush - Normal Saline 10 Ml Syringe IVF 10 ml Q12HR EDDIE Administration Tramadol HCl 50 mg 12/27/20 13:18 01/04/21 11:50 Tramadol Hcl 50 Mg Tab PO 50 mg Q6H PRN Administration Moderate Pain (4-6) Hospitalist Exam Vitals: Vital Signs (12 hours) Temp Pulse Resp BP Pulse Ox 01/05/21 12:21 98.7 F 81 18 164/90 H 99 01/05/21 09:00 94 L 01/05/21 07:44 98.7 F 71 20 144/82 H 100 Weight Admit Weight 284 lb Weight 283 lb 15.286 oz General Appearance: NAD, awake alert Eye: PERRL, anicteric sclera ENT: normocephalic atraumatic, no oropharyngeal lesions Neck: no JVD Heart: RRR, no murmur, no gallops, no rubs Respiratory: CTAB, no wheezes, no rales, no ronchi Gastrointestinal: soft, non-tender, non-distended, normal bowel sounds, no palpable masses, no hepatomegaly, no splenomegaly, no bruit Extremities: no cyanosis, no clubbing, no edema Skin: normal turgor, no lesions, no rashes Neurological: cranial nerve grossly intact, normal sensation to touch Musculoskeletal: normal tone, normal strength, no muscle wasting Psychiatric: normal affect, normal behavior, A&O x 3 Hosp A/P - Plan MRI left foot: high grade diabetic neuropathy. Dorsal mid foot and forefoot superficial blister. Diabetic myositis. Extensive celllulitis This is a 50 year old male who presented with swelling of his left foot. He also had an ulcer in that area and was in DKA originally on admission that was debrided. He is now transferred to the floor Left foot necrotizing cellulitis s/p debridement - patient was on zosyn 2/2 to 2/ and then flagyl 2/3 to 2, ceftriaxone 2/3 to 26 and meropenem 12/26 to 12/27. He then was switched to vancomycin 12/27 to 01/01 due to worsening anemia from antibiotics. MRI showed no osteomyelitis. He is s/p surgical debridement - continue vancomycin while here and switch to daptomycin on discharge, end date 01/30 - case management consult for outpatient antibiotics. patient unable to drive, here, will try placement Folate deficiency Anemia - Hb 7.5, previous antibiotics discontinued due to concern of drug induced anemia. Haptoglobin normal. Repeat labs pending today - folate level 5, started supplementation. B12 normal Blurry vision - likely diabetic retinopathy - patient has intact visual acuity but slight blurred vision, possibly from diabetes. Opthalmology thinks it is likely diabetic retinopathy Type II Diabetes - continue NPH 30 mg BID and humalog sliding scale. STeroids discontinued, blood sugar improved to 130 tp 130 Dispo: pending placement at [facility]
[2021-01-05] MEDS: traMADol HCl 50 MG TAB PO PRN (19:51)
[2021-01-05] MEDS: Atorvastatin Calcium 20 MG TAB PO SCH (21:51)
[2021-01-05] MEDS ORDERED: Furosemide 40 MG TAB PO SCH (22:00)
[2021-01-06] MEDS: VANCOMYCIN 2 GRAM/400 ML BAG 2 GM in Premix Bag 1 BAG IVPB SCH ×2 (05:38→17:25)
[2021-01-06] MEDS: HumaLOG 300 UNITS/3 ML VIAL SC PRN ×3 (05:40→17:26)
[2021-01-06] MEDS: Gabapentin 300 MG CAP PO SCH ×2 (08:27→15:54)
[2021-01-06] MEDS: Aspirin 81 mg Enteric Coated Tablet PO SCH (08:27)
[2021-01-06] MEDS: guaiFENesin ER 600 MG TAB PO SCH ×2 (08:28→22:24)
[2021-01-06] MEDS: Saccharomyces boulardii 250 MG CAP PO SCH (08:28)
[2021-01-06] MEDS: Pantoprazole 40 MG VIAL IVP SCH ×2 (08:28→22:34)
[2021-01-06] MEDS: Folic Acid 1 MG TAB PO SCH (08:28)
[2021-01-06] MEDS: NPH, Human Insulin Isophane 300 UNIT/3 ML VIAL SC SCH ×2 (08:30→22:35)
[2021-01-06] MEDS ORDERED: Furosemide 40 MG/4 ML VIAL SLOW IVP SCH (11:00)
--- NOTE | 2021-01-06 15:39 | PDOC.HOSPP ---
- Subjective Encounter Date: 01/06/21 Encounter Time: 09:00 Subjective: F/u: necrotizing cellulitis The patient reports increasing swelling in his lower extremities, wants lasix renewed. He states his legs are feeling more tight. He doesn't know the lasix dose he takes at home, but states it was once daily. He also states he takes gabapentin 300 mg once a day, but not three times a day He is walking better. He was not interested in going home to do outpatient antibiotics, but all rehabs have declined, including [facility] which is unfunded. DIscussed with Dr. Larson about oral antibiotics and he recommended clindamycin and augmentin. However, patient decided to just continue with IV antibiotic option and will call his family members and see if he can drive here himself. He states that his brother lives in [place] and he won't be able to pick him up from the hospital until Sunday - Objective Vital Signs & Weight: Vital Signs (12 hours) Temp Pulse Resp BP Pulse Ox 01/06/21 11:34 138/80 01/06/21 08:39 99 01/06/21 07:38 98.4 F 85 18 128/77 99 Weight Admit Weight 284 lb Weight 283 lb 15.286 oz I&O: 01/05/21 01/06/21 01/07/21 06:59 06:59 06:59 Intake Total 1500 1900 Output Total 900 1600 Balance 600 300 Result Diagrams: 01/03/21 06:34 01/02/21 04:41 Additional Labs: Accuchecks 01/06/21 01/06/21 01/05/21 11:34 05:07 20:25 POC Glucose 197 H 128 H 190 H 01/05/21 16:15 POC Glucose 130 H Hospitalist ROS - Review of Systems Constitutional: denies: fever, chills - Medication Medications: Active Medications Generic Name Dose Route Start Last Admin Trade Name Freq PRN Reason Stop Dose Admin Acetaminophen 1,000 mg 12/27/20 13:18 12/27/20 16:23 Acetaminophen 500 Mg Tab PO 1,000 mg Q6H PRN Administration Moderate to Severe Pain (6-10) Aspirin 81 mg 12/31/20 09:00 01/06/21 08:27 Aspirin 81 Mg Enteric Coated Tablet PO 81 mg DAILY EDDIE Administration Atorvastatin Calcium 20 mg 12/30/20 21:00 02/17/21 21:51 Atorvastatin Calcium 20 Mg Tab PO 20 mg HS EDDIE Administration Benzonatate 100 mg 12/21/20 21:06 12/26/20 20:54 Benzonatate 100 Mg Cap PO 100 mg Q6H PRN Administration Cough Folic Acid 1 mg 01/03/21 09:00 01/06/21 08:28 Folic Acid 1 Mg Tab PO 1 mg DAILY EDDIE Administration Gabapentin 300 mg 12/27/20 15:00 01/06/21 08:27 Gabapentin 300 Mg Cap PO 300 mg TID EDDIE Administration Guaifenesin 600 mg 12/23/20 21:00 01/06/21 08:28 Guaifenesin Er 600 Mg Tab PO Not Given Q12HR EDDIE Vancomycin HCl 2 gm/ Device 400 mls @ 200 mls/hr 12/27/20 18:00 01/06/21 05:38 IVPB 400 mls 0600,1800 EDDIE Administration Insulin Human Lispro 0 units 12/29/20 13:41 01/06/21 11:35 Humalog 300 Units/3 Ml Vial SC 3 unit .AGGRESSIVE SLIDING PRN Administration Aggressive Correctional Scale Insulin Human NPH 30 unit 12/30/20 21:00 01/06/21 08:30 Nph, Human Insulin Isophane 300 Unit/3 Ml Vial SC 30 unit BID EDDIE Administration Lidocaine HCl 0 ml 01/04/21 13:30 01/04/21 15:22 Lidocaine 4% Topical Tanisha 50 Ml Bot TOP 1 vial DAILYPRN PRN Administration Pain Ondansetron HCl 4 mg 12/20/20 23:49 12/28/20 14:57 Ondansetron Pf 4 Mg/2 Ml Vial IVP 4 mg Q6H PRN Administration Nausea/Vomiting Pantoprazole Sodium 40 mg 12/27/20 21:00 01/06/21 08:28 Pantoprazole 40 Mg Vial IVP 40 mg BID EDDIE Administration Saccharomyces Boulardii 250 mg 12/23/20 09:00 01/06/21 08:28 Saccharomyces Boulardii 250 Mg Cap PO 250 mg DAILY EDDIE Administration Sodium Chloride 10 ml 12/21/20 09:00 01/06/21 08:35 Flush - Normal Saline 10 Ml Syringe IVF 10 ml Q12HR EDDIE Administration Sodium Chloride 10 ml 12/21/20 07:15 01/06/21 11:32 Flush - Normal Saline 10 Ml Syringe IVF 10 ml PRN PRN Administration Saline Flush Hospitalist Exam Vitals: Vital Signs (12 hours) Temp Pulse Resp BP Pulse Ox 01/06/21 11:34 138/80 01/06/21 08:39 99 01/06/21 07:38 98.4 F 85 18 128/77 99 Weight Admit Weight 284 lb Weight 283 lb 15.286 oz General Appearance: NAD, awake alert Eye: PERRL, anicteric sclera ENT: normocephalic atraumatic, no oropharyngeal lesions Neck: no JVD Heart: RRR, no murmur, no gallops, no rubs Respiratory: CTAB, no wheezes, no rales, no ronchi Gastrointestinal: soft, non-tender, non-distended, normal bowel sounds Extremities: no cyanosis, no clubbing, 2+ LE edema Skin: normal turgor, no lesions, no rashes Neurological: cranial nerve grossly intact, normal sensation to touch, no weakness, no focal deficits, no new deficit Hosp A/P - Plan MRI left foot: high grade diabetic neuropathy. Dorsal mid foot and forefoot superficial blister. Diabetic myositis. Extensive celllulitis This is a 50 year old male who presented with swelling of his left foot. He also had an ulcer in that area and was in DKA originally on admission that was debrided. He is now transferred to the floor Left foot necrotizing cellulitis s/p debridement - patient was on zosyn 2/2 to 2/3 and then flagyl 2/3 to 2, ceftriaxone 2/3 to 2 and meropenem 12/26 to 12/27. He then was switched to vancomycin 12/27 to 01/01 due to worsening anemia from antibiotics. MRI showed no osteomyelitis. He is s/p surgical debridement - continue vancomycin while here and switch to daptomycin on discharge, end date 01/30 - patient has been approved for outpatient antibiotics. Patient was resistant, and explored other alternatives including unfunded rehab, but this was declined. Patient agreeable to go home , but needs to call family to pick him u p and they won't be available until Sunday Peripheral edema - resumed lasix 40 mg IV . Continue IV diuresis and transition in 1-2 days - will reduce gabapentin dose to 300 mg qam Folate deficiency Anemia - Hb 7.5, previous antibiotics discontinued due to concern of drug induced anemia. Haptoglobin normal. Repeat labs pending today - folate level 5, started supplementation. B12 normal Blurry vision - likely diabetic retinopathy - patient has intact visual acuity but slight blurred vision, possibly from diabetes. Opthalmology thinks it is likely diabetic retinopathy Type II Diabetes - continue NPH 30 mg BID and humalog sliding scale. STeroids discontinued, blood sugar improved to 130 tp 130 Dispo: likely discharge on sunday
[2021-01-06 16:21] LABS: Hemoglobin 8.7 g/dL (14.0-18.0); Mean Corpuscular HGB CONC 31.4 g/dL (32.0-36.0); Mean Corpuscular Hemoglobin 29.9 pg (27.0-31.0); Mean Corpuscular Volume 95.1 fL (78.0-98.0); Mean Platelet Volume 7.2 fL (7.4-10.4); Platelet Count 205 thou/uL (130-400); RBC Distribution Width 14.7 % (11.5-14.5); Red Blood Cell (RBC) Count 2.92 mill/uL (4.70-6.10); White Blood Cell (WBC) Count 5.4 thou/uL (4.8-10.8)
[2021-01-06 16:44] LABS: ALT (SGPT) 13 U/L (8-55); AST (SGOT) 15 U/L (5-34); Albumin 2.7 g/dL (3.5-5.0); Alkaline Phosphatase 77 U/L (40-110); Anion Gap 11 mmol/L (10-20); BUN (Urea Nitrogen) 11 mg/dL (8.4-25.7); Bilirubin, Total 0.3 mg/dL (0.2-1.2); Calc. Creatinine Clearance 175 mL/min (70-130); Calcium 8.2 mg/dL (7.8-10.44); Carbon Dioxide 25 mmol/L (22-29); Chloride 107 mmol/L (98-107); Globulin 3.3 g/dL (2.4-3.5); Glucose 209 mg/dL (70-105); Potassium 4.3 mmol/L (3.5-5.1); Sodium 139 mmol/L (136-145)
[2021-01-06] MEDS: Atorvastatin Calcium 20 MG TAB PO SCH (22:34)
[2021-01-07] MEDS: traMADol HCl 50 MG TAB PO PRN ×2 (00:06→12:20)
[2021-01-07] MEDS: VANCOMYCIN 2 GRAM/400 ML BAG 2 GM in Premix Bag 1 BAG IVPB SCH ×2 (05:38→18:34)
[2021-01-07] MEDS: Saccharomyces boulardii 250 MG CAP PO SCH (08:37)
[2021-01-07] MEDS: Gabapentin 300 MG CAP PO SCH (08:37)
[2021-01-07] MEDS: Aspirin 81 mg Enteric Coated Tablet PO SCH (08:37)
[2021-01-07] MEDS: Folic Acid 1 MG TAB PO SCH (08:38)
[2021-01-07] MEDS: NPH, Human Insulin Isophane 300 UNIT/3 ML VIAL SC SCH ×2 (08:38→20:29)
[2021-01-07] MEDS: Furosemide 40 MG/4 ML VIAL SLOW IVP SCH (08:38)
[2021-01-07] MEDS: Pantoprazole 40 MG VIAL IVP SCH ×2 (08:38→20:29)
[2021-01-07] MEDS: guaiFENesin ER 600 MG TAB PO SCH ×2 (08:39→20:28)
[2021-01-07] MEDS: Lidocaine 4% Topical Sol 50 ML BOT TOP PRN (14:00)
--- NOTE | 2021-01-07 15:42 | PDOC.HOSPP ---
- Subjective Encounter Date: 01/07/21 Encounter Time: 09:00 Subjective: F/u: diabetes The patient has no new complaints. He is diuresing with lasix. Patient states he wants a handicap sticker for when he drives to get his antibiotic everyday . He says his friend is going to pick him up tomorrow after 4:00 pm - Objective Vital Signs & Weight: Vital Signs (12 hours) Temp Pulse Resp BP Pulse Ox 01/07/21 09:00 98 01/07/21 07:54 98.4 F 79 16 159/76 H 98 Weight Admit Weight 284 lb Weight 283 lb 15.286 oz I&O: 01/06/21 01/07/21 01/08/21 06:59 06:59 06:59 Intake Total 1900 3580 Output Total 1600 800 Balance 300 2780 Result Diagrams: 01/06/21 16:09 01/06/21 16:09 Additional Labs: Accuchecks 01/07/21 01/06/21 05:40 20:22 POC Glucose 113 H 163 H Hospitalist ROS - Review of Systems Constitutional: denies: fever, chills - Medication Medications: Active Medications Generic Name Dose Route Start Last Admin Trade Name Freq PRN Reason Stop Dose Admin Acetaminophen 1,000 mg 12/27/20 13:18 12/27/20 16:23 Acetaminophen 500 Mg Tab PO 1,000 mg Q6H PRN Administration Moderate to Severe Pain (6-10) Aspirin 81 mg 12/31/20 09:00 01/07/21 08:37 Aspirin 81 Mg Enteric Coated Tablet PO 81 mg DAILY EDDIE Administration Atorvastatin Calcium 20 mg 12/30/20 21:00 01/06/21 22:34 Atorvastatin Calcium 20 Mg Tab PO 20 mg HS EDDIE Administration Benzonatate 100 mg 12/21/20 21:06 12/26/20 20:54 Benzonatate 100 Mg Cap PO 100 mg Q6H PRN Administration Cough Folic Acid 1 mg 01/03/21 09:00 01/07/21 08:38 Folic Acid 1 Mg Tab PO 1 mg DAILY EDDIE Administration Furosemide 40 mg 01/07/21 09:00 01/07/21 08:38 Furosemide 40 Mg/4 Ml Vial SLOW IVP 40 mg DAILY EDDIE Administration Gabapentin 300 mg 01/07/21 09:00 01/07/21 08:37 Gabapentin 300 Mg Cap PO 300 mg QAM EDDIE Administration Guaifenesin 600 mg 12/23/20 21:00 01/07/21 08:39 Guaifenesin Er 600 Mg Tab PO Not Given Q12HR EDDIE Vancomycin HCl 2 gm/ Device 400 mls @ 200 mls/hr 01/07/21 06:00 01/07/21 05:38 IVPB 400 mls 0600,1800 EDDIE Administration Insulin Human Lispro 0 units 12/29/20 13:41 01/06/21 17:26 Humalog 300 Units/3 Ml Vial SC 6 unit .AGGRESSIVE SLIDING PRN Administration Aggressive Correctional Scale Insulin Human NPH 30 unit 12/30/20 21:00 01/07/21 08:38 Nph, Human Insulin Isophane 300 Unit/3 Ml Vial SC 30 unit BID EDDIE Administration Lidocaine HCl 0 ml 01/04/21 13:30 01/04/21 15:22 Lidocaine 4% Topical Tanisha 50 Ml Bot TOP 1 vial DAILYPRN PRN Administration Pain Ondansetron HCl 4 mg 12/20/20 23:49 12/28/20 14:57 Ondansetron Pf 4 Mg/2 Ml Vial IVP 4 mg Q6H PRN Administration Nausea/Vomiting Pantoprazole Sodium 40 mg 12/27/20 21:00 01/07/21 08:38 Pantoprazole 40 Mg Vial IVP 40 mg BID EDDIE Administration Saccharomyces Boulardii 250 mg 12/23/20 09:00 01/07/21 08:37 Saccharomyces Boulardii 250 Mg Cap PO 250 mg DAILY EDDIE Administration Sodium Chloride 10 ml 12/21/20 09:00 01/07/21 08:39 Flush - Normal Saline 10 Ml Syringe IVF 10 ml Q12HR EDDIE Administration Sodium Chloride 10 ml 12/21/20 07:15 01/06/21 17:28 Flush - Normal Saline 10 Ml Syringe IVF 10 ml PRN PRN Administration Saline Flush Tramadol HCl 50 mg 01/06/21 23:49 01/07/21 12:20 Tramadol Hcl 50 Mg Tab PO 50 mg Q6H PRN Administration Severe Pain (7-10) Hospitalist Exam Vitals: Vital Signs (12 hours) Temp Pulse Resp BP Pulse Ox 01/07/21 09:00 98 01/07/21 07:54 98.4 F 79 16 159/76 H 98 Weight Admit Weight 284 lb Weight 283 lb 15.286 oz General Appearance: NAD, awake alert General - other findings: morbidly obese Eye: PERRL, anicteric sclera ENT: normocephalic atraumatic, no oropharyngeal lesions Neck: no JVD Heart: RRR, no murmur, no gallops, no rubs Respiratory: CTAB, no wheezes, no rales, no ronchi Gastrointestinal: soft, non-tender, non-distended, normal bowel sounds Extremities: no cyanosis, no clubbing, 1+ LE edema Skin: normal turgor, no lesions, no rashes Hosp A/P - Plan MRI left foot: high grade diabetic neuropathy. Dorsal mid foot and forefoot superficial blister. Diabetic myositis. Extensive celllulitis This is a 50 year old male who presented with swelling of his left foot. He also had an ulcer in that area and was in DKA originally on admission that was debrided. He is now transferred to the floor Left foot necrotizing cellulitis s/p debridement - patient was on zosyn 12/21 to 12/22 and then flagyl 12/22 to 12/26, ceftriaxone 12/22 to 12/25 and meropenem 12/26 to 12/27. He then was switched to vancomycin 12/27 to 01/01 due to worsening anemia from antibiotics. MRI showed no osteomyelitis. He is s/p surgical debridement - continue vancomycin while here and switch to daptomycin on discharge, end date 01/30 . -01/07: Will switch to daptomycin tomorrow since patient plans to leave tomorrow. Ride will come to get him at 4:00 pm . needs wound care at [place] on [address] Peripheral edema - resumed lasix 40 mg IV . Continue IV diuresis and transition to oral lasix tomorrow Folate deficiency Anemia - Hb up to 8.5. Had severe anemia on 12/27 possibly from ceftriaxone. Counts improved with discontinuation. Haptoglobin normal - folate level 5, started supplementation. B12 normal Blurry vision - likely diabetic retinopathy - improved after stopping prednisone. Opthalmology thinks it is likely diabetic retinopathy Type II Diabetes - continue NPH 30 mg BID and humalog sliding scale. STeroids discontinued, blood sugars stable - prescribed dexcom meter for discharge since patient does not have insurance and does not want to check his fingersticks four times daily Dispo: d/c tomorrow
[2021-01-07] MEDS ORDERED: Lisinopril 5 MG TAB PO SCH (16:00)
[2021-01-07] MEDS: HumaLOG 300 UNITS/3 ML VIAL SC PRN (18:35)
[2021-01-07 18:52] LABS: Vancomycin, Trough 19.2 ug/mL
[2021-01-07] MEDS: Atorvastatin Calcium 20 MG TAB PO SCH (20:29)
[2021-01-08] MEDS ORDERED: Lisinopril 5 MG TAB PO SCH (09:00)
[2021-01-08] MEDS: Gabapentin 300 MG CAP PO SCH (09:48)
[2021-01-08] MEDS: Aspirin 81 mg Enteric Coated Tablet PO SCH (09:49)
[2021-01-08] MEDS: guaiFENesin ER 600 MG TAB PO SCH (09:49)
[2021-01-08] MEDS: Furosemide 40 MG/4 ML VIAL SLOW IVP SCH (09:50)
[2021-01-08] MEDS: NPH, Human Insulin Isophane 300 UNIT/3 ML VIAL SC SCH (09:50)
[2021-01-08] MEDS: Saccharomyces boulardii 250 MG CAP PO SCH (09:50)
[2021-01-08] MEDS: Folic Acid 1 MG TAB PO SCH (09:50)
[2021-01-08] MEDS: Pantoprazole 40 MG VIAL IVP SCH (09:52)
--- NOTE | 2021-01-08 10:02 | PDOC.DS.DS ---
Provider Date of Admission: 12/20/20 23:21 Date of Discharge: 01/08/21 Admitting Provider: Garett Freeman MD Consultations: General Surgery (Dr. Arias), Infectious Disease (Dr. Larson), Oncology (Ms. Cee Lin), Other (Ophthalmology: Dr. Menendez) Primary Care Physician: NO PCP PROVIDER Course Hospital Course: Discharge diagnosis: 1. Diabetic ketoacidosis 2. Acute kidney injury 3. Diabetic foot infection 4. Anemia 5. Hyponatremia 6. Hyperkalemia 7. Folic acid deficiency 8. COVID-19 test negative Hospital course: Patient is a pleasant 50-year-old gentleman who was admitted to the hospital on December 20, 2020 for diabetic ketoacidosis and left foot swelling. He received intravenous fluids and intravenous insulin. He was also started on intravenous antibiotics. He was also found to have acute kidney injury. MRI of the left foot did not show findings for osteomyelitis. He had relatively moderate to high-grade diabetic neuropathy of the midfoot. 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 Radiologist recommended removal. Patient was also found to have diabetic myositis and extensive cellulitis without high-grade abscess. He was seen by general surgery service. His antibiotics were changed, infectious disease service was consulted. He had surgical bedside debridement of blister dorsum and plantar foot, bedside debridement of skin and subcutaneous tissue and plantar with necrotic tissue, extending deeply. He was continued on intravenous antibiotics. He had left upper extremity PICC line placed. His hospital stay was complicated by the development of anemia. It was initially felt that this was drug-induced, ther efore his antibiotics were changed. He was seen by oncology service and started on steroids. There was no clear evidence of hemolysis. His counts improved. 2D echocardiogram did not show thrombi, masses, PFO or ASD. Left ventricle ejection fraction was 60 to 65%. Cultures from the foot grew Streptococcus agalactiae group B and Enterococcus faecalis. Towards the end of the hospitalization, patient was being treated with vancomycin. He is being switched to daptomycin to facilitate once a day dosage as outpatient. Case management try to get him into swing [facility] but his application was denied. He was also seen by ophthalmology service for of blurry vision. It was felt that the blurry vision was secondary to fluctuation in blood sugars. Ophthalmology service would like to follow-up with him as outpatient. Patient needs IV daptomycin until January 30, 2021. Case management has also arranged for wound clinic appointment. Many thanks for allowing me to participate in your patient's care. Please feel free to contact me with any questions or concerns. Discharge destination: Home Total amount of time spent coordinating this discharge: 33 minutes Resuscitation Status: 12/20/20 23:49 Resuscitation Status Routine Resuscitation Status: FULL: Full Resuscitation Lab Results: 01/06/21 16:09 01/06/21 16:09 Abnormal Lab Results - Last 48 hrs 01/06/21 16:09: Albumin 2.7 L, Albumin/Globulin Ratio 0.8 L 01/06/21 16:09: RBC 2.92 L, Hgb 8.7 L, Hct 27.8 L, MCHC 31.4 L, RDW 14.7 H, MPV 7.2 L Microbiology - Entire Visit 12/27/20 09:27 Venous blood - Left Arm Blood Culture - Final NO GROWTH IN 5 DAYS 12/27/20 09:27 Venous blood - Right Arm Blood Culture - Final NO GROWTH IN 5 DAYS 12/27/20 15:25 Stool Stool Occult Blood (CASIE) - Final 12/21/20 18:11 Foot - Abscess Bacterial Culture - Final Streptococcus agalactiae Gp. B 12/21/20 18:11 Foot - Abscess Anaerobic Culture - Final 12/21/20 16:33 Foot Bacterial Culture - Final Streptococcus agalactiae Gp. B Yeast species 12/20/20 20:41 Venous blood - Right Arm Blood Culture - Final NO GROWTH IN 5 DAYS 12/20/20 20:53 Venous blood - Left Arm Blood Culture - Final NO GROWTH IN 5 DAYS 12/20/20 20:41 Foot - Pending Bacterial Culture - Final Enterococcus faecalis Streptococcus agalactiae Gp. B Vitals: Vital Signs (12 hours) Temp Pulse Resp BP Pulse Ox 01/08/21 07:28 99.0 F 80 16 136/86 99 Weight Admit Weight 284 lb Weight 283 lb 15.286 oz Physical Exam: The patient was seen and examined on the day of discharge. Patient denies chest pain or shortness of breath. Vital signs are stable. S1 and S2 are heard. Lungs are clear to auscultation bilaterally. Plan Prescriptions: Blood-Glucose Meter,Continuous [Dexcom G6] 1 each MC ACHS #1 each Folic Acid [Folvite] 1 mg PO DAILY #30 tab Gabapentin [Neurontin] 300 mg PO QAM #30 cap Lisinopril [Zestril] 5 mg PO DAILY #30 tab Home Medications: Medication Instructions Recorded Confirmed Type metFORMIN HCl 1 tab PO DAILY 12/21/20 12/21/20 History Blood-Glucose Meter,Continuous 1 each ACHS #1 each 01/07/21 Rx [Dexcom G6] Folic Acid [Folvite] 1 mg PO DAILY #30 tab 01/07/21 Rx Gabapentin [Neurontin] 300 mg PO QAM #30 cap 01/07/21 Rx Lisinopril [Zestril] 5 mg PO DAILY #30 tab 01/08/21 Rx Allergies: Cephalosporins Allergy (Severe, Verified 12/28/20 12:03) POSSIBLE HEMOLYSIS REACTION Discharge Instructions:: You presented with necrotizing cellulitis. You underwent surgical debridement. You will need IV daptomycin until 01/30. Please come to the outpatient wound care clinic 2-3 times a week at [facility] get weekly CBC, CRP and BMP Follow up with [facility] clinic in a week. Check your blood sugars ideally at least twice daily. I prescribed you dexcom glucometer YOUR PRESCRIPTIONS WERE SENT TO: [facility] [address] [place] [address] Activity:: Activity as Tolerated Referrals: outpatient infusion, [facility] [Other] - 1 Day (First outpatient infusion appointment-- Sunday01/09/21 @ 10:00 AM. You will need to report to the [facility] Emergency Room (ER) in [place] prior to your first infusion appt to register for your outpatient infusion services. The [facility]fusion Center is located on the first floor of the [facility] in [place] on the oncology unit. The phone # to the unit is [phone]. ) wound care, [facility] [Other] - 1 Day (You will need to contact the [facility]ound [facility] Clinic on Sunday01/10/21 in the AM to confirm date /time for your first outpatient appointment for your wound vac dressing change. Anticipated appt will be on 01/11/21, time yet to be determined. The outpatient wound care clinic is located at ) David Arias MD [Active] - 2-3 Weeks Noel Larson MD [Active] - Alex Menendez MD [Active] - 3-4 Weeks PROVIDER,NO PCP [Primary Care Provider] - 3 Days Cee Lin APRN [Allied Health Professional] - Disposition: HOME Quality CORE MEASURES:: N/A
[2021-01-08 15:54] VITALS: BP 148/82; TEMP 98.5
== END 2021-01-08 18:22 | disposition home or self-care (01) | DRG 853 ==
LOC: ERS 20:21 → T4-A 23:10 → ERHOLD 23:21 → T4-A 12-21 13:18
PROVIDERS: ADMIT Student in an Organized Health Care Education/Training Program; ATTEND Internal Medicine
PROC: 0Y6Q0Z1 Detachment at Left 1st Toe, High, Open Approach (ICD-10-PCS; principal; 2020-12-21)
PROC: 0Y6U0Z1 Detachment at Left 3rd Toe, High, Open Approach (ICD-10-PCS; 2020-12-21)
PROC: 0Y6S0Z1 Detachment at Left 2nd Toe, High, Open Approach (ICD-10-PCS; 2020-12-21)
PROC: 0JBR0ZZ Excision of Left Foot Subcutaneous Tissue and Fascia, Open Approach (ICD-10-PCS; 2020-12-21)
PROC: 02HV33Z Insertion of Infusion Device into Superior Vena Cava, Percutaneous Approach (ICD-10-PCS; 2020-12-24)
PROC: B548ZZA Ultrasonography of Superior Vena Cava, Guidance (ICD-10-PCS; 2020-12-24)
PROC: 30233N1 Transfusion of Nonautologous Red Blood Cells into Peripheral Vein, Percutaneous Approach (ICD-10-PCS; 2020-12-27)
DX: A40.1 Sepsis due to streptococcus, group B (principal); E11.10 Type 2 diabetes mellitus with ketoacidosis without coma; N17.9 Acute kidney failure, unspecified; Z20.822 Contact with and (suspected) exposure to COVID-19; L03.116 Cellulitis of left lower limb; E11.52 Type 2 diabetes mellitus with diabetic peripheral angiopathy with gangrene; I96 Gangrene, not elsewhere classified; E87.1 Hypo-osmolality and hyponatremia; D62 Acute posthemorrhagic anemia; D59.2 Drug-induced nonautoimmune hemolytic anemia; M86.8X7 Other osteomyelitis, ankle and foot; R65.20 Severe sepsis without septic shock; I10 Essential (primary) hypertension; M60.872 Other myositis, left ankle and foot; E78.5 Hyperlipidemia, unspecified; E88.81 Metabolic syndrome and other insulin resistance; E87.5 Hyperkalemia; T37.3X5A Adverse effect of other antiprotozoal drugs, initial encounter; T36.1X5A Adverse effect of cephalosporins and other beta-lactam antibiotics, initial encounter; T36.8X5A Adverse effect of other systemic antibiotics, initial encounter; T37.8X5A Adverse effect of other specified systemic anti-infectives and antiparasitics, initial encounter; E66.01 Morbid (severe) obesity due to excess calories; E11.319 Type 2 diabetes mellitus with unspecified diabetic retinopathy without macular edema; A41.81 Sepsis due to Enterococcus; D52.9 Folate deficiency anemia, unspecified; Z90.49 Acquired absence of other specified parts of digestive tract; Z87.891 Personal history of nicotine dependence; Z79.84 Long term (current) use of oral hypoglycemic drugs; Z79.899 Other long term (current) drug therapy; Z68.37 Body mass index [BMI] 37.0-37.9, adult; Z88.1 Allergy status to other antibiotic agents; E11.69 Type 2 diabetes mellitus with other specified complication
CPT/HCPCS: 36415; 36416; 36430; 36569; 70450; 71045; 80048; 80053; 80061; 80076; 80202; 81001; 82274; 82607; 82728; 82746; 83010; 83036; 83540; 83550; 83605; 83615; 83735; 84443; 84484; 85025; 85027; 85046; 86850; 86880; 86900; 86901; 87040; 87070; 87077; 87186; 87205; 88305; 88311; 93005; 93306; 93970; 96365; 96366; 96367; C1751; C9113; J0690; J0692; J0696; J0878; J1100; J1644; J1815; J1885; J1940; J2185; J2270; J2405; J2543; J2704; J2930; J3010; J3370; J3480; J3490; J7512; P9016; U0002

== ENCOUNTER 2021-02-01 14:26 | Emergency (ER) | payer SELFPAY ==
[2021-02-01 22:47] LABS: SARS-CoV-2 PCR by NAA Not Detected (NotDetected)
== END 2021-02-01 15:58 | disposition home or self-care (01) ==
LOC: ERS 14:26
DX: R05 Cough (principal); R50.9 Fever, unspecified; Z20.822 Contact with and (suspected) exposure to COVID-19; E78.5 Hyperlipidemia, unspecified; I10 Essential (primary) hypertension; E11.9 Type 2 diabetes mellitus without complications; Z87.891 Personal history of nicotine dependence; Z79.84 Long term (current) use of oral hypoglycemic drugs; Z79.899 Other long term (current) drug therapy
CPT/HCPCS: 71045; 87635; U0003; U0005

== ENCOUNTER 2024-05-23 10:52 | Outpatient (CLI) | payer BC | END 2024-05-23 10:53 | disposition home or self-care (01) | LOC: BICRAD 10:52 | PROVIDERS: ATTEND Family Medicine | DX: Z01.818 Encounter for other preprocedural examination (principal) | CPT/HCPCS: 71046 ==